=== PATIENT | male | born 1975 | race Caucasian/White ===

== ENCOUNTER 2018-08-31 08:39 | Inpatient (IN) | payer SELFPAY ==
[2018-08-31 09:20] LABS: Absolute Monocytes 0.4 K/uL (0.1-1.3); Absolute Neutrophil 5.4 K/uL (1.8-8.0); Basophils % 0.7 % (0-1.3); Eosinophils % 0.4 % (0-4.4); Hematocrit 42.2 % (39.6-49.0); Lymphocytes % 14.1 % (15.3-44.8); MPV 8.8 fL (7.6-11.3); Monocytes % 6.4 % (3.3-12.3); RBC Red Blood Cell Count 4.67 M/uL (4.33-5.43)
[2018-08-31 09:28] LABS: Protime INR 1.11
[2018-08-31 09:41] LABS: ALT/SGPT 11 U/L (12-78); AST/SGOT 11 U/L (15-37); Albumin 2.7 g/dL (3.4-5.0); Alkaline Phosphatase 75 U/L (45-117); BUN Blood Urea Nitrogen 13 mg/dL (7-18); Bicarbonate 32 mmol/L (21-32); Bilirubin Direct 0.2 mg/dL (0-0.2); Bilirubin Total 0.5 mg/dL (0.2-1.0); Glucose Level 103 mg/dL (74-106); Lipase 212 U/L (73-393); Potassium 3.9 mmol/L (3.5-5.1); Protein, Total 8.2 g/dL (6.4-8.2); Sodium Level 140 mmol/L (136-145)
[2018-08-31] MEDS ORDERED: ONDANSETRON 4 MG/2 ML VIAL ONE ×2 (09:42→15:57)
[2018-08-31] MEDS ORDERED: MORPHINE 4 MG/ML SYR ONE ×2 (09:42→14:22)
[2018-08-31 10:26] LABS: Urine Blood NEGATIVE (NEG); Urine Glucose NEGATIVE (NEG); Urine Protein 1+ (NEG); Urine Specific Gravity 1.025 (1.005-1.030)
--- NOTE | 2018-08-31 10:55 | RAD REPORT ---
EXAM DESCRIPTION: CT - Abdomen Pelvis W Contrast - 08/31/2018 10:37 am CLINICAL HISTORY: Abdominal pain, abscess, history of hernia repair with colostomy reversal May 2018 remote diverticulitis history COMPARISON: CT imaging July 2017 TECHNIQUE: Biphasic, helical CT imaging of the abdomen and pelvis was performed following 100 ml non -ionic IV contrast. Oral contrast was given. All CT scans are performed using dose optimization technique as appropriate and may include automated exposure control or mA/KV adjustment according to patient size. FINDINGS: No suspicious findings in the lung bases. The liver, spleen, and pancreas show no suspicious findings. Gallbladder and biliary tree are also wi thout suspicious finding. Symmetric renal function is seen with no hydronephrosis or suspicious renal mass. No pyelonephritis o r acute parenchymal process. No bladder abnormalities. Left adrenal nodularity has not changed from p rior imaging. No gastric dilatation or wall thickening. No acute small bowel finding. There is no appendicitis. Tip of the cecum through the mid sigmoid colon shows no acute finding. Rectosigmoid anastomotic site laura ws trace stranding in the adjacent fat. This is within normal for the relatively recent reversal. No abscess or acute finding in the fatty tissues adjacent to the anastomotic site. No intraperitoneal o r retroperitoneal free air or free fluid. No bulky lymphadenopathy. No suspicious bony findings. In the deep subcutaneous fatty tissues superficial or anterior margin of the rectus abdominis muscula ture there is a large abscess. The abscess collection begins approximately 5 cm below the xiphoid pro cess extending 22 cm inferiorly. Abscesses 10 cm transverse by 2.5 cm AP. Fluid and air filled the ca vity. There is a thickened, irregular rind. The abscess abuts the abdominal wall fascia. The deeper a bdominal wall musculature is not abnormally thickened or edematous. No extension into the intraperito dariusz space. IMPRESSION: Large 22 x 10 x 2.5 cm abscess in the superficial soft tissues along the anterior abdomi nal wall. Abscess begins approximately 5 cm below the xiphoid process and abuts the hernia repair mesh along th e entire length. No intraperitoneal extension. Rectus abdominis musculature does not appear to be definitively involve d.
[2018-08-31] MEDS ORDERED: VANCOMYCIN/NS 1 gm 1 GM/250 ML BAG IV ONE (11:30)
[2018-08-31] MEDS ORDERED: PIPER/TAZO/NS 3.375gm 3.375 GM/100 ML BAG ONE (11:33)
--- NOTE | 2018-08-31 12:44 | EDPHYS ---
Physician Documentation [facility] Name: Kevin Chaudhary Age: 42 yrs Sex: Male : 1975 Arrival Date: 08/31/2018 Time: 08:44 Bed 18 Private MD: ED Physician Fidencio Loco HPI: 08/31 09:00 This 42 yrs old Male presents to ER via EMS with complaints of Wound Check, pm1 Incisional Drainage. 09:00 Patient presents to ED for recheck of: abscess. The affected area is on the abdomen. pm1 The patient has not recently seen a physician. Patient presenting to the ER with complaints of abdominal pain and drainage of fluid from his abdomen. Patient with perforated diverticulitis repair here in 2015. Revision of colostomy in May 2018 and hernia repair in [facility]. Patient reports that he had some abdominal pain that worsened over the past three days and then he woke up with fluid from his stomach this AM. Since his surgery he has reported seroma to his abdomen . Historical: - Allergies: 08:52 No Known Allergies; ss - Home Meds: 08:52 Nexium 40 mg Oral cpDR 1 cap once daily [Active]; ss - PMHx: 08:52 Diverticulitis; GERD; ss - PSHx: 08:52 Hernia repair; colostomy reversal; ss - Immunization history:: Adult Immunizations up to date. - Social history:: Smoking status: Patient uses tobacco products, smokes one pack cigarettes per day. - Ebola Screening: : Patient denies exposure to infectious person Patient denies travel to an Ebola-affected area in the 21 days before illness onset. ROS: 09:00 Constitutional: Negative for fever, chills, and weight loss, Eyes: Negative for injury, pm1 pain, redness, and discharge, ENT: Negative for injury, pain, and discharge, Neck: Negative for injury, pain, and swelling, Cardiovascular: Negative for chest pain, palpitations, and edema, Respiratory: Negative for shortness of breath, cough, wheezing, and pleuritic chest pain. 09:00 Back: Negative for injury and pain, : Negative for injury, bleeding, discharge, and swelling, MS/Extremity: Negative for injury and deformity. 09:00 Abdomen/GI: Positive for abdominal pain, Negative for nausea, vomiting, and diarrhea. 09:00 Skin: Positive for abscess, of the abdomen. Exam: 09:00 Constitutional: This is a well developed, well nourished patient who is awake, alert, pm1 and in no acute distress. Head/Face: Normocephalic, atraumatic. Eyes: Pupils equal round and reactive to light, extra-ocular motions intact. Lids and lashes normal. Conjunctiva and sclera are non-icteric and not injected. Cornea within normal limits. Periorbital areas with no swelling, redness, or edema. ENT: Nares patent. No nasal discharge, no septal abnormalities noted. Tympanic membranes are normal and external auditory canals are clear. Oropharynx with no redness, swelling, or masses, exudates, or evidence of obstruction, uvula midline. Mucous membranes moist. Neck: Trachea midline, no thyromegaly or masses palpated, and no cervical lymphadenopathy. Supple, full range of motion without nuchal rigidity, or vertebral point tenderness. No Meningismus. Chest/axilla: Normal chest wall appearance and motion. Nontender with no deformity. No lesions are appreciated. Cardiovascular: Regular rate and rhythm with a normal S1 and S2. No gallops, murmurs, or rubs. Normal PMI, no JVD. No pulse deficits. Respiratory: Lungs have equal breath sounds bilaterally, clear to auscultation and percussion. No rales, rhonchi or wheezes noted. No increased work of breathing, no retractions or nasal flaring. 09:00 Back: No spinal tenderness. No costovertebral tenderness. Full range of motion. 09:00 Abdomen/GI: Inspection: scar(s), are noted in the midline, Bowel sounds: normal, Palpation: soft, mild abdominal tenderness, in the epigastric area and suprapubic area, mass, is not appreciated, rebound tenderness, is not appreciated. 09:00 Skin: Appearance: normal except for affected area, abscess, that is large, of the abdomen. Vital Signs: 08:46 BP 160 / 115; Pulse 80; Resp 18; Temp 97.8(TE); Pulse Ox 99% on R/A; Weight 102.06 kg; ss Height 6 ft. 0 in. (182.88 cm); Pain 6/10; 09:30 BP 147 / 99; Pulse 60; Resp 16 S; Pulse Ox 97% on R/A; Pain 6/10; jl7 10:50 BP 146 / 96; Pulse 52; Resp 16; Pulse Ox 98% ; Pain 3/10; jl7 12:18 BP 125 / 81; Pulse 53; Resp 16 S; Pulse Ox 97% on R/A; jl7 13:30 BP 135 / 90; Pulse 54; Resp 16 S; Pulse Ox 100% on R/A; jl7 15:00 BP 139 / 85; Pulse 50; Resp 16 S; Pulse Ox 97% on R/A; Pain 3/10; jl7 08:46 Body Mass Index 30.52 (102.06 kg, 182.88 cm) ss MDM: 08:46 Patient medically screened. pm1 11:34 Data reviewed: vital signs. Data interpreted: Pulse oximetry: on room air is 98 %. pm1 Interpretation: normal. Counseling: I had a detailed discussion with the patient and/or guardian regarding: the historical points, exam findings, and any diagnostic results supporting the discharge/admit diagnosis. 11:34 Physician consultation: Cedric Mclean MD was called at 11:35, was contacted at 11:35, pm1 regarding consult, patient's condition, and will see patient in ED, shortly. 12:41 Physician consultation: Cedric Mclean MD in the emergency department to see patient at pm1 12:42, Will take the patient to surgery now for drainage of abscess. 08/31 08:51 Order name: Basic Metabolic Panel; Complete Time: 09:56 pm08/31 08:51 Order name: CBC with Diff; Complete Time: 09:26 pm08/31 08:51 Order name: Creatinine for Radiology; Complete Time: 09:56 pm08/31 08:51 Order name: Hepatic Function; Complete Time: 09:56 pm08/31 08:51 Order name: Lipase; Complete Time: 09:56 pm1 08/31 08:51 Order name: PT-INR; Complete Time: 09:56 pm1 08/31 08:51 Order name: CT Abd/Pelvis - W/Contrast: PO and IV contrast; Complete Time: 11:08 pm08/31 08:51 Order name: Blood Culture Adult (2) pm1 08/31 10:05 Order name: Urine Dipstick--Ancillary (enter results); Complete Time: 10:39 kj1 08/31 08:51 Order name: IV Saline Lock; Complete Time: 09:39 pm1 08/31 08:51 Order name: Labs collected and sent; Complete Time: 09:39 pm1 08/31 08:51 Order name: Urine Dipstick-Ancillary (obtain specimen); Complete Time: 09:38 pm1 Administered Medications: 09:37 Drug: Zofran 4 mg Route: IVP; Site: right antecubital; jl7 10:30 Follow up: Response: No adverse reaction jl7 09:39 Drug: morphine 4 mg Route: IVP; Site: right antecubital; jl7 10:30 Follow up: Response: No adverse reaction; Pain is decreased jl7 11:31 Drug: Zosyn 3.375 grams Route: IVPB; Infused Over: 60 mins; Site: right antecubital; jl7 12:31 Follow up: Response: No adverse reaction; IV Status: Completed infusion jl7 12:45 Drug: vancoMYCIN 1 grams Route: IVPB; Infused Over: 2 hrs; Site: right antecubital; jl7 14:41 Follow up: Response: No adverse reaction; IV Status: Completed infusion jl7 14:26 Drug: morphine 4 mg Route: IVP; Site: right antecubital; jl7 15:00 Follow up: Response: No adverse reaction; Pain is decreased jl7 Disposition: 09/01 07:20 Co-signature as Attending Physician, Fidencio Loco MD I agree with the assessment and kdr plan of care. Disposition: 08/31/18 12:43 Hospitalization ordered by Cedric Mclean for Observation. Preliminary diagnosis is Cutaneous abscess of abdominal wall - Deep subcutaneous abscess of anterior abdominal wall. - Bed requested for Telemetry/MedSurg (observation). - Status is Observation. jl7 - Condition is Stable. - Problem is new. - Symptoms have improved. UTI on Admission? No Signatures: Dispatcher [employer] EDMS Fidencio Loco MD MD kdr Annika Ray RN RN Dre Benavidez NP [employer] pm1 Mana Christensen RN RN jl7 Corrections: (The following items were deleted from the chart) 08/31 12:46 12:43 Hospitalization Ordered by Cedric Mclean MD for Observation. Preliminary pm1 diagnosis is Cutaneous abscess of abdominal wall. Bed requested for Telemetry/MedSurg (observation). Status is Observation. Condition is Stable. Problem is new. Symptoms have improved. UTI on Admission? No. pm1 15:27 12:46 08/31/2018 12:43 Hospitalization Ordered by Cedric Mclean MD for Observation. jl7 Preliminary diagnosis is Cutaneous abscess of abdominal wall - Deep subcutaneous abscess of anterior abdominal wall. Bed requested for Telemetry/MedSurg (observation). Status is Observation. Condition is Stable. Problem is new. Symptoms have improved. UTI on Admission? No. pm1
--- NOTE | 2018-08-31 12:44 | ER ---
Nurse's Notes [facility] Name: Kevin Chaudhary Age: 42 yrs Sex: Male : 1975 Arrival Date: 08/31/2018 Time: 08:44 Bed 18 Private MD: Diagnosis: Cutaneous abscess of abdominal wall-Deep subcutaneous abscess of anterior abdominal wall Presentation: 08/31 08:47 Presenting complaint: Patient states: hernia repair and colostomy reversal surgery on 05/31/2018. Pt reports he has not had any complications other than fluid collection in upper incision, but when he woke up this morning, he noticed drainage all over his bed. Pt denies fever. Transition of care: patient was not received from another setting of care. Onset of symptoms was August 31, 2018. Risk Assessment: Do you want to hurt yourself or someone else? Patient reports no desire to harm self or others. Initial Sepsis Screen: Does the patient meet any 2 criteria? No. Patient's initial sepsis screen is negative. Does the patient have a suspected source of infection? Yes: Skin breakdown/wound. Care prior to arrival: None. 08:47 Method Of Arrival: EMS: [facility] 08:47 Acuity: NIHARIKA 3 ss Historical: - Allergies: 08:52 No Known Allergies; ss - Home Meds: 08:52 Nexium 40 mg Oral cpDR 1 cap once daily [Active]; ss - PMHx: 08:52 Diverticulitis; GERD; ss - PSHx: 08:52 Hernia repair; colostomy reversal; ss - Immunization history:: Adult Immunizations up to date. - Social history:: Smoking status: Patient uses tobacco products, smokes one pack cigarettes per day. - Ebola Screening: : Patient denies exposure to infectious person Patient denies travel to an Ebola-affected area in the 21 days before illness onset. Screenin:04 Abuse screen: Denies threats or abuse. Denies injuries from another. Nutritional jl7 screening: No deficits noted. Tuberculosis screening: No symptoms or risk factors identified. Fall Risk IV access (20 points). Total Gama Fall Scale indicates No Risk (0-24 pts). Assessment: 08:45 General: Appears in no apparent distress. uncomfortable, Behavior is calm, cooperative, jl7 appropriate for age. Pain: Complains of pain in all over, chronic Pain currently is 5 out of 10 on a pain scale. Neuro: Level of Consciousness is awake, alert, obeys commands, Oriented to person, place, time, situation. Cardiovascular: Patient's skin is warm and dry. Respiratory: Airway is patent Respiratory effort is even, unlabored, Respiratory pattern is regular, symmetrical. GI: Abdomen is round non-distended, discolored, Redness and scarring noted. : No signs and/or symptoms were reported regarding the genitourinary system. EENT: No signs and/or symptoms were reported regarding the EENT system. Derm: Skin is pink, warm \T\ dry. Musculoskeletal: No signs and/or symptoms reported regarding the musculoskeletal system. 09:05 Reassessment: Pt finished drinking oral contrast, CT notified. jl7 09:30 Reassessment: Pt requesting something for pain, ERP notified, see MAR for orders. jl7 10:30 Reassessment: Patient appears in no apparent distress at this time. Patient and/or 7 family updated on plan of care and expected duration. Pain level reassessed. Patient is alert, oriented x 3, equal unlabored respirations, skin warm/dry/pink. Patient states feeling better. Patient states symptoms have improved. 12:19 Reassessment: Patient appears in no apparent distress at this time. No changes from jl7 previously documented assessment. Patient and/or family updated on plan of care and expected duration. Pain level reassessed. Patient is alert, oriented x 3, equal unlabored respirations, skin warm/dry/pink. 12:45 Reassessment: Dr. Mclean at bedside discussing plan of care. jl7 Vital Signs: 08:46 BP 160 / 115; Pulse 80; Resp 18; Temp 97.8(TE); Pulse Ox 99% on R/A; Weight 102.06 kg; ss Height 6 ft. 0 in. (182.88 cm); Pain 6/10; 09:30 BP 147 / 99; Pulse 60; Resp 16 S; Pulse Ox 97% on R/A; Pain 6/10; jl7 10:50 BP 146 / 96; Pulse 52; Resp 16; Pulse Ox 98% ; Pain 3/10; jl7 12:18 BP 125 / 81; Pulse 53; Resp 16 S; Pulse Ox 97% on R/A; jl7 13:30 BP 135 / 90; Pulse 54; Resp 16 S; Pulse Ox 100% on R/A; jl7 15:00 BP 139 / 85; Pulse 50; Resp 16 S; Pulse Ox 97% on R/A; Pain 3/10; jl7 08:46 Body Mass Index 30.52 (102.06 kg, 182.88 cm) ED Course: 08:44 Patient arrived in ED. jl7 08:46 Dre Langford NP is PHCP. pm1 08:46 Fidencio Loco MD is Attending Physician. pm1 08:46 Arm band placed on right wrist. ss 08:51 Triage completed. ss 09:01 Mana Christensen, TRAY is Primary Nurse. jl7 09:04 Patient has correct armband on for positive identification. Placed in gown. Bed in low jl7 position. Call light in reach. Side rails up X 1. Pulse ox on. NIBP on. 10:36 CT completed. Patient tolerated procedure well. Patient moved to CT via wheelchair. jg6 Patient moved back from CT. 10:38 CT Abd/Pelvis - W/Contrast: PO and IV contrast In Process Unspecified. EDMS 12:42 Cedric Mclean MD is Hospitalizing Provider. pm1 15:26 No provider procedures requiring assistance completed. Patient admitted, IV remains in jl7 place. intact, No redness/swelling at site. Administered Medications: 09:37 Drug: Zofran 4 mg Route: IVP; Site: right antecubital; jl7 10:30 Follow up: Response: No adverse reaction jl7 09:39 Drug: morphine 4 mg Route: IVP; Site: right antecubital; jl7 10:30 Follow up: Response: No adverse reaction; Pain is decreased jl7 11:31 Drug: Zosyn 3.375 grams Route: IVPB; Infused Over: 60 mins; Site: right antecubital; jl7 12:31 Follow up: Response: No adverse reaction; IV Status: Completed infusion jl7 12:45 Drug: vancoMYCIN 1 grams Route: IVPB; Infused Over: 2 hrs; Site: right antecubital; jl7 14:41 Follow up: Response: No adverse reaction; IV Status: Completed infusion jl7 14:26 Drug: morphine 4 mg Route: IVP; Site: right antecubital; jl7 15:00 Follow up: Response: No adverse reaction; Pain is decreased jl7 Outcome: 12:43 Decision to Hospitalize by Provider. pm1 15:26 Admitted to OR accompanied by nurse, via stretcher, with chart. jl7 15:26 Condition: stable 15:26 Discharge instructions given to patient, Instructed on the need for admit, Demonstrated understanding of instructions. 15:27 Patient left the ED. jl7 Signatures: Dispatcher [employer] EDMS Annika Ray RN RN ss Dre Langford NP THREAD P[employer]ER pm1 Mana Christensen RN RN jl7 Rosio Dumont jg6 Corrections: (The following items were deleted from the chart) 10:51 10:50 BP 146 / 96; Pulse 52bpm; Resp 62bpm; Pulse Ox 98%; Pain 3/10; jl7 jl7 13:06 12:33 Reassessment: Charo with [facility] calls stating she is on her way to 7 evaluate patient. ss
--- NOTE | 2018-08-31 15:14 | P.HP ---
Date of Service: 08/31/18 PC: This 42-year-old male presented to the emergency room with pain in his abdomen, penetrating abscess coming from a midline surgical incision. HPC: Patient apparently had a mesh repair done of an incisional hernia in May. The replaced the mesh with a biologic mesh. He developed a seroma postoperatively. Comes in now with infection and purulent drainage. PMH: Negative PSHx: Previous colon resection for ruptured diverticular disease. Colostomy takedown. Mesh repair of midline incision May. SOC: No known allergies SYS REVIEW: No cough, wheeze, shortness of breath. No chest pain or palpitations. Denies any fevers or chills. O/E awake alert vital signs are stable HEENT: Within normal limits Chest: Clear ABD: Has some erythema in the anterior abdominal wall. There is a midline incision that has some purulent drainage LOCO: Coming from a just below the umbilicus. Intact DATA: White count with left shift, CT scan demonstrates absence of the anterior abdominal wall abutting on top of his mesh repair IMPRESSION: Abdominal wall labs PLAN: I will take him to the operating room for a incision, drainage, sharp debridement of this abscess. The risks of this procedure have been discussed. The possibility of bleeding, infection, recurrence and need for further surgeries and procedures including removal of the mesh were explained. He understands and wants us to proceed.
[2018-08-31] MEDS ORDERED: FENTANYL CITR 100 MCG/2 ML ONE (15:30)
[2018-08-31] MEDS ORDERED: LIDOCAINE 1% MPF 5 ML VIAL ONE (15:30)
[2018-08-31] MEDS ORDERED: PROPOFOL 200 MG/20 ML VIAL IV ONE (15:30)
[2018-08-31] MEDS ORDERED: BUPIVACAINE 0.5% PF 10 ML VIAL ONE (15:32)
[2018-08-31] MEDS ORDERED: Ringers Lactate 1,000 ML IV ONE (15:36)
[2018-08-31] MEDS ORDERED: GLYCOPYRROLATE 0.2 MG/ML SYR ONE ×2 (15:50→16:08)
[2018-08-31] MEDS ORDERED: DEXAMETHASONE 10 MG/ML VIAL ONE (15:57)
[2018-08-31] MEDS ORDERED: KETOROLAC 30 MG/ML INJ ONE (15:57)
--- NOTE | 2018-08-31 16:03 | P.OP ---
Preoperative diagnosis: Abscess of the anterior abdominal wall, (12 inches x 4 inches) Postoperative diagnosis: The same Primary procedure: Incision, drainage, and sharp debridement of abscess of the anterior abdomi Anesthesia: General Estimated blood loss: Less than 10 cc Operative Technique: The patient brought the operating room and placed supine on the table. After the induction of adequate general endotracheal anesthesia, the area of the abdomen was prepped with a DuraPrep solution, he was draped in usual aseptic manner. Attention was turned towards the anterior abdominal wall. In the midline we could see there was a small pinhole opening just below the umbilicus. This was gently probed with a hemostatic and essentially the skin fell apart in this area for the full length of his prior surgery. It appears to be a seroma that became secondarily infected. The wound was opened for full 4 inches. The necrotic and fibrinous debris from inside was now sharply debrided using 11 blade and scraped clear with a cutting surgical curette. We were able to in certain a drain extending from the top a decision down to this area that we had opened. This Mayela drain was left in place. The wound was now loosely packed with half-inch iodoform gauze. A sterile dressing was then applied. Cultures both aerobic and anaerobic were sent. At the end of the procedure the patient was in a stable condition when sent to the recovery room. Complications: None Drain(s): Other (Dameron drain) Transferred to: Recovery Room Condition: Good
[2018-08-31] MEDS: HYDROMORPHONE HCL 1 MG/ML INJ ONE ×2 (16:20→16:25)
[2018-08-31] MEDS: NA CHLORIDE 0.9% 1,000 ML IV SCH ×2 (17:08→20:27)
[2018-08-31] MEDS: MORPHINE 4 MG/ML SYR IV PRN ×2 (20:28→22:30)
[2018-09-01] MEDS: MORPHINE 4 MG/ML SYR IV PRN ×4 (00:42→10:21)
[2018-09-01] MEDS: NA CHLORIDE 0.9% 1,000 ML IV SCH ×3 (07:25→20:32)
[2018-09-01] MEDS ORDERED: MORPHINE 4 MG/ML SYR IV PRN (11:21)
[2018-09-01] MEDS: HYDROCODONE/APAP 7.5/325 MG TAB PO PRN ×3 (12:12→20:21)
--- NOTE | 2018-09-01 14:20 | P.PN ---
Date of Service: 09/01/18 S: S: Patient feels well today, abdominal discomfort is relieved. Has a mild incisional pain. O: Packing removed from the did wound. A: Surgically stable P: Continue current therapy, will most likely Dc in a.m.. Pain is controlled on oral medication will Dc IV morphine. Patient to be instructed on dressing changes. He will most likely be treated as an outpatient with wet to dry dressings.
[2018-09-01] MEDS: PANTOPRAZOLE 40MG TABLET PO SCH (14:52)
[2018-09-01] MEDS ORDERED: ONDANSETRON 4 MG/2 ML VIAL IV PRN (19:02)
[2018-09-01] MEDS: PROMETHAZINE 25 MG/ML VIAL IV PRN (20:31)
[2018-09-02] MEDS: HYDROCODONE/APAP 7.5/325 MG TAB PO PRN ×4 (01:00→16:18)
[2018-09-02] MEDS: PROMETHAZINE 25 MG/ML VIAL IV PRN ×3 (03:10→16:18)
[2018-09-02] MEDS: NA CHLORIDE 0.9% 1,000 ML IV SCH (03:10)
[2018-09-02] MEDS: PANTOPRAZOLE 40MG TABLET PO SCH (08:33)
[2018-09-02] MEDS ORDERED: NS 0.9% VIAL 10 ML ONE (09:21)
--- NOTE | 2018-09-02 17:31 | P.PN ---
Date of Service: 09/02/18 S: Patient has been up ambulating today. The pain is well controlled, Perez is any pain medicine at this point he states O: Dressing taken down. Wound inspected. Mayela drain is been removed. The lower wound which is now measuring 4 inches x 2-1/2 inches open down to the fascia. It shows good clean tissue inside. No purulent drainage noted. A: Surgically stable P: The patient has been instructed on wound care. We have discussed how to change dressings, and control any bleeding that may occur as this wound starts to granulate in. He understands. He will be coming to see my office next Tuesday. Should he have any questions or problems he will return to the emergency room, or contact me.
== END 2018-09-02 18:05 | disposition home or self-care (01) | DRG 902 ==
LOC: ER 08:39 → DS 12:44 → 4TH 16:41
PROVIDERS: ADMIT Surgery; ATTEND Surgery
PROC: 0W9F00Z Drainage of Abdominal Wall with Drainage Device, Open Approach (ICD-10-PCS; 2018-08-31)
PROC: 0JB80ZZ Excision of Abdomen Subcutaneous Tissue and Fascia, Open Approach (ICD-10-PCS; principal; 2018-08-31 14:45)
DX: L76.34 Postprocedural seroma of skin and subcutaneous tissue following other procedure (principal); L02.211 Cutaneous abscess of abdominal wall; Y83.2 Surgical operation with anastomosis, bypass or graft as the cause of abnormal reaction of the patient, or of later complication, without mention of misadventure at the time of the procedure; Y73.8 Miscellaneous gastroenterology and urology devices associated with adverse incidents, not elsewhere classified; Y92.019 Unspecified place in single-family (private) house as the place of occurrence of the external cause
CPT/HCPCS: 36415; 74177; 80048; 80076; 81003; 83690; 85025; 85610; 87040; 87070; 87075; 87077; 87186; 87205; 96365; 96366; 96367; 96375; 99285; J1100; J1170; J2405; J2543; J2550; J2704; J3010; J3370; J7030; Q9967

== ENCOUNTER 2018-11-20 18:21 | Emergency (ER) | payer SELFPAY ==
[2018-11-20] MEDS ORDERED: CEFTRIAXONE/SWI 1gm 1 GM/10 ML SYR ONE (20:06)
[2018-11-20] MEDS ORDERED: ONDANSETRON 4 MG/2 ML VIAL ONE (20:06)
[2018-11-20] MEDS ORDERED: NA CHLORIDE 0.9% 1,000 ML ONE (20:06)
[2018-11-20] MEDS ORDERED: MORPHINE 4 MG/ML SYR ONE (20:06)
[2018-11-20 20:16] LABS: Absolute Monocytes 0.6 K/uL (0.1-1.3); Absolute Neutrophil 6.3 K/uL (1.8-8.0); Basophils % 0.7 % (0-1.3); Eosinophils % 0.2 % (0-4.4); Hematocrit 45.1 % (39.6-49.0); Lymphocytes % 13.1 % (15.3-44.8); MPV 10.3 fL (7.6-11.3); RBC Red Blood Cell Count 4.74 M/uL (4.33-5.43)
[2018-11-20 20:34] LABS: ALT/SGPT 21 U/L (12-78); AST/SGOT 16 U/L (15-37); Albumin 3.4 g/dL (3.4-5.0); Alkaline Phosphatase 71 U/L (45-117); BUN Blood Urea Nitrogen 15 mg/dL (7-18); Bicarbonate 28 mmol/L (21-32); Bilirubin Direct 0.2 mg/dL (0-0.2); Bilirubin Total 0.8 mg/dL (0.2-1.0); Glucose Level 97 mg/dL (74-106); Lipase 1247 U/L (73-393); Potassium 3.8 mmol/L (3.5-5.1); Protein, Total 8.2 g/dL (6.4-8.2); Sodium Level 137 mmol/L (136-145)
--- NOTE | 2018-11-20 22:46 | ER ---
Nurse's Notes [facility] Name: Kevin Chaudhary Age: 43 yrs Sex: Male : 1975 Arrival Date: 11/20/2018 Time: 18:24 Bed 28 Private MD: Diagnosis: Acute pancreatitis;Gastritis, unspecified Presentation: 11/20 18:35 Presenting complaint: Patient states: Reports upper abdominal and back pain for 3 days aj with vomiting. Care prior to arrival: None. 18:35 Method Of Arrival: Ambulatory aj 18:35 Acuity: NIHARIKA 3 aj 19:26 Transition of care: patient was not received from another setting of care. Onset of ca1 symptoms was November 19, 2018. Risk Assessment: Do you want to hurt yourself or someone else? Patient reports no desire to harm self or others. Initial Sepsis Screen: Does the patient meet any 2 criteria? No. Patient's initial sepsis screen is negative. Does the patient have a suspected source of infection? No. Patient's initial sepsis screen is negative. Triage Assessment: 18:36 General: Appears in no apparent distress. uncomfortable, Behavior is calm, cooperative, aj appropriate for age. Pain: Complains of pain in epigastric area, right upper quadrant and left upper quadrant. Neuro: Level of Consciousness is awake, alert, obeys commands, Oriented to person, place, time, situation, Appropriate for age. Respiratory: Airway is patent Respiratory effort is even, unlabored, Respiratory pattern is regular, symmetrical. GI: Reports upper abdominal pain, nausea, vomiting. Derm: Skin is intact, is healthy with good turgor, Skin is pink, warm \T\ dry. normal. Historical: - Allergies: 18:36 No Known Allergies; aj - Home Meds: 19:24 Nexium 40 mg Oral cpDR 1 cap once daily [Active]; ca1 - PMHx: 19:24 Diverticulitis; GERD; ca1 - PSHx: 19:24 Hernia repair; colostomy reversal; ca1 - Immunization history:: Adult Immunizations not up to date, Flu vaccine is not up to date. - Social history:: Patient uses alcohol, on a daily basis. Patient/guardian denies using street drugs, The patient lives with family, Smoking status: Patient uses tobacco products, smokes one pack cigarettes per day. - Ebola Screening: : Patient negative for fever greater than or equal to 101.5 degrees Fahrenheit, and additional compatible Ebola Virus Disease symptoms Patient denies exposure to infectious person Patient denies travel to an Ebola-affected area in the 21 days before illness onset. - Family history:: not pertinent. Screenin:24 Abuse screen: Denies threats or abuse. Denies injuries from another. Nutritional ca1 screening: No deficits noted. Tuberculosis screening: No symptoms or risk factors identified. Fall Risk None identified. Assessment: 19:17 General: Appears in no apparent distress. uncomfortable, Behavior is calm, cooperative, ca1 appropriate for age. Pain: Complains of pain in abdomen and left upper quadrant and right upper quadrant and epigastric area Pain radiates to back Pain currently is 8 out of 10 on a pain scale. Quality of pain is described as sharp, Pain began 1 day ago. Is continuous. Neuro: Level of Consciousness is awake, alert, obeys commands, Oriented to person, place, time, situation. Cardiovascular: Heart tones S1 S2 present Capillary refill < 3 seconds Patient's skin is warm and dry. Respiratory: Airway is patent is compromised Respiratory effort is even, unlabored, Respiratory pattern is regular, symmetrical, Breath sounds are clear bilaterally. GI: Abdomen is round non-distended, Bowel sounds present X 4 quads. Abd is soft X 4 quads Abdomen is tender to palpation in epigastric area, right upper quadrant and left upper quadrant Reports nausea, vomiting, since yesterday. last bowel movement was on Tuesday. : No deficits noted. No signs and/or symptoms were reported regarding the genitourinary system. EENT: No deficits noted. No signs and/or symptoms were reported regarding the EENT system. Derm: Skin is intact, is healthy with good turgor, Skin is pink, warm \T\ dry. Musculoskeletal: Circulation, motion, and sensation intact. Capillary refill < 3 seconds, Range of motion: intact in all extremities. 20:24 Reassessment: Patient appears in no apparent distress at this time. Patient and/or ca1 family updated on plan of care and expected duration. Pain level reassessed. Patient is alert, oriented x 3, equal unlabored respirations, skin warm/dry/pink. 21:17 Reassessment: Patient appears in no apparent distress at this time. Patient is alert, ca1 oriented x 3, equal unlabored respirations, skin warm/dry/pink. 22:10 Reassessment: Patient appears in no apparent distress at this time. Patient and/or ca1 family updated on plan of care and expected duration. Pain level reassessed. Patient is alert, oriented x 3, equal unlabored respirations, skin warm/dry/pink. 22:56 Reassessment: Patient appears in no apparent distress at this time. Patient is alert, ca1 oriented x 3, equal unlabored respirations, skin warm/dry/pink. Vital Signs: 18:36 BP 174 / 104; Pulse 76; Resp 19; Temp 97.7; Pulse Ox 98% on R/A; Weight 97.52 kg; aj Height 6 ft. 0 in. (182.88 cm); 19:24 BP 138 / 107; Pulse 69; Resp 18 S; Pulse Ox 95% on R/A; ca1 20:24 BP 145 / 100; Pulse 69; Resp 18 S; Pulse Ox 96% on R/A; ca1 21:17 BP 144 / 95; Pulse 59; Resp 18; Temp 98(O); Pulse Ox 97% on R/A; ca1 22:10 BP 144 / 95; Pulse 56; Resp 17 S; Temp 97.8(O); Pulse Ox 99% on R/A; ca1 22:58 BP 133 / 87; Pulse 63; Resp 17 S; Temp 98.1(O); Pulse Ox 95% on R/A; ca1 18:36 Body Mass Index 29.16 (97.52 kg, 182.88 cm) ED Course: 18:24 Patient arrived in ED. tw3 18:35 Triage completed. aj 18:36 Arm band placed on left wrist. Patient placed in an exam room. aj 19:11 Zari Gore, RN is Primary Nurse. ca1 19:18 Luther Bourne MD is Attending Physician. ma2 19:24 Patient has correct armband on for positive identification. Placed in gown. Bed in low ca1 position. Call light in reach. Side rails up X 1. Pulse ox on. NIBP on. Warm blanket given. 19:24 No provider procedures requiring assistance completed. ca1 19:39 Radiology exam delayed due to lab results not completed at this time. (BUN/Creatinine) vm2 IV insertion attempt and/or patient not having appropriate IV at this time. 19:45 Inserted saline lock: 20 gauge in left antecubital area, using aseptic technique. Blood ca1 collected. 20:06 Radiology exam delayed due to lab results not completed at this time. (BUN/Creatinine). vm2 22:56 IV discontinued, intact, bleeding controlled, No redness/swelling at site. Pressure ca1 dressing applied. Administered Medications: 19:45 Drug: NS 0.9% 1000 ml Route: IV; Rate: 1 bolus; Site: left antecubital; ca1 21:23 Follow up: Response: No adverse reaction; IV Status: Completed infusion ca1 19:46 Drug: Zofran 4 mg Route: IVP; Site: left antecubital; ca1 21:23 Follow up: Response: No adverse reaction; Nausea is decreased; Vomiting decreased ca1 19:50 Drug: morphine 4 mg Route: IVP; Site: left antecubital; ca1 21:24 Follow up: Response: No adverse reaction; Pain is decreased ca1 19:55 Drug: Rocephin 1 grams Route: IV; Rate: calculated rate; Site: left antecubital; ca1 21:24 Follow up: Response: No adverse reaction; IV Status: Completed infusion ca1 Outcome: 22:45 Discharge ordered by . karli 22:59 Discharged to home ambulatory. ca1 22:59 Condition: stable 22:59 Discharge instructions given to patient, Instructed on discharge instructions, follow up and referral plans. medication usage, Demonstrated understanding of instructions, follow-up care, medications, Prescriptions given X 4. 23:00 Patient left the ED. ca1 Signatures: Myah Ortez RN RN aj Wade, Tia 3 Octavia Guardado [facility] Luther Bourne MD MD njZari Jordan RN RN ca1
--- NOTE | 2018-11-20 22:46 | EDPHYS ---
Physician Documentation [facility] Name: Kevin Chaudhary Age: 43 yrs Sex: Male : 1975 Arrival Date: 11/20/2018 Time: 18:24 Bed 28 Private MD: ED Physician Luther Bourne HPI: 11/20 22:42 This 43 yrs old Male presents to ER via Ambulatory with complaints of ma2 Abdominal Pain. 22:42 Onset: The symptoms/episode began/occurred gradually, 6 day(s) ago. Associated signs ma2 and symptoms: Pertinent positives: nausea and vomiting, Pertinent negatives: anorexia, constipation, diarrhea, vomiting. Severity of pain: At its worst the pain was mild moderate in the emergency department the pain is unchanged. The patient has not experienced similar symptoms in the past. Historical: - Allergies: 18:36 No Known Allergies; aj - Home Meds: 19:24 Nexium 40 mg Oral cpDR 1 cap once daily [Active]; ca1 - PMHx: 19:24 Diverticulitis; GERD; ca1 - PSHx: 19:24 Hernia repair; colostomy reversal; ca1 - Immunization history:: Adult Immunizations not up to date, Flu vaccine is not up to date. - Social history:: Patient uses alcohol, on a daily basis. Patient/guardian denies using street drugs, The patient lives with family, Smoking status: Patient uses tobacco products, smokes one pack cigarettes per day. - Ebola Screening: : Patient negative for fever greater than or equal to 101.5 degrees Fahrenheit, and additional compatible Ebola Virus Disease symptoms Patient denies exposure to infectious person Patient denies travel to an Ebola-affected area in the 21 days before illness onset. - Family history:: not pertinent. ROS: 22:42 Constitutional: Negative for fever, chills, and weight loss. ma2 22:42 Abdomen/GI: Positive for abdominal pain, Negative for vomiting, abdominal cramps, rectal bleeding. 22:42 All other systems are negative. Exam: 22:42 Constitutional: This is a well developed, well nourished patient who is awake, alert, ma2 and in no acute distress. Chest/axilla: Normal chest wall appearance and motion. Nontender with no deformity. No lesions are appreciated. Cardiovascular: Regular rate and rhythm with a normal S1 and S2. No gallops, murmurs, or rubs. Normal PMI, no JVD. No pulse deficits. Respiratory: Lungs have equal breath sounds bilaterally, clear to auscultation and percussion. No rales, rhonchi or wheezes noted. No increased work of breathing, no retractions or nasal flaring. Abdomen/GI: Soft, non-tender, with normal bowel sounds. No distension or tympany. No guarding or rebound. No evidence of tenderness throughout. MS/ Extremity: Pulses equal, no cyanosis. Neurovascular intact. Full, normal range of motion. Neuro: Awake and alert, GCS 15, oriented to person, place, time, and situation. Cranial nerves II-XII grossly intact. Motor strength 5/5 in all extremities. Sensory grossly intact. Cerebellar exam normal. Normal gait. Vital Signs: 18:36 BP 174 / 104; Pulse 76; Resp 19; Temp 97.7; Pulse Ox 98% on R/A; Weight 97.52 kg; aj Height 6 ft. 0 in. (182.88 cm); 19:24 BP 138 / 107; Pulse 69; Resp 18 S; Pulse Ox 95% on R/A; ca1 20:24 BP 145 / 100; Pulse 69; Resp 18 S; Pulse Ox 96% on R/A; ca1 21:17 BP 144 / 95; Pulse 59; Resp 18; Temp 98(O); Pulse Ox 97% on R/A; ca1 22:10 BP 144 / 95; Pulse 56; Resp 17 S; Temp 97.8(O); Pulse Ox 99% on R/A; ca1 22:58 BP 133 / 87; Pulse 63; Resp 17 S; Temp 98.1(O); Pulse Ox 95% on R/A; ca1 18:36 Body Mass Index 29.16 (97.52 kg, 182.88 cm) aj MDM: 19:23 Patient medically screened. ma2 22:42 Differential diagnosis: diverticulitis, gastritis, gastroesophageal reflux disease. ma2 Data reviewed: vital signs, nurses notes. Counseling: I had a detailed discussion with the patient and/or guardian regarding: the historical points, exam findings, and any diagnostic results supporting the discharge/admit diagnosis, the presence of at least one elevated blood pressure reading (>120/80) during this emergency department visit. Response to treatment: There is no appreciated change of the patient's symptoms at this time. Response to treatment: the patient's symptoms have resolved after treatment. ED course: low risk pancreatitis per estela score . 11/20 19:37 Order name: Basic Metabolic Panel; Complete Time: 21:27 ma2 11/20 19:37 Order name: CBC with Diff; Complete Time: 21:27 mn2 11/20 19:37 Order name: Creatinine for Radiology; Complete Time: 21:27 ma2 11/20 19:37 Order name: Hepatic Function; Complete Time: 21:27 ma2 11/20 19:37 Order name: Lipase; Complete Time: 21:27 ma2 11/20 19:37 Order name: CT Abd/Pelvis - IV Contrast Only mn2 11/20 19:37 Order name: IV Saline Lock; Complete Time: 19:48 ma2 11/20 19:37 Order name: Labs collected and sent; Complete Time: 19:48 ma2 Administered Medications: 19:45 Drug: NS 0.9% 1000 ml Route: IV; Rate: 1 bolus; Site: left antecubital; ca1 21:23 Follow up: Response: No adverse reaction; IV Status: Completed infusion ca1 19:46 Drug: Zofran 4 mg Route: IVP; Site: left antecubital; ca1 21:23 Follow up: Response: No adverse reaction; Nausea is decreased; Vomiting decreased ca1 19:50 Drug: morphine 4 mg Route: IVP; Site: left antecubital; ca1 21:24 Follow up: Response: No adverse reaction; Pain is decreased ca1 19:55 Drug: Rocephin 1 grams Route: IV; Rate: calculated rate; Site: left antecubital; ca1 21:24 Follow up: Response: No adverse reaction; IV Status: Completed infusion ca1 Disposition: 11/20/18 22:45 Discharged to Home. Impression: Acute pancreatitis, Gastritis, unspecified. - Condition is Stable. - Discharge Instructions: Gastritis, Adult. - Prescriptions for Bentyl 20 mg Oral Tablet - take 1 tablet by ORAL route every 6 hours As needed; 20 tablet. Tylenol- Codeine #3 300-30 mg Oral Tablet - take 2 tablet by ORAL route every 6 hours As needed; 30 tablet. Zofran 4 mg Oral Tablet - take 1 tablet by ORAL route every 12 hours As needed; 20 tablet. promethazine 25 mg Oral Tablet - take 1 tablet by ORAL route every 6 hours As needed; 20 tablet. - Medication Reconciliation Form, Thank You Letter, Antibiotic Education, Prescription Opioid Use form. - Follow up: Private Physician; When: Tomorrow; Reason: Continuance of care. Signatures: Dispatcher [employer] Myah Ramos RN RN Luther Jaramillo MD MD ma2 Zari Gore RN RN ca1 Corrections: (The following items were deleted from the chart) 23:00 22:45 11/20/2018 22:45 Discharged to Home. Impression: Acute pancreatitis; Gastritis, ca1 unspecified. Condition is Stable. Forms are Medication Reconciliation Form, Thank You Letter, Antibiotic Education, Prescription Opioid Use. Follow up: Private Physician; When: Tomorrow; Reason: Continuance of care. maIngrid
--- NOTE | 2018-11-21 10:33 | RAD REPORT ---
EXAM DESCRIPTION: CT - Abdomen Pelvis W Contrast - 11/21/2018 1:18 am CLINICAL HISTORY: 43 years Male, ABD PAIN COMPARISON: None. TECHNIQUE: 5 mm axial images of the abdomen and pelvis were obtained with intravenous contrast. 3 mm coronal and sagittal reformatted images were obtained.. This exam was performed according to our departmental dose-optimization program, which includes autom ated exposure control, adjustment of the mA and/or kV according to patient size and/or use of iterati ve reconstruction technique. INTRAVENOUS CONTRAST: Not documented. Please refer to medical record. FINDINGS: Lung bases: Normal. Liver: Normal. Spleen: Normal. Pancreas: Normal. Gallbladder: Normal. Right adrenal gland: Normal. Left adrenal gland: Normal. Right kidney: There is mild diffuse cortical scarring. There are 3 small cortical cysts. The largest cyst measures 1.6 x 1.5 cm. Left kidney: There is a nonobstructing stone midpole measuring 0.2 x 0.1 cm. There is a small cortica l cyst in the upper pole measuring 0.4 x 0.4 cm. There is mild cortical scarring. Retroperitoneal structures: There is mild atherosclerotic disease about the distal abdominal aorta an d iliac arteries. Bowel survey: There is moderately severe mural thickening and edema along the distal gastric body, ga stric antrum, and the first and second portions of the duodenum. Findings could represent gastroduode nitis versus peptic ulcer disease. There is a moderate amount residual stool within the ascending and transverse colon. There is mild sigmoid diverticulosis. The appendix is unremarkable. The distal ileum is unremarkable.. Urinary bladder: Normal. Prostate gland: Normal size. Peritoneal cavity: There is a small amount of free fluid in the pelvis.. Mesentery structures: Normal. Abdominal wall: No hernia. Bony structures: No suspicious lesions. IMPRESSION: 1. Mural thickening with adjacent edema involving the distal portion of the stomach in t he proximal duodenum. Differential would include gastroduodenitis versus peptic ulcer disease. Electronically signed by: Shemar Moncada MD 11/20/2018 9:37 PM CDT Due to temporary technical issues with the PACS/Fluency reporting system, reports are being signed by the in house radiologist as a courtesy to ensure prompt reporting. The interpreting radiologist is f ully responsible for the content of the report.
== END 2018-11-20 23:00 | disposition home or self-care (01) ==
LOC: ER 18:21
DX: K85.90 Acute pancreatitis without necrosis or infection, unspecified (principal); K29.70 Gastritis, unspecified, without bleeding; K21.9 Gastro-esophageal reflux disease without esophagitis; F17.210 Nicotine dependence, cigarettes, uncomplicated
CPT/HCPCS: 36415; 74177; 80048; 80076; 83690; 85025; 96365; 96375; 99284; J0696; J2405; J7030; Q9967

== ENCOUNTER 2018-12-03 09:04 | Emergency (ER) | payer SELFPAY ==
[2018-12-03] MEDS ORDERED: ONDANSETRON 4 MG/2 ML VIAL ONE ×2 (09:31→14:04)
[2018-12-03] MEDS ORDERED: MORPHINE 4 MG/ML SYR ONE ×2 (09:31→14:04)
[2018-12-03 09:35] LABS: Basophils % 0.4 % (0-1.3); Eosinophils % 0.2 % (0-4.4); Hematocrit 41.3 % (39.6-49.0); Lymphocytes % 9.9 % (15.3-44.8); MPV 10.5 fL (7.6-11.3); RBC Red Blood Cell Count 4.49 M/uL (4.33-5.43)
[2018-12-03 10:26] LABS: ALT/SGPT 19 U/L (12-78); AST/SGOT 17 U/L (15-37); Albumin 3.2 g/dL (3.4-5.0); Alkaline Phosphatase 72 U/L (45-117); BUN Blood Urea Nitrogen 20 mg/dL (7-18); Bicarbonate 26 mmol/L (21-32); Bilirubin Direct 0.3 mg/dL (0-0.2); Bilirubin Total 0.6 mg/dL (0.2-1.0); Glucose Level 96 mg/dL (74-106); Lipase 1457 U/L (73-393); Potassium 3.5 mmol/L (3.5-5.1); Protein, Total 8.2 g/dL (6.4-8.2); Sodium Level 135 mmol/L (136-145)
[2018-12-03 10:31] LABS: Blood Morphology Comment NOT SEEN (NOT SEEN); Platelet Estimate ADEQ; Urine White Blood Cell Casts OK
--- NOTE | 2018-12-03 12:17 | RAD REPORT ---
EXAM DESCRIPTION: CT - Abdomen Pelvis W Contrast - 12/03/2018 11:54 am CLINICAL HISTORY: Abdominal pain, history of diverticulitis with partial colon resection June 01 COMPARISON: CT study November 20, 2018 TECHNIQUE: Biphasic, helical CT imaging of the abdomen and pelvis was performed following 100 ml non -ionic IV contrast. No oral contrast administered. All CT scans are performed using dose optimization technique as appropriate and may include automated exposure control or mA/KV adjustment according to patient size. FINDINGS: No suspicious findings in the lung bases. The liver and spleen show no suspicious findings. Gallbladder and biliary tree are also without suspi cious finding. Symmetric renal function is seen with no hydronephrosis or suspicious renal mass. No pyelonephritis o r acute parenchymal process. No urinary bladder abnormality. Small renal cortical cysts are present. No adrenal abnormalities. The November 20 CT study showed mural thickening, fluid and stranding along the stomach and proximal duod enum. Those findings are more pronounced than seen on prior imaging. Along the superior greater curva ture of the stomach a 6.4 centimeter fluid collection has developed. Along the posterior wall of the body and antrum of the stomach additional small loculated cystic collections have developed up to 4 c m in size. Gastric wall thickening and edema changes persist in the body and antrum. There is wall th ickening and edema of the duodenal C-loop. These fluid collections position between the stomach and p ancreas are much more closely approximated to the stomach indicating gastric etiology rather than a p ancreatic primary process. No mass of the pancreatic parenchyma. The edema and stranding in the upper abdomen are closely approximated to the stomach rather than the pancreas. Fluid in stranding are see n along the anterior right pararenal fascia. Small amount free fluid is seen in the peritoneal cavity. The appendix is normal. No acute colon proc ess identified. Rectosigmoid anastomotic site shows no suspicious finding. No acute small bowel findi ng past the ligament of Treitz. No free air or pneumatosis. Postsurgical changes noted to the anterior abdominal wall. No bulky ly mphadenopathy or mass. No suspicious bony findings. IMPRESSION: Wall thickening and edema of the gastric body, gastric antrum and duodenal C-loop. Edema and stranding changes are worse than seen November 20. Patient has developed since the November 20 study multiple circumscribed cystic masses along the margin o f the stomach. Postinflammatory pseudocysts or abscess collections are both possible. Findings favor a prominent gastroduodenitis and patient may well have peptic ulcer disease. Contained perforations are not excluded. No free air. The loculated fluid collections are much more closely approximated the stomach rather th an the pancreas. No specific findings that would indicate a primary pancreatic process. Small quantity of free fluid in the peritoneal cavity.
[2018-12-03] MEDS ORDERED: PANTOPRAZOLE 40 MG INJ ONE (12:38)
[2018-12-03] MEDS ORDERED: NA CHLORIDE 0.9% 1,000 ML ONE (14:04)
--- NOTE | 2018-12-03 14:11 | ER ---
Nurse's Notes [facility] Name: Kevin Chaudhary Age: 43 yrs Sex: Male : 1975 Arrival Date: 12/03/2018 Time: 09:07 Bed 14 Private MD: Diagnosis: Gastroduodenitis, unspecified-Cannot r/o abscess or perforation Presentation: 12/03 09:08 Presenting complaint: Patient states: S/P colon surgery for diverticulitis and hernia hj repair last May 2018, was here last week for abd pain, complaints of abd pain and N/V x 3 days, haven't had a BM for 2-3 days now; reports back pain; denies fever and chills; pain is 10/10;. Transition of care: patient was not received from another setting of care. Onset of symptoms was December 03, 2018. Risk Assessment: Do you want to hurt yourself or someone else? Patient reports no desire to harm self or others. Initial Sepsis Screen: Does the patient meet any 2 criteria? No. Patient's initial sepsis screen is negative. Does the patient have a suspected source of infection? No. Patient's initial sepsis screen is negative. Care prior to arrival: None. 09:08 Acuity: NIHARIKA 3 hj 09:08 Method Of Arrival: EMS: [facility] Triage Assessment: 09:12 General: Appears in no apparent distress. uncomfortable, Behavior is calm, cooperative, hj appropriate for age. Pain: Complains of pain in back and abdomen. GI: Reports lower abdominal pain, upper abdominal pain, bloating, constipation, nausea, vomiting. Historical: - Allergies: 09:11 No Known Allergies; hj - Home Meds: 09:11 Nexium 40 mg Oral cpDR 1 cap once daily [Active]; hj - PMHx: 09:11 Diverticulitis; GERD; hj - PSHx: 09:11 Hernia repair; colostomy reversal; hj - Immunization history:: Adult Immunizations up to date. - Social history:: Smoking status: Patient/guardian denies using tobacco. - Ebola Screening: : Patient negative for fever greater than or equal to 101.5 degrees Fahrenheit, and additional compatible Ebola Virus Disease symptoms Patient denies exposure to infectious person Patient denies travel to an Ebola-affected area in the 21 days before illness onset. Screenin:12 Abuse screen: Denies threats or abuse. Denies injuries from another. Nutritional hj screening: No deficits noted. Tuberculosis screening: No symptoms or risk factors identified. Fall Risk None identified. Assessment: 09:12 GI: Bowel sounds Abdomen is tender to palpation Guarding noted. hj 09:12 General: Appears in no apparent distress. uncomfortable, Behavior is calm, cooperative, hj appropriate for age. Pain: Complains of pain in abdomen. Neuro: Level of Consciousness is awake, alert, obeys commands, Oriented to person, place, time, situation, Appropriate for age. Cardiovascular: Capillary refill < 3 seconds Patient's skin is warm and dry. Respiratory: Airway is patent Respiratory effort is even, unlabored, Respiratory pattern is regular, symmetrical. : No signs and/or symptoms were reported regarding the genitourinary system. EENT: No signs and/or symptoms were reported regarding the EENT system. Derm: No signs and/or symptoms reported regarding the dermatologic system. Musculoskeletal: No signs and/or symptoms reported regarding the musculoskeletal system. 10:30 Reassessment: Patient and/or family updated on plan of care and expected duration. Pain hj level reassessed. Patient is alert, oriented x 3, equal unlabored respirations, skin warm/dry/pink. awaiting results and POC;. 11:30 Reassessment: Patient and/or family updated on plan of care and expected duration. Pain hj level reassessed. Patient is alert, oriented x 3, equal unlabored respirations, skin warm/dry/pink. Patient states feeling better. 13:00 Reassessment: Patient and/or family updated on plan of care and expected duration. Pain hj level reassessed. Patient is alert, oriented x 3, equal unlabored respirations, skin warm/dry/pink. for transfer to [facility];. 14:11 Reassessment: awaiting for placement at [facility];. hj 14:58 Reassessment: report called to Jo Ann Austin RN. Vital Signs: 09:08 BP 154 / 118; Pulse 72; Resp 18; Temp 98.1; Pulse Ox 100% on R/A; Weight 97.52 kg; hj Height 6 ft. 1 in. (185.42 cm); Pain 10/10; 10:30 BP 128 / 87; Pulse 81; Resp 18; Pulse Ox 100% on R/A; hj 11:29 BP 121 / 97; Pulse 81; Resp 18; Pulse Ox 97% on R/A; hj 13:12 BP 125 / 89; Pulse 79; Resp 18; Pulse Ox 100% on R/A; hj 13:55 BP 132 / 91; Pulse 73; Resp 18; Pulse Ox 100% on R/A; hj 14:59 BP 128 / 85; Pulse 74; Resp 18; Pulse Ox 100% on R/A; hj 09:08 Body Mass Index 28.37 (97.52 kg, 185.42 cm) hj ED Course: 09:07 Patient arrived in ED. hj 09:08 Christopher Perdomo PA is PHCP. jr8 09:08 Shahab Lemon MD is Attending Physician. jr8 09:10 Triage completed. hj 09:12 Arm band placed on right wrist. hj 09:13 Giancarlo Shepard RN is Primary Nurse. hj 09:13 Patient has correct armband on for positive identification. Placed in gown. Bed in low hj position. Call light in reach. Side rails up X 1. 09:23 Initial lab(s) drawn, by me, sent to lab. Inserted saline lock: 22 gauge in right jb1 antecubital area, using aseptic technique. Blood collected. 11:54 CT Abd/Pelvis - IV Contrast Only In Process Unspecified. EDMS 11:54 CT completed. Patient tolerated procedure well. Patient moved back from CT. kw1 14:57 No provider procedures requiring assistance completed. Patient transferred, IV remains hj in place. intact. Administered Medications: 09:23 Drug: Zofran 4 mg Route: IVP; Site: right antecubital; hj 11:55 Follow up: Response: No adverse reaction hj 09:23 Drug: morphine 4 mg Route: IVP; Site: right antecubital; hj 11:55 Follow up: Response: No adverse reaction hj 12:21 Drug: ProTONIX 40 mg Route: IVP; Site: right antecubital; hj 12:26 Follow up: Response: No adverse reaction hj 13:54 Drug: morphine 4 mg Route: IVP; Site: right antecubital; hj 13:59 Follow up: Response: Pain is decreased hj 13:54 Drug: Zofran 4 mg Route: IVP; Site: right antecubital; hj 13:58 Follow up: Response: No adverse reaction 13:54 Drug: NS 0.9% 1000 ml Route: IV; Rate: 75 ml/hr; Site: right antecubital; hj 14:42 Follow up: IV Status: Infusion continued upon transfer hj 14:17 Drug: ProTONIX 8 mg/hr Route: IV; Rate: 25 ml/hr; Site: right antecubital; hj 14:17 Follow up: IV Status: Infusion continued upon transfer hj 14:43 Follow up: IV Status: Infusion continued upon transfer Outcome: 14:10 ER care complete, transfer ordered by MD. reeys 14:58 Transferred by ground EMS to [facility], [facility] [place], Transfer form completed. X-rays sent w/ patient. 14:58 Condition: stable 14:58 Instructed on the need for transfer, Demonstrated understanding of instructions. 15:52 Patient left the ED. Signatures: Dispatcher [employer] EDNeeraj Montes De Oca jb1 Christopher Perdomo PA PA jr8 Giancarlo Shepard RN RN Darlene Gomez kw1 Corrections: (The following items were deleted from the chart) 09:13 09:08 Method Of Arrival: Ambulatory [facility]
--- NOTE | 2018-12-03 14:11 | EDPHYS ---
Physician Documentation [facility] Name: Kevin Chaudhary Age: 43 yrs Sex: Male : 1975 Arrival Date: 12/03/2018 Time: 09:07 Bed 14 Private MD: ED Physician Shahab Lemon HPI: 12/03 09:43 This 43 yrs old Male presents to ER via EMS with complaints of Abdominal Pain.jr8 09:43 The patient presents with abdominal pain right lower quadrant, right mid abdomen and jr8 flank. Onset: The symptoms/episode began/occurred acutely, today. The symptoms do not radiate. Associated signs and symptoms: Pertinent positives: nausea and vomiting. The symptoms are described as stabbing. Modifying factors: The symptoms are alleviated by nothing, the symptoms are aggravated by food. Severity of pain: At its worst the pain was moderate in the emergency department the pain is unchanged. It is unknown whether or not the patient has had similar symptoms in the past. The patient has been recently seen at the [facility] Emergency Department, a couple of weeks ago. Patient seen for upper abdominal pain on 11/20/18. Diagnosed with gastroduodenitis vs PUD. Stated that for the past three days has had n/v. Finally was able to eat something last night and since then has had abdominal pain . Historical: - Allergies: 09:11 No Known Allergies; hj - Home Meds: 09:11 Nexium 40 mg Oral cpDR 1 cap once daily [Active]; hj - PMHx: 09:11 Diverticulitis; GERD; hj - PSHx: 09:11 Hernia repair; colostomy reversal; hj - Immunization history:: Adult Immunizations up to date. - Social history:: Smoking status: Patient/guardian denies using tobacco. - Ebola Screening: : Patient negative for fever greater than or equal to 101.5 degrees Fahrenheit, and additional compatible Ebola Virus Disease symptoms Patient denies exposure to infectious person Patient denies travel to an Ebola-affected area in the 21 days before illness onset. ROS: 09:43 Eyes: Negative for injury, pain, redness, and discharge, ENT: Negative for injury, jr8 pain, and discharge, Neck: Negative for injury, pain, and swelling, Cardiovascular: Negative for chest pain, palpitations, and edema, Respiratory: Negative for shortness of breath, cough, wheezing, and pleuritic chest pain, Back: Negative for injury and pain, MS/Extremity: Negative for injury and deformity, Skin: Negative for injury, rash, and discoloration, Neuro: Negative for headache, weakness, numbness, tingling, and seizure. 09:43 Abdomen/GI: Positive for abdominal pain, nausea and vomiting, constipation, Negative for diarrhea, abdominal distension, anorexia, dysphagia, hematemesis, black/tarry stool, rectal pain, rectal bleeding, bowel incontinence, flatulence. Exam: 09:43 Eyes: Pupils equal round and reactive to light, extra-ocular motions intact. Lids and jr8 lashes normal. Conjunctiva and sclera are non-icteric and not injected. Cornea within normal limits. Periorbital areas with no swelling, redness, or edema. ENT: Nares patent. No nasal discharge, no septal abnormalities noted. Tympanic membranes are normal and external auditory canals are clear. Oropharynx with no redness, swelling, or masses, exudates, or evidence of obstruction, uvula midline. Mucous membranes moist. Neck: Trachea midline, no thyromegaly or masses palpated, and no cervical lymphadenopathy. Supple, full range of motion without nuchal rigidity, or vertebral point tenderness. No Meningismus. Cardiovascular: Regular rate and rhythm with a normal S1 and S2. No gallops, murmurs, or rubs. Normal PMI, no JVD. No pulse deficits. Respiratory: Lungs have equal breath sounds bilaterally, clear to auscultation and percussion. No rales, rhonchi or wheezes noted. No increased work of breathing, no retractions or nasal flaring. Back: No spinal tenderness. No costovertebral tenderness. Full range of motion. Skin: Warm, dry with normal turgor. Normal color with no rashes, no lesions, and no evidence of cellulitis. MS/ Extremity: Pulses equal, no cyanosis. Neurovascular intact. Full, normal range of motion. Neuro: Awake and alert, GCS 15, oriented to person, place, time, and situation. Cranial nerves II-XII grossly intact. Motor strength 5/5 in all extremities. Sensory grossly intact. Cerebellar exam normal. Normal gait. 09:43 Abdomen/GI: Inspection: scar(s), are noted in the midline abdominal , Bowel sounds: active, all quadrants, Palpation: soft, in all quadrants, moderate abdominal tenderness, in the anterior aspect of right lateral abdomen and right lower quadrant, mass, is not appreciated, rebound tenderness, is not appreciated, voluntary guarding, is not appreciated, involuntary guarding, is not appreciated, no appreciated organomegaly, Indicators: McBurney's point is not tender, Awan's sign is negative, Rovsing's sign is negative, Liver: tenderness, is not appreciated. Vital Signs: 09:08 BP 154 / 118; Pulse 72; Resp 18; Temp 98.1; Pulse Ox 100% on R/A; Weight 97.52 kg; hj Height 6 ft. 1 in. (185.42 cm); Pain 10/10; 10:30 BP 128 / 87; Pulse 81; Resp 18; Pulse Ox 100% on R/A; hj 11:29 BP 121 / 97; Pulse 81; Resp 18; Pulse Ox 97% on R/A; hj 13:12 BP 125 / 89; Pulse 79; Resp 18; Pulse Ox 100% on R/A; hj 13:55 BP 132 / 91; Pulse 73; Resp 18; Pulse Ox 100% on R/A; hj 14:59 BP 128 / 85; Pulse 74; Resp 18; Pulse Ox 100% on R/A; hj 09:08 Body Mass Index 28.37 (97.52 kg, 185.42 cm) hj MDM: 09:08 Patient medically screened. [facility] 14:08 Data reviewed: vital signs, nurses notes, lab test result(s), radiologic studies, CT [facility] scan. Data interpreted: Pulse oximetry: on room air is 100 %. Interpretation: normal. Counseling: I had a detailed discussion with the patient and/or guardian regarding: the historical points, exam findings, and any diagnostic results supporting the discharge/admit diagnosis, lab results, radiology results, the need to transfer to another facility, [facility] does not immediately have the required specialist. ED course: Case discussed with HANNAH and Dr. Ybarra at [facility] who both accepted patient . 12/03 09:09 Order name: Basic Metabolic Panel [facility] 12/03 09:09 Order name: CBC with Diff 8 12/03 09:09 Order name: Creatinine for Radiology; Complete Time: 09:47 [facility] 12/03 09:09 Order name: Hepatic Function; Complete Time: 10:38 jr8 12/03 09:09 Order name: Lipase; Complete Time: 10:38 8 12/03 09:10 Order name: Basic Metabolic Panel; Complete Time: 10:38 [facility] 12/03 09:10 Order name: CBC with Automated Diff; Complete Time: 10:38 [facility] 12/03 09:41 Order name: CBC Smear Scan; Complete Time: 10:38 [facility] 12/03 10:39 Order name: CT Abd/Pelvis - IV Contrast Only; Complete Time: 12:19 [facility] 12/03 09:09 Order name: IV Saline Lock; Complete Time: 09:24 jr8 12/03 09:09 Order name: Labs collected and sent; Complete Time: :24 jr8 Administered Medications: 09:23 Drug: Zofran 4 mg Route: IVP; Site: right antecubital; hj 11:55 Follow up: Response: No adverse reaction hj 09:23 Drug: morphine 4 mg Route: IVP; Site: right antecubital; hj 11:55 Follow up: Response: No adverse reaction hj 12:21 Drug: ProTONIX 40 mg Route: IVP; Site: right antecubital; hj 12:26 Follow up: Response: No adverse reaction hj 13:54 Drug: morphine 4 mg Route: IVP; Site: right antecubital; hj 13:59 Follow up: Response: Pain is decreased hj 13:54 Drug: Zofran 4 mg Route: IVP; Site: right antecubital; hj 13:58 Follow up: Response: No adverse reaction hj 13:54 Drug: NS 0.9% 1000 ml Route: IV; Rate: 75 ml/hr; Site: right antecubital; hj 14:42 Follow up: IV Status: Infusion continued upon transfer hj 14:17 Drug: ProTONIX 8 mg/hr Route: IV; Rate: 25 ml/hr; Site: right antecubital; hj 14:17 Follow up: IV Status: Infusion continued upon transfer hj 14:43 Follow up: IV Status: Infusion continued upon transfer hj Disposition: 12/04 10:05 Co-signature as Attending Physician, Shahab DEL VALLE I agree with the assessment and ish plan of care. Disposition: 12/03/18 14:[address] [facility]. Diagnosis is Gastroduodenitis, unspecified - Cannot r/o abscess or perforation . - Reason for transfer: Higher level of care. - Accepting physician is Dr. Ybarra. - Condition is Stable. - Problem is new. - Symptoms have improved. Signatures: Dispatcher [employer] Shahab Aguilar MD MD cha Roszak, Josh, PA PA jr8 Giancarlo Shepard RN RN hj Corrections: (The following items were deleted from the chart) 12/03 15:52 14:10 12/03/2018 14:[address] [facility]. Diagnosis is hj Gastroduodenitis, unspecified - Cannot r/o abscess or perforation . Reason for transfer: Higher level of care. Accepting physician is Dr. Ybarra. Condition is Stable. Problem is new. Symptoms have improved. jr8
[2018-12-03] MEDS ORDERED: PANTOPRAZOLE INJ 80 MG in NA CHLORIDE 0.9% 250 ML IV ONE (14:15)
== END 2018-12-03 15:52 | disposition short-term general hospital (02) ==
LOC: ER 09:04
DX: K29.90 Gastroduodenitis, unspecified, without bleeding (principal); K21.9 Gastro-esophageal reflux disease without esophagitis
CPT/HCPCS: 36415; 74177; 80048; 80076; 83690; 85025; 96361; 96374; 96375; 99285; C9113; J2405; J7030

== ENCOUNTER 2019-05-23 11:26 | Emergency (ER) | payer SELFPAY ==
--- OUTSIDE RECORDS SUMMARY | 2019-05-23 11:35 | XMS REPORT ---
:1975 [facility] [place] [address] Care Team Providers Name Role Phone APARNAKUSHAL Lacy Unavailable Unavailable Problems This patient has no known problems. Allergies, Adverse Reactions, Alerts This patient has no known allergies or adverse reactions. Medications This patient has no known medications. Results Test Description Test Time Test Comments Text Results Atomic Results Result Comments LIPASE 2018-12-07 07:30:00 Test Item Value Reference Range Comments LIPASE (BEAKER) (test fnuh=260) 238 U/L 878 TISSUE [id number] 08:54:00Surgical Pathology Report Case: [id number] Authorizing Provider: Stefanie Maya MD Collected: 12/05/2018 0933 Ordering Location: [address] Received: 12/05/2018 1350 Service Pathologist: Christy Perdomo MD Specimen: Biopsy, Gastric, Gastric/antrum biopsy A. STOMACH, ANTRUM, BIOPSY: - BODY/TRANSITIONAL MUCOSA WITH NO SIGNIFICANT DIAGNOSTIC ABNORMALITY - NEGATIVE FOR HELICOBACTER PYLORI ORGANISMS BY WARTHIN STARRY STAIN - NEGATIVE FOR INTESTINAL METAPLASIA, DYSPLASIA, MALIGNANCY Signing Pathologist Direct Phone Line: [phone] signed by Christy Perdomo MD on 12/06 at 8:54 [id number], presence of unspecified bleedingGastric antrum biopsyThe specimen consists of three pieces of esposito tissue measuring 2 mm in greatest dimensioneach, submitted entirely as A1. TW/plPerformed.The interpretation of this case included the use of immunohistochemistry or special stains.Control Slides Examined: In-house known positive controls wereevaluated along with the test tissue. These control slides run alongside of the patients sample show appropriate staining. Internal positive and negative controls when available are evaluated Immunohistochemistry technical testing was performed at [facility], Pathology Laboratory where it was developed and its performance characteristics were determined. It has not been clearedor approved by the U.S. Food and Drug Administration. The FDA has determined that such clearance or approval is not necessary. The test is used for clinical purposes. It should not be regarded as investigational or for research. This laboratory is certified under the Clinical Laboratory Improvement Amendments of 1988 (CLIA-88) as qualified to perform high complexity clinical laboratory testing.LIPID [id number] 06:14:00 Test Item Value Reference Range Comments TRIGLYCERIDES (BEAKER) (test tkia=118) 106 mg/dL CHOLESTEROL (BEAKER) (test vviq=634) 102 mg/dL HDL CHOLESTEROL (BEAKER) (test gpca=265) 14 mg/dL LDL CHOLESTEROL CALCULATED (BEAKER) (test 67 mg/dL yknr=394) Triglyceride Reference Range: Low Risk <150 Borderline 150- 199 High Risk 200-499 Very High Risk >=500Cholesterol Reference Range: Low Risk <200 Borderline 200-239 High Risk > 240HDL Cholesterol Reference Range: Low Risk >=60 High Risk <40LDL Cholesterol Reference Range: Optimal <100 Near Optimal 100-129 Borderline 130-159 High 160-189 Very High >=190BASIC METABOLIC [id number] 06:14:00 Test Item Value Reference Range Comments SODIUM (BEAKER) (test 131 meq/L 136-145 rqqs=532) POTASSIUM (BEAKER) (test 3.9 meq/L 3.5-5.1 wbzu=395) CHLORIDE (BEAKER) (test 103 meq/L 98-107 fmji=782) CO2 (BEAKER) (test 19 meq/L 22-29 fjyq=828) BLOOD UREA NITROGEN 7 mg/dL 7-21 (BEAKER) (test jtte=395) CREATININE (BEAKER) (test 0.62 mg/dL 0.57-1.25 narf=443) GLUCOSE RANDOM (BEAKER) 78 mg/dL 70-105 (test sdpt=085) CALCIUM (BEAKER) (test 8.4 mg/dL 8.4-10.2 kvuc=715) EGFR (BEAKER) (test 142 mL/min/1.73 sq m ESTIMATED GFR IS NOT pmef=0070) ACCURATE CREATININE CLEARANCE IN PREDICTING GLOMERULAR FILTRATION RATE. ESTIMATED GFR IS NOT APPLICABLE FOR DIALYSIS PATIENTS. HEPATIC FUNCTION [id number] 06:14:00 Test Item Value Reference Range Comments TOTAL PROTEIN (BEAKER) (test ccfu=382) 6.5 gm/dL 6.0-8.3 ALBUMIN (BEAKER) (test lhdr=5517) 2.9 g/dL 3.5-5.0 BILIRUBIN TOTAL (BEAKER) (test bzpw=282) 0.3 mg/dL 0.2-1.2 BILIRUBIN DIRECT (BEAKER) (test tjzs=960) 0.2 mg/dL 0.1-0.5 ALKALINE PHOSPHATASE (BEAKER) (test prpy=660) 54 U/L 40-150 AST (SGOT) (BEAKER) (test nrpv=266) 15 U/L 5-34 ALT (SGPT) (BEAKER) (test osef=419) 8 U/L 6-55 CBC W/PLT COUNT & AUTO [id number] 05:29:00 Test Item Value Reference Range Comments WHITE BLOOD CELL COUNT (BEAKER) (test yktf=818) 4.6 K/ L 3.5-10.5 RED BLOOD CELL COUNT (BEAKER) (test nflx=289) 4.07 M/ L 4.63-6.08 HEMOGLOBIN (BEAKER) (test amhg=310) 12.5 GM/DL 13.7-17.5 HEMATOCRIT (BEAKER) (test kluw=378) 38.6 % 40.1-51.0 MEAN CORPUSCULAR VOLUME (BEAKER) (test gvli=711) 94.8 fL 79.0-92.2 MEAN CORPUSCULAR HEMOGLOBIN (BEAKER) (test 30.7 pg 25.7-32.2 epjc=307) MEAN CORPUSCULAR HEMOGLOBIN CONC (BEAKER) (test 32.4 GM/DL 32.3-36.5 blgz=039) RED CELL DISTRIBUTION WIDTH (BEAKER) (test 14.2 % 11.6-14.4 rsew=253) PLATELET COUNT (BEAKER) (test gaip=174) 174 K/CU MM 150-450 MEAN PLATELET VOLUME (BEAKER) (test sghp=568) 11.9 fL 9.4-12.4 NUCLEATED RED BLOOD CELLS (BEAKER) (test 0 /100 WBC 0-0 zofy=914) NEUTROPHILS RELATIVE PERCENT (BEAKER) (test 69 % wlbu=146) LYMPHOCYTES RELATIVE PERCENT (BEAKER) (test 20 % scjw=454) MONOCYTES RELATIVE PERCENT (BEAKER) (test 11 % igew=827) EOSINOPHILS RELATIVE PERCENT (BEAKER) (test 1 % oqmb=039) BASOPHILS RELATIVE PERCENT (BEAKER) (test 0 % jzhi=240) NEUTROPHILS ABSOLUTE COUNT (BEAKER) (test 3.13 K/ L 1.78-5.38 pesp=145) LYMPHOCYTES ABSOLUTE COUNT (BEAKER) (test 0.89 K/ L 1.32-3.57 xvlu=271) MONOCYTES ABSOLUTE COUNT (BEAKER) (test 0.48 K/ L 0.30-0.82 veqy=710) EOSINOPHILS ABSOLUTE COUNT (BEAKER) (test 0.03 K/ L 0.04-0.54 weaw=200) BASOPHILS ABSOLUTE COUNT (BEAKER) (test 0.02 K/ L 0.01-0.08 zkiy=770) IMMATURE GRANULOCYTES-RELATIVE PERCENT (BEAKER) 0 % 0-1 (test ghes=8620) LIPID [id number] 06:19:00 Test Item Value Reference Range Comments TRIGLYCERIDES (BEAKER) (test piqb=268) 95 mg/dL CHOLESTEROL (BEAKER) (test krcl=029) 98 mg/dL HDL CHOLESTEROL (BEAKER) (test xhmy=522) 14 mg/dL LDL CHOLESTEROL CALCULATED (BEAKER) (test tcec=810) 65 mg/dL Triglyceride Reference Range: Low Risk <150 Borderline 150- 199 High Risk 200-499 Very High Risk >=500Cholesterol Reference Range: Low Risk <200 Borderline 200-239 High Risk > 240HDL Cholesterol Reference Range: Low Risk >=60 High Risk <40LDL Cholesterol Reference Range: Optimal <100 Near Optimal 100-129 Borderline 130-159 High 160-189 Very High >=190BASIC METABOLIC [id number] 06:19:00 Test Item Value Reference Range Comments SODIUM (BEAKER) (test 131 meq/L 136-145 xoob=779) POTASSIUM (BEAKER) (test 4.0 meq/L 3.5-5.1 lgmi=348) CHLORIDE (BEAKER) (test 100 meq/L 98-107 bubb=173) CO2 (BEAKER) (test 23 meq/L 22-29 gtbt=698) BLOOD UREA NITROGEN 10 mg/dL 7-21 (BEAKER) (test uhne=734) CREATININE (BEAKER) (test 0.61 mg/dL 0.57-1.25 mlmy=318) GLUCOSE RANDOM (BEAKER) 86 mg/dL 70-105 (test yctk=237) CALCIUM (BEAKER) (test 8.6 mg/dL 8.4-10.2 eiae=042) EGFR (BEAKER) (test 144 mL/min/1.73 sq m ESTIMATED GFR IS NOT rydr=2517) ACCURATE CREATININE CLEARANCE IN PREDICTING GLOMERULAR FILTRATION RATE. ESTIMATED GFR IS NOT APPLICABLE FOR DIALYSIS PATIENTS. HEPATIC FUNCTION [id number] 06:19:00 Test Item Value Reference Range Comments TOTAL PROTEIN (BEAKER) (test ebjg=458) 6.6 gm/dL 6.0-8.3 ALBUMIN (BEAKER) (test ibbo=1505) 3.0 g/dL 3.5-5.0 BILIRUBIN TOTAL (BEAKER) (test rvww=663) 0.5 mg/dL 0.2-1.2 BILIRUBIN DIRECT (BEAKER) (test yupu=685) 0.4 mg/dL 0.1-0.5 ALKALINE PHOSPHATASE (BEAKER) (test keuq=547) 51 U/L 40-150 AST (SGOT) (BEAKER) (test cxli=569) 10 U/L 5-34 ALT (SGPT) (BEAKER) (test patb=842) 7 U/L 6-55 CBC W/PLT COUNT & AUTO [id number] 05:47:00 Test Item Value Reference Range Comments WHITE BLOOD CELL COUNT (BEAKER) (test dscg=574) 6.1 K/ L 3.5-10.5 RED BLOOD CELL COUNT (BEAKER) (test cwnh=382) 4.05 M/ L 4.63-6.08 HEMOGLOBIN (BEAKER) (test zcbw=025) 12.3 GM/DL 13.7-17.5 HEMATOCRIT (BEAKER) (test fuxq=557) 37.9 % 40.1-51.0 MEAN CORPUSCULAR VOLUME (BEAKER) (test xqlt=898) 93.6 fL 79.0-92.2 MEAN CORPUSCULAR HEMOGLOBIN (BEAKER) (test 30.4 pg 25.7-32.2 cowv=324) MEAN CORPUSCULAR HEMOGLOBIN CONC (BEAKER) (test 32.5 GM/DL 32.3-36.5 xhzz=647) RED CELL DISTRIBUTION WIDTH (BEAKER) (test 14.5 % 11.6-14.4 qwbv=281) PLATELET COUNT (BEAKER) (test ozkz=578) 162 K/CU MM 150-450 MEAN PLATELET VOLUME (BEAKER) (test kyau=414) 11.9 fL 9.4-12.4 NUCLEATED RED BLOOD CELLS (BEAKER) (test 0 /100 WBC 0-0 iptl=248) NEUTROPHILS RELATIVE PERCENT (BEAKER) (test 73 % tmiv=915) LYMPHOCYTES RELATIVE PERCENT (BEAKER) (test 17 % fken=552) MONOCYTES RELATIVE PERCENT (BEAKER) (test 8 % bxdw=825) EOSINOPHILS RELATIVE PERCENT (BEAKER) (test 1 % ybmq=817) BASOPHILS RELATIVE PERCENT (BEAKER) (test 1 % nktq=523) NEUTROPHILS ABSOLUTE COUNT (BEAKER) (test 4.40 K/ L 1.78-5.38 nwzn=104) LYMPHOCYTES ABSOLUTE COUNT (BEAKER) (test 1.05 K/ L 1.32-3.57 hkxn=059) MONOCYTES ABSOLUTE COUNT (BEAKER) (test 0.51 K/ L 0.30-0.82 ztqz=211) EOSINOPHILS ABSOLUTE COUNT (BEAKER) (test 0.03 K/ L 0.04-0.54 fzsz=104) BASOPHILS ABSOLUTE COUNT (BEAKER) (test 0.03 K/ L 0.01-0.08 hpft=282) IMMATURE GRANULOCYTES-RELATIVE PERCENT (BEAKER) 1 % 0-1 (test frih=8503) U/S, ABDOMINAL, [id number] 22:07:00Abdomen limited area? Add comment if clarification is needed.->Right upper quadrantReason for exam:->Elevated Lipase - evaluate for gallstonesFINAL REPORT INDICATION: Elevated lipase. Evaluate for gallstones. TECHNIQUE:Abdominal ultrasound limited (right upper quadrant). COMPARISON: None. FINDINGS:Pancreas not visualized because of bowel gas.No gallstones demonstrated.No gallbladder wall thickening or fluid around the gallbladder.Transverse diameter of the gallbladder is 2.5 cm.Common bile duct normal in diameter measuring 0.5 cm.Liver echotexture and contour are unremarkable.Main portal vein measures 1.5 cm in diameter.No ascites.Right kidney measures 12.0 x 5.8 x 5.4 cm.No right hydronephrosis or renal mass demonstrated.Visualized part of the IVC unremarkable.Abdominal aorta not visualized because of bowel gas.IMPRESSION: Pancreas not visualized because of bowel gas.No cholelithiasis. Signed: Davey MartiniMDReport Verified Date/Time: 12/04/2018 22:07:39 Reading Location[facility] C013W Consult Reading Room HEMOGLOBIN [id number] 09:50:00 Test Item Value Reference Range Comments HEMOGLOBIN A1C (BEAKER) (test gdzw=261) 5.0 % 4.3-6.1 LIPID [id number] 06:14:00 Test Item Value Reference Range Comments TRIGLYCERIDES (BEAKER) (test unsn=420) 109 mg/dL CHOLESTEROL (BEAKER) (test taor=165) 107 mg/dL HDL CHOLESTEROL (BEAKER) (test rwmh=511) 17 mg/dL LDL CHOLESTEROL CALCULATED (BEAKER) (test 68 mg/dL putu=226) Triglyceride Reference Range: Low Risk <150 Borderline 150- 199 High Risk 200-499 Very High Risk >=500Cholesterol Reference Range: Low Risk <200 Borderline 200-239 High Risk > 240HDL Cholesterol Reference Range: Low Risk >=60 High Risk <40LDL Cholesterol Reference Range: Optimal <100 Near Optimal 100-129 Borderline 130-159 High 160-189 Very High >=190BASIC METABOLIC [id number] 06:14:00 Test Item Value Reference Range Comments SODIUM (BEAKER) (test 131 meq/L 136-145 dchh=604) POTASSIUM (BEAKER) (test 4.1 meq/L 3.5-5.1 eojj=443) CHLORIDE (BEAKER) (test 99 meq/L 98-107 wrwj=667) CO2 (BEAKER) (test 21 meq/L 22-29 knxd=734) BLOOD UREA NITROGEN 15 mg/dL 7-21 (BEAKER) (test fxbz=247) CREATININE (BEAKER) (test 0.65 mg/dL 0.57-1.25 ndbu=407) GLUCOSE RANDOM (BEAKER) 76 mg/dL 70-105 (test qbky=538) CALCIUM (BEAKER) (test 8.9 mg/dL 8.4-10.2 fybv=645) EGFR (BEAKER) (test 134 mL/min/1.73 sq m ESTIMATED GFR IS NOT fwve=3223) ACCURATE CREATININE CLEARANCE IN PREDICTING GLOMERULAR FILTRATION RATE. ESTIMATED GFR IS NOT APPLICABLE FOR DIALYSIS PATIENTS. HEPATIC FUNCTION [id number] 06:14:00 Test Item Value Reference Range Comments TOTAL PROTEIN (BEAKER) (test rptk=835) 7.3 gm/dL 6.0-8.3 ALBUMIN (BEAKER) (test ntvr=5923) 3.4 g/dL 3.5-5.0 BILIRUBIN TOTAL (BEAKER) (test rcbx=996) 0.6 mg/dL 0.2-1.2 BILIRUBIN DIRECT (BEAKER) (test ejhz=044) 0.4 mg/dL 0.1-0.5 ALKALINE PHOSPHATASE (BEAKER) (test evpr=951) 63 U/L 40-150 AST (SGOT) (BEAKER) (test csjh=026) 11 U/L 5-34 ALT (SGPT) (BEAKER) (test nvmq=219) 12 U/L 6-55 [id number] 06:14:00 Test Item Value Reference Range Comments LIPASE (BEAKER) (test sjff=593) 279 U/L 8-78 CBC W/PLT COUNT & AUTO [id number] 05:59:00 Test Item Value Reference Range Comments WHITE BLOOD CELL COUNT (BEAKER) (test ovlz=512) 10.0 K/ L 3.5-10.5 RED BLOOD CELL COUNT (BEAKER) (test xefo=798) 4.48 M/ L 4.63-6.08 HEMOGLOBIN (BEAKER) (test aqpp=330) 13.8 GM/DL 13.7-17.5 HEMATOCRIT (BEAKER) (test birs=667) 41.8 % 40.1-51.0 MEAN CORPUSCULAR VOLUME (BEAKER) (test bkve=589) 93.3 fL 79.0-92.2 MEAN CORPUSCULAR HEMOGLOBIN (BEAKER) (test 30.8 pg 25.7-32.2 plba=813) MEAN CORPUSCULAR HEMOGLOBIN CONC (BEAKER) (test 33.0 GM/DL 32.3-36.5 vmrx=672) RED CELL DISTRIBUTION WIDTH (BEAKER) (test 14.7 % 11.6-14.4 xjfr=922) PLATELET COUNT (BEAKER) (test zfnc=980) 207 K/CU MM 150-450 MEAN PLATELET VOLUME (BEAKER) (test zczq=602) 12.5 fL 9.4-12.4 NUCLEATED RED BLOOD CELLS (BEAKER) (test 0 /100 WBC 0-0 hdlc=097) NEUTROPHILS RELATIVE PERCENT (BEAKER) (test 79 % gnmg=371) LYMPHOCYTES RELATIVE PERCENT (BEAKER) (test 14 % xwoi=906) MONOCYTES RELATIVE PERCENT (BEAKER) (test 7 % tctl=150) EOSINOPHILS RELATIVE PERCENT (BEAKER) (test 0 % owup=794) BASOPHILS RELATIVE PERCENT (BEAKER) (test 0 % mfrc=746) NEUTROPHILS ABSOLUTE COUNT (BEAKER) (test 7.84 K/ L 1.78-5.38 wfgb=950) LYMPHOCYTES ABSOLUTE COUNT (BEAKER) (test 1.36 K/ L 1.32-3.57 hadv=392) MONOCYTES ABSOLUTE COUNT (BEAKER) (test 0.66 K/ L 0.30-0.82 damd=161) EOSINOPHILS ABSOLUTE COUNT (BEAKER) (test 0.04 K/ L 0.04-0.54 dyzl=024) BASOPHILS ABSOLUTE COUNT (BEAKER) (test 0.04 K/ L 0.01-0.08 ssnj=709) IMMATURE GRANULOCYTES-RELATIVE PERCENT (BEAKER) 0 % 0-1 (test mfit=1174)
[2019-05-23 12:17] LABS: Absolute Lymphocytes (CBC) 0.7 K/uL (0.7-4.9); Basophils % 0.6 % (0-1.3); Hematocrit 38.4 % (39.6-49.0); Lymphocytes % 21.8 % (15.3-44.8); RBC Red Blood Cell Count 4.39 M/uL (4.33-5.43)
--- NOTE | 2019-05-23 12:30 | RAD REPORT ---
EXAM DESCRIPTION: Kajalt Single View05/23/2019 12:24 pm CLINICAL HISTORY: Swelling COMPARISON: 2017 FINDINGS: The lungs appear clear of acute infiltrate. The heart is normal size IMPRESSION: No acute abnormalities displayed
[2019-05-23 12:35] LABS: BUN Blood Urea Nitrogen 10 mg/dL (7-18); Bicarbonate 32 mmol/L (21-32); Glucose Level 139 mg/dL (74-106); NT PRO-BNP 70 pg/mL (<125); Sodium Level 139 mmol/L (136-145)
--- NOTE | 2019-05-23 12:49 | RAD REPORT ---
EXAM DESCRIPTION: US - Extrem Venous W Compress Jg - 05/23/2019 12:43 pm CLINICAL HISTORY: SWELLING Bilateral leg edema and swelling. COMPARISON: No comparisons TECHNIQUE: Real-time sonographic interrogation of the left and right lower extremity deep venous sys tems was performed. FINDINGS: Normal compressibility, flow augmentation, phasic flow and spontaneous flow is identified in both the left and right lower extremity deep venous systems. IMPRESSION: No sonographic evidence of left or right lower extremity deep venous thrombosis.
--- NOTE | 2019-05-23 13:01 | ER ---
[facility]: Kevin Chaudhary Age: 43 yrs Sex: Male : 1975 Arrival Date: 05/23/2019 Time: 11:28 Bed 24 Private MD: Diagnosis: Edema, not elsewhere classified-bilateral feet Presentation: 05/23 11:35 Presenting complaint: Bilateral foot swelling x 3 days. Transition of care: patient was hb not received from another setting of care. Onset of symptoms was May 21, 2019. Risk Assessment: Do you want to hurt yourself or someone else? Patient reports no desire to harm self or others. Initial Sepsis Screen: Does the patient meet any 2 criteria? No. Patient's initial sepsis screen is negative. Does the patient have a suspected source of infection? No. Patient's initial sepsis screen is negative. Care prior to arrival: None. 11:35 Method Of Arrival: Ambulatory hb 11:35 Acuity: NIHARIKA 4 hb 12:11 Acuity: NIHARIKA 3 iw Historical: - Allergies: 11:35 No Known Allergies; hb - Home Meds: 11:35 Nexium 40 mg Oral cpDR 1 cap once daily [Active]; hb - PMHx: 11:35 Diverticulitis; GERD; hb - PSHx: 11:35 Hernia repair; colostomy reversal; hb - Immunization history:: Adult Immunizations up to date. - Social history:: Smoking status: Patient uses tobacco products, smokes one pack cigarettes per day. - Ebola Screening: : No symptoms or risks identified at this time. Screenin:07 Abuse screen: Denies threats or abuse. Denies injuries from another. Nutritional mg2 screening: No deficits noted. Tuberculosis screening: No symptoms or risk factors identified. Fall Risk IV access (20 points). Assessment: 12:07 General: Appears in no apparent distress. comfortable, Behavior is calm, cooperative. mg2 Pain: Denies pain. Neuro: Level of Consciousness is awake, alert, obeys commands, Oriented to person, place, time, situation. Cardiovascular: Capillary refill < 3 seconds Patient's skin is warm and dry. Respiratory: Airway is patent Respiratory effort is even, unlabored, Respiratory pattern is regular, symmetrical. GI: No signs and/or symptoms were reported involving the gastrointestinal system. : No signs and/or symptoms were reported regarding the genitourinary system. EENT: No signs and/or symptoms were reported regarding the EENT system. Derm: Skin is intact, is healthy with good turgor, Skin is pink, warm \T\ dry. normal. Musculoskeletal: Circulation, motion, and sensation intact. Capillary refill < 3 seconds, Swelling present in right foot and left foot. 13:07 Reassessment: Patient appears in no apparent distress at this time. No changes from mg2 previously documented assessment. Vital Signs: 11:35 BP 134 / 98; Pulse 88; Resp 16; Temp 97.9; Pulse Ox 100% on R/A; Weight 79.38 kg; hb Height 6 ft. (182.88 cm); Pain 2/10; 12:45 BP 125 / 84; Pulse 80; Resp 18; Temp 98(O); Pulse Ox 100% on R/A; Pain 0/10; mg2 11:35 Body Mass Index 23.73 (79.38 kg, 182.88 cm) hb ED Course: 11:28 Patient arrived in ED. mr 11:35 Arm band placed on. hb 11:36 Triage completed. hb 11:48 [facility] kb 11:48 Fidencio Loco MD is Attending Physician. kb 11:51 Anuj Maldonado RN is Primary Nurse. mg2 12:04 Inserted saline lock: 20 gauge in right antecubital area, using aseptic technique. mg2 Blood collected. 12:08 Patient has correct armband on for positive identification. Pulse ox on. NIBP on. Door mg2 closed. Warm blanket given. Pillow given. 12:08 No provider procedures requiring assistance completed. mg2 12:25 XRAY Chest (1 view) In Process Unspecified. EDMS 12:47 US Extremity Venous W Compression Jg In Process Unspecified. EDMS 13:08 IV discontinued, intact, bleeding controlled, No redness/swelling at site. Pressure mg2 dressing applied. Administered Medications: No medications were administered Outcome: 12:59 Discharge ordered by . kb 13:08 Discharged to home ambulatory. mg2 13:08 Condition: stable 13:08 Discharge instructions given to patient, Instructed on discharge instructions, follow up and referral plans. Demonstrated understanding of instructions. 13:09 Patient left the ED. mg2 Signatures: Dispatcher [employer] EDNC Sherrie Lucero FNP-C FNP-Moriah Gloria Villanueva Arlene Tobias, RN RN iw Charo Garcia, TRAY RN hb Anuj Maldonado RN RN mg2 Corrections: (The following items were deleted from the chart) 11:36 11:35 Acuity: NIHARIKA 3 hb hb
--- NOTE | 2019-05-23 13:01 | EDPHYS ---
Physician Documentation [facility] Name: Kevin Chaudhary Age: 43 yrs Sex: Male : 1975 Arrival Date: 05/23/2019 Time: 11:28 Bed 24 Private MD: ED Physician Fidencio Loco HPI: 05/23 12:57 This 43 yrs old Male presents to ER via Ambulatory with complaints of Leg kb Swelling. 12:57 The patient presents with swelling. The complaints affect the left foot, right foot. kb Context: resulted from an unknown cause, the patient can fully bear weight, the patient is able to ambulate. 12:58 Onset: The symptoms/episode began/occurred 3 day(s) ago. Modifying factors: The kb symptoms are alleviated by nothing, the symptoms are aggravated by nothing. Associated signs and symptoms: Pertinent positives: swelling, Pertinent negatives: calf tenderness, fever, nausea, numbness, rash, tingling, vomiting, warmth, weakness. Severity of symptoms: At their worst the symptoms were moderate, in the emergency department the symptoms are unchanged. The patient has not experienced similar symptoms in the past. The patient has not recently seen a physician. 12:58 Pt reports bilateral feet swelling that started 3 days ago. Denies injury or pain. kb Reports his brother has a history of clots so he wanted to come make sure he didn't have one. . Historical: - Allergies: 11:35 No Known Allergies; hb - Home Meds: 11:35 Nexium 40 mg Oral cpDR 1 cap once daily [Active]; hb - PMHx: 11:35 Diverticulitis; GERD; hb - PSHx: 11:35 Hernia repair; colostomy reversal; hb - Immunization history:: Adult Immunizations up to date. - Social history:: Smoking status: Patient uses tobacco products, smokes one pack cigarettes per day. - Ebola Screening: : No symptoms or risks identified at this time. ROS: 12:56 Constitutional: Negative for fever, chills, and weight loss, Neck: Negative for injury, kb pain, and swelling, Cardiovascular: Negative for chest pain, palpitations, and edema, Respiratory: Negative for shortness of breath, cough, wheezing, and pleuritic chest pain, Abdomen/GI: Negative for abdominal pain, nausea, vomiting, diarrhea, and constipation, Back: Negative for injury and pain, : Negative for injury, bleeding, discharge, and swelling, Skin: Negative for injury, rash, and discoloration, Neuro: Negative for headache, weakness, numbness, tingling, and seizure. 12:56 MS/extremity: Positive for swelling, of the right foot and left foot. Exam: 12:56 Constitutional: This is a well developed, well nourished patient who is awake, alert, kb and in no acute distress. Head/Face: Normocephalic, atraumatic. ENT: Nares patent. No nasal discharge, no septal abnormalities noted. Tympanic membranes are normal and external auditory canals are clear. Oropharynx with no redness, swelling, or masses, exudates, or evidence of obstruction, uvula midline. Mucous membranes moist. Neck: Trachea midline, no thyromegaly or masses palpated, and no cervical lymphadenopathy. Supple, full range of motion without nuchal rigidity, or vertebral point tenderness. No Meningismus. Chest/axilla: Normal chest wall appearance and motion. Nontender with no deformity. No lesions are appreciated. Cardiovascular: Regular rate and rhythm with a normal S1 and S2. No gallops, murmurs, or rubs. Normal PMI, no JVD. No pulse deficits. Respiratory: Lungs have equal breath sounds bilaterally, clear to auscultation and percussion. No rales, rhonchi or wheezes noted. No increased work of breathing, no retractions or nasal flaring. Abdomen/GI: Soft, non-tender, with normal bowel sounds. No distension or tympany. No guarding or rebound. No evidence of tenderness throughout. Skin: Warm, dry with normal turgor. Normal color with no rashes, no lesions, and no evidence of cellulitis. Neuro: Awake and alert, GCS 15, oriented to person, place, time, and situation. Cranial nerves II-XII grossly intact. Motor strength 5/5 in all extremities. Sensory grossly intact. Cerebellar exam normal. Normal gait. 12:56 Musculoskeletal/extremity: Extremities: grossly normal except: noted in the left foot and right foot: swelling, ROM: intact in all extremities, Circulation is intact in all extremities. Sensation intact. Weight bearing: able to fully bear weight. Vital Signs: 11:35 BP 134 / 98; Pulse 88; Resp 16; Temp 97.9; Pulse Ox 100% on R/A; Weight 79.38 kg; hb Height 6 ft. (182.88 cm); Pain 2/10; 12:45 BP 125 / 84; Pulse 80; Resp 18; Temp 98(O); Pulse Ox 100% on R/A; Pain 0/10; mg2 11:35 Body Mass Index 23.73 (79.38 kg, 182.88 cm) hb MDM: 11:48 Patient medically screened. kb 12:57 Data reviewed: vital signs, nurses notes. Data interpreted: Pulse oximetry: on room air kb is 100 %. Interpretation: normal. 12:58 Counseling: I had a detailed discussion with the patient and/or guardian regarding: the kb historical points, exam findings, and any diagnostic results supporting the discharge/admit diagnosis, lab results, radiology results, the need for outpatient follow up, a family practitioner, to return to the emergency department if symptoms worsen or persist or if there are any questions or concerns that arise at home. 05/23 11:58 Order name: Basic Metabolic Panel; Complete Time: 12:40 kb 05/23 11:58 Order name: CBC with Diff; Complete Time: 12:34 kb 05/23 11:58 Order name: US Extremity Venous W Compression Jg; Complete Time: 12:54 kb 05/23 11:58 Order name: NT PRO-BNP; Complete Time: 12:40 kb 05/23 11:58 Order name: XRAY Chest (1 view); Complete Time: 12:34 kb 05/23 11:58 Order name: EKG; Complete Time: 12:00 kb 05/23 11:58 Order name: EKG - Nurse/Tech; Complete Time: 12:12 kb 05/23 11:58 Order name: IV Saline Lock; Complete Time: 12:04 kb 05/23 11:58 Order name: Labs collected and sent; Complete Time: 12:04 kb Administered Medications: No medications were administered Disposition: 05/24 07:14 Co-signature as Attending Physician, Fidencio Loco MD I agree with the assessment and kdr plan of care. Disposition: 05/23/19 12:59 Discharged to Home. Impression: Edema, not elsewhere classified - bilateral feet. - Condition is Stable. - Discharge Instructions: Peripheral Edema. - Medication Reconciliation Form, Thank You Letter, Antibiotic Education, Prescription Opioid Use form. - Follow up: Emergency Department; When: As needed; Reason: Worsening of condition. Follow up: Private Physician; When: 2 - 3 days; Reason: Recheck today's complaints, Continuance of care, Re-evaluation by your physician. Signatures: Dispatcher [employer] EDSherrie Rogers, TOURING PRODUCTION MANAGER-C TOURING PRODUCTION MANAGER-CkFidencio Carrington MD MD [facility] Charo Garcia RN RN Anuj Maldonado RN RN mg2 Corrections: (The following items were deleted from the chart) 05/23 13:09 12:59 05/23/2019 12:59 Discharged to Home. Impression: Edema, not elsewhere classified mg2 - bilateral feet. Condition is Stable. Forms are Medication Reconciliation Form, Thank You Letter, Antibiotic Education, Prescription Opioid Use. Follow up: Emergency Department; When: As needed; Reason: Worsening of condition. Follow up: Private Physician; When: 2 - 3 days; Reason: Recheck today's complaints, Continuance of care, Re-evaluation by your physician. kb
[2019-05-23 13:17] VITALS: O2SAT 100
[2019-05-23 13:19] VITALS: BP 125/84; TEMP 98
--- NOTE | 2019-05-23 13:23 | EKG ---
Test Date: 2019-05-23 Test Time: 12:13:42 Crown Perforator Operator: MAXIM MEASUREMENT RESULTS: Intervals: Rate: 53 CA: 166 QRSD: 98 QT: 424 QTc: 397 Gaines: P: 48 CA: 166 QRS: 42 T: 52 INTERPRETIVE STATEMENTS: Sinus bradycardia Otherwise normal ECG Compared to ECG 01/18/2016 03:44:30 Sinus tachycardia no longer present Electronically Signed On 05-23-19 13:22:51 BITUMINOUS DISTRIBUTOR OPERATOR by Tyron Ramon
== END 2019-05-23 13:09 | disposition home or self-care (01) ==
LOC: ER 11:26
DX: R60.9 Edema, unspecified (principal); K21.9 Gastro-esophageal reflux disease without esophagitis; F17.210 Nicotine dependence, cigarettes, uncomplicated
CPT/HCPCS: 36415; 71045; 80048; 83880; 85025; 93005; 93970; 99284

== ENCOUNTER 2019-10-04 01:36 | Emergency (ER) | payer SELFPAY ==
--- OUTSIDE RECORDS SUMMARY | 2019-10-04 01:38 | XMS REPORT ---
:1975 Author Organization [facility] t Address [facility] [place] [address] Care Team Providers Name Role Phone SHONDA BRAUN Unavailable Unavailable Payers Payer Name Policy Type Policy Number Effective Date Expiration D ate Problems This patient has no known problems. Allergies, Adverse Reactions, Alerts Allergy Allergy Status Severity Reaction(s) Onset Inactive Treating C omments Name Type Date Date Clinician No Known DA Active U 2019-06 Allergies - 00:00:0 0 Medications This patient has no known medications. Results Test Description Test Time Test Comments Text Results Atomic Results Result Comments LIPASE 2018-12-07 07:30:00 Test Item Value Reference Range Comments LIPASE (BEAKER) (test code = 749) 238 U/L 8-78 TISSUE [id number] 08:54:00Surgical Pathology Report Case: [id number] Authorizing Provider: Stefanie Maya MD Collected: 12/05/2018 0933 Ordering Location: [address] Received: 12/05/2018 1350 Service Pathologist: Christy Perdomo MD Specimen: Biopsy, Gastric, Gastric/antrum biopsy A. STOMACH, ANTRUM, BIOPSY: - BODY/TRANSITIONAL MUCOSA WITH NO SIGNIFICANT DIAGNOSTIC ABNORMALITY - NEGATIVE FOR HELICOBACTER PYLORI ORGANISMS BY WARTHIN STARRY STAIN - NEGATIVE FOR INTESTINAL METAPLASIA, DYSPLASIA, MALIGNANCY Signing Pathologist Direct Phone Line: [phone] signed by Christy Perdomo MD on 12/06/2018 at 8:54 [id number], presence of unspecified bleedingGastric antrum biopsyThe specimen consists of three pieces of esposito tissue measuring 2 mm in greatest dimensioneach, submitted entirely as A1. TW/plPerformed.The interpretation of this case included the use of im munohistochemistry or special stains.Control Slides Examined: In-house known positive controls wereevaluated along with the test tissue. These control slides run alongside of the patients sample show appropriate staining. Internal positive and negative controls when available are evaluated Immunohistochemistry technical testing was performed at [facility], Pathology Laboratory where it was developed and [...] to perform high complexity clinical laboratory testing.LIPID [id number] 06:14:00 Test Item Value Reference Range Comments TRIGLYCERIDES (BEAKER) (test code = 540) 106 mg/dL CHOLESTEROL (BEAKER) (test code = 631) 102 mg/dL HDL CHOLESTEROL (BEAKER) (test code = 976) 14 mg/dL LDL CHOLESTEROL CALCULATED (BEAKER) (test code = 67 mg/dL 633) Triglyceride Reference Range: Low Risk <150 Borderline 150-199 High Risk 200-499 Very High Risk >=500Cholesterol Reference Range: Low Risk <200 Borderline 200-239 High Risk >240HDL Cholesterol Reference Range: Low Risk >=60 High Risk <40LDL Cholesterol Reference Range: Optimal <100 Near Optimal 100-129 Borderline 130-159 High 160-189 Very High >=190BASIC METABOLIC [id number] 06:14:00 Test Item Value Reference Range Comments SODIUM (BEAKER) (test 131 meq/L 136-145 code = 381) POTASSIUM (BEAKER) (test 3.9 meq/L 3.5-5.1 code = 379) CHLORIDE (BEAKER) (test 103 meq/L 98-107 code = 382) CO2 (BEAKER) (test code = 19 meq/L 22-29 355) BLOOD UREA NITROGEN 7 mg/dL 7-21 (BEAKER) (test code = 354) CREATININE (BEAKER) (test 0.62 mg/dL 0.57-1.25 code = 358) GLUCOSE RANDOM (BEAKER) 78 mg/dL 70-105 (test code = 652) CALCIUM (BEAKER) (test 8.4 mg/dL 8.4-10.2 code = 697) EGFR (BEAKER) (test code 142 mL/min/1.73 sq m ES TIMATED GFR IS NOT = 1092) ACCURATE CREA TININE CLEARANCE IN PRE DICTING GLOMERULAR FILTR ATION RATE. ESTIMATED GFR IS NOT APPLICABLE F OR DIALYSIS PATIENT S. HEPATIC FUNCTION [id number] 06:14:00 Test Item Value Reference Range Comments TOTAL PROTEIN (BEAKER) (test code = 770) 6.5 gm/dL 6.0-8.3 ALBUMIN (BEAKER) (test code = 1145) 2.9 g/dL 3.5-5.0 BILIRUBIN TOTAL (BEAKER) (test code = 377) 0.3 mg/dL 0.2-1 .2 BILIRUBIN DIRECT (BEAKER) (test code = 706) 0.2 mg/dL 0.1- 0.5 ALKALINE PHOSPHATASE (BEAKER) (test code = 346) 54 U/L 40-150 AST (SGOT) (BEAKER) (test code = 353) 15 U/L 5-34 ALT (SGPT) (BEAKER) (test code = 347) 8 U/L 6-55 CBC W/PLT COUNT & AUTO [id number] 05:29:00 Test Item Value Reference Range Comments WHITE BLOOD CELL COUNT (BEAKER) (test code = 4.6 K/ L 3.5 -10.5 775) RED BLOOD CELL COUNT (BEAKER) (test code = 761) 4.07 M/ L 4.63-6.08 HEMOGLOBIN (BEAKER) (test code = 410) 12.5 GM/DL 13.7-17.5 HEMATOCRIT (BEAKER) (test code = 411) 38.6 % 40.1-51.0 MEAN CORPUSCULAR VOLUME (BEAKER) (test code = 94.8 fL 79 .0-92.2 753) MEAN CORPUSCULAR HEMOGLOBIN (BEAKER) (test code 30.7 pg 25.7-32.2 = 751) MEAN CORPUSCULAR HEMOGLOBIN CONC (BEAKER) (test 32.4 GM/DL 32.3-36.5 code = 752) RED CELL DISTRIBUTION WIDTH (BEAKER) (test code 14.2 % 11.6-14.4 = 412) PLATELET COUNT (BEAKER) (test code = 756) 174 K/CU MM 150-45 0 MEAN PLATELET VOLUME (BEAKER) (test code = 754) 11.9 fL 9.4-12.4 NUCLEATED RED BLOOD CELLS (BEAKER) (test code = 0 /100 WBC 0-0 413) NEUTROPHILS RELATIVE PERCENT (BEAKER) (test code 69 % = 429) LYMPHOCYTES RELATIVE PERCENT (BEAKER) (test code 20 % = 430) MONOCYTES RELATIVE PERCENT (BEAKER) (test code = 11 % 431) EOSINOPHILS RELATIVE PERCENT (BEAKER) (test code 1 % = 432) BASOPHILS RELATIVE PERCENT (BEAKER) (test code = 0 % 437) NEUTROPHILS ABSOLUTE COUNT (BEAKER) (test code = 3.13 K/ L 1.78-5.38 670) LYMPHOCYTES ABSOLUTE COUNT (BEAKER) (test code = 0.89 K/ L 1.32-3.57 414) MONOCYTES ABSOLUTE COUNT (BEAKER) (test code = 0.48 K/ L 0 .30-0.82 415) EOSINOPHILS ABSOLUTE COUNT (BEAKER) (test code = 0.03 K/ L 0.04-0.54 416) BASOPHILS ABSOLUTE COUNT (BEAKER) (test code = 0.02 K/ L 0 .01-0.08 417) IMMATURE GRANULOCYTES-RELATIVE PERCENT (BEAKER) 0 % 0-1 (test code = 2801) LIPID [id number] 06:19:00 Test Item Value Reference Range Comments TRIGLYCERIDES (BEAKER) (test code = 540) 95 mg/dL CHOLESTEROL (BEAKER) (test code = 631) 98 mg/dL HDL CHOLESTEROL (BEAKER) (test code = 976) 14 mg/dL LDL CHOLESTEROL CALCULATED (BEAKER) (test code = 65 mg/dL 633) Triglyceride Reference Range: Low Risk <150 Borderline 150-199 High Risk 200-499 Very High Risk >=500Cholesterol Reference Range: Low Risk <200 Borderline 200-239 High Risk >240HDL Cholesterol Reference Range: Low Risk >=60 High Risk <40LDL Cholesterol Reference Range: Optimal <100 Near Optimal 100-129 Borderline 130-159 High 160-189 Very High >=190BASIC METABOLIC [id number] 06:19:00 Test Item Value Reference Range Comments SODIUM (BEAKER) (test 131 meq/L 136-145 code = 381) POTASSIUM (BEAKER) (test 4.0 meq/L 3.5-5.1 code = 379) CHLORIDE (BEAKER) (test 100 meq/L 98-107 code = 382) CO2 (BEAKER) (test code = 23 meq/L 22-29 355) BLOOD UREA NITROGEN 10 mg/dL 7-21 (BEAKER) (test code = 354) CREATININE (BEAKER) (test 0.61 mg/dL 0.57-1.25 code = 358) GLUCOSE RANDOM (BEAKER) 86 mg/dL 70-105 (test code = 652) CALCIUM (BEAKER) (test 8.6 mg/dL 8.4-10.2 code = 697) EGFR (BEAKER) (test code 144 mL/min/1.73 sq m ES TIMATED GFR IS NOT = 1092) ACCURATE CREA TININE CLEARANCE IN PRE DICTING GLOMERULAR FILTR ATION RATE. ESTIMATED GFR IS NOT APPLICABLE F OR DIALYSIS PATIENT S. HEPATIC FUNCTION [id number] 06:19:00 Test Item Value Reference Range Comments TOTAL PROTEIN (BEAKER) (test code = 770) 6.6 gm/dL 6.0-8.3 ALBUMIN (BEAKER) (test code = 1145) 3.0 g/dL 3.5-5.0 BILIRUBIN TOTAL (BEAKER) (test code = 377) 0.5 mg/dL 0.2-1 .2 BILIRUBIN DIRECT (BEAKER) (test code = 706) 0.4 mg/dL 0.1- 0.5 ALKALINE PHOSPHATASE (BEAKER) (test code = 346) 51 U/L 40-150 AST (SGOT) (BEAKER) (test code = 353) 10 U/L 5-34 ALT (SGPT) (BEAKER) (test code = 347) 7 U/L 6-55 CBC W/PLT COUNT & AUTO [id number] 05:47:00 Test Item Value Reference Range Comments WHITE BLOOD CELL COUNT (BEAKER) (test code = 6.1 K/ L 3.5 -10.5 775) RED BLOOD CELL COUNT (BEAKER) (test code = 761) 4.05 M/ L 4.63-6.08 HEMOGLOBIN (BEAKER) (test code = 410) 12.3 GM/DL 13.7-17.5 HEMATOCRIT (BEAKER) (test code = 411) 37.9 % 40.1-51.0 MEAN CORPUSCULAR VOLUME (BEAKER) (test code = 93.6 fL 79 .0-92.2 753) MEAN CORPUSCULAR HEMOGLOBIN (BEAKER) (test code 30.4 pg 25.7-32.2 = 751) MEAN CORPUSCULAR HEMOGLOBIN CONC (BEAKER) (test 32.5 GM/DL 32.3-36.5 code = 752) RED CELL DISTRIBUTION WIDTH (BEAKER) (test code 14.5 % 11.6-14.4 = 412) PLATELET COUNT (BEAKER) (test code = 756) 162 K/CU MM 150-45 0 MEAN PLATELET VOLUME (BEAKER) (test code = 754) 11.9 fL 9.4-12.4 NUCLEATED RED BLOOD CELLS (BEAKER) (test code = 0 /100 WBC 0-0 413) NEUTROPHILS RELATIVE PERCENT (BEAKER) (test code 73 % = 429) LYMPHOCYTES RELATIVE PERCENT (BEAKER) (test code 17 % = 430) MONOCYTES RELATIVE PERCENT (BEAKER) (test code = 8 % 431) EOSINOPHILS RELATIVE PERCENT (BEAKER) (test code 1 % = 432) BASOPHILS RELATIVE PERCENT (BEAKER) (test code = 1 % 437) NEUTROPHILS ABSOLUTE COUNT (BEAKER) (test code = 4.40 K/ L 1.78-5.38 670) LYMPHOCYTES ABSOLUTE COUNT (BEAKER) (test code = 1.05 K/ L 1.32-3.57 414) MONOCYTES ABSOLUTE COUNT (BEAKER) (test code = 0.51 K/ L 0 .30-0.82 415) EOSINOPHILS ABSOLUTE COUNT (BEAKER) (test code = 0.03 K/ L 0.04-0.54 416) BASOPHILS ABSOLUTE COUNT (BEAKER) (test code = 0.03 K/ L 0 .01-0.08 417) IMMATURE GRANULOCYTES-RELATIVE PERCENT (BEAKER) 1 % 0-1 (test code = 2801) U/S, ABDOMINAL, [id number] 22:07:00Abdomen limited area? Add comment if clarification [...] MartiniMDReport Verified Date/Time: 12/04/2018 22:07:39 Reading Location: [facility] [id number] Consult Reading Room HEMOGLOBIN [id number] 09:50:00 Test Item Value Reference Range Comments HEMOGLOBIN A1C ([facility]) (test code = 368) 5.0 % 4.3-6. 1 LIPID [id number] 06:14:00 Test Item Value Reference Range Comments TRIGLYCERIDES (BEAKER) (test code = 540) 109 mg/dL CHOLESTEROL (BEAKER) (test code = 631) 107 mg/dL HDL CHOLESTEROL (AKER) (test code = 976) 17 mg/dL LDL CHOLESTEROL CALCULATED ([facility]) (test code = 68 mg/dL 633) Triglyceride Reference Range: Low Risk <150 Borderline 150-199 High Risk 200-499 Very High Risk >=500Cholesterol Reference Range: Low Risk <200 Borderline 200-239 High Risk >240HDL Cholesterol Reference Range: Low Risk >=60 High Risk <40LDL Cholesterol Reference Range: Optimal <100 Near Optimal 100-129 Borderline 130-159 High 160-189 Very High >=190BASIC METABOLIC [id number] 06:14:00 Test Item Value Reference Range Comments SODIUM (BEAKER) (test 131 meq/L 136-145 code = 381) POTASSIUM (BEAKER) (test 4.1 meq/L 3.5-5.1 code = 379) CHLORIDE (BEAKER) (test 99 meq/L 98-107 code = 382) CO2 (BEAKER) (test code = 21 meq/L 22-29 355) BLOOD UREA NITROGEN 15 mg/dL 7-21 (BEAKER) (test code = 354) CREATININE (BEAKER) (test 0.65 mg/dL 0.57-1.25 code = 358) GLUCOSE RANDOM (BEAKER) 76 mg/dL 70-105 (test code = 652) CALCIUM (BEAKER) (test 8.9 mg/dL 8.4-10.2 code = 697) EGFR (BEAKER) (test code 134 mL/min/1.73 sq m ES TIMATED GFR IS NOT = 1092) ACCURATE CREA TININE CLEARANCE IN PRE DICTING GLOMERULAR FILTR ATION RATE. ESTIMATED GFR IS NOT APPLICABLE F OR DIALYSIS PATIENT S. HEPATIC FUNCTION [id number] 06:14:00 Test Item Value Reference Range Comments TOTAL PROTEIN (BEAKER) (test code = 770) 7.3 gm/dL 6.0-8.3 ALBUMIN (BEAKER) (test code = 1145) 3.4 g/dL 3.5-5.0 BILIRUBIN TOTAL (BEAKER) (test code = 377) 0.6 mg/dL 0.2-1 .2 BILIRUBIN DIRECT (BEAKER) (test code = 706) 0.4 mg/dL 0.1- 0.5 ALKALINE PHOSPHATASE (BEAKER) (test code = 346) 63 U/L 40-150 AST (SGOT) (BEAKER) (test code = 353) 11 U/L 5-34 ALT (SGPT) (BEAKER) (test code = 347) 12 U/L 6-55 [id number] 06:14:00 Test Item Value Reference Range Comments LIPASE (BEAKER) (test code = 749) 279 U/L 8-78 CBC W/PLT COUNT & AUTO [id number] 05:59:00 Test Item Value Reference Range Comments WHITE BLOOD CELL COUNT (BEAKER) (test code = 10.0 K/ L 3.5 -10.5 775) RED BLOOD CELL COUNT (BEAKER) (test code = 761) 4.48 M/ L 4.63-6.08 HEMOGLOBIN (BEAKER) (test code = 410) 13.8 GM/DL 13.7-17.5 HEMATOCRIT (BEAKER) (test code = 411) 41.8 % 40.1-51.0 MEAN CORPUSCULAR VOLUME (BEAKER) (test code = 93.3 fL 79 .0-92.2 753) MEAN CORPUSCULAR HEMOGLOBIN (BEAKER) (test code 30.8 pg 25.7-32.2 = 751) MEAN CORPUSCULAR HEMOGLOBIN CONC (BEAKER) (test 33.0 GM/DL 32.3-36.5 code = 752) RED CELL DISTRIBUTION WIDTH (BEAKER) (test code 14.7 % 11.6-14.4 = 412) PLATELET COUNT (BEAKER) (test code = 756) 207 K/CU MM 150-45 0 MEAN PLATELET VOLUME (BEAKER) (test code = 754) 12.5 fL 9.4-12.4 NUCLEATED RED BLOOD CELLS (BEAKER) (test code = 0 /100 WBC 0-0 413) NEUTROPHILS RELATIVE PERCENT (BEAKER) (test code 79 % = 429) LYMPHOCYTES RELATIVE PERCENT (BEAKER) (test code 14 % = 430) MONOCYTES RELATIVE PERCENT (BEAKER) (test code = 7 % 431) EOSINOPHILS RELATIVE PERCENT (BEAKER) (test code 0 % = 432) BASOPHILS RELATIVE PERCENT (BEAKER) (test code = 0 % 437) NEUTROPHILS ABSOLUTE COUNT (BEAKER) (test code = 7.84 K/ L 1.78-5.38 670) LYMPHOCYTES ABSOLUTE COUNT (BEAKER) (test code = 1.36 K/ L 1.32-3.57 414) MONOCYTES ABSOLUTE COUNT (BEAKER) (test code = 0.66 K/ L 0 .30-0.82 415) EOSINOPHILS ABSOLUTE COUNT (BEAKER) (test code = 0.04 K/ L 0.04-0.54 416) BASOPHILS ABSOLUTE COUNT (BEAKER) (test code = 0.04 K/ L 0 .01-0.08 417) IMMATURE GRANULOCYTES-RELATIVE PERCENT (BEAKER) 0 % 0-1 (test code = 2801)
[2019-10-04] MEDS ORDERED: MORPHINE 2 MG/ML SYR ONE (02:14)
[2019-10-04] MEDS ORDERED: NA CHLORIDE 0.9% 1,000 ML ONE (02:14)
[2019-10-04] MEDS ORDERED: ONDANSETRON 4 MG/2 ML VIAL ONE ×2 (02:14→02:55)
[2019-10-04] MEDS ORDERED: PANTOPRAZOLE 40 MG INJ ONE (02:14)
[2019-10-04 02:38] LABS: Protime INR 0.99
[2019-10-04 02:39] LABS: Absolute Lymphocytes (CBC) 1.5 K/uL (0.7-4.9); Basophils % 0.5 % (0-1.3); Hematocrit 52.2 % (39.6-49.0); Lymphocytes % 12.5 % (15.3-44.8); MPV 10.4 fL (7.6-11.3); RBC Red Blood Cell Count 5.92 M/uL (4.33-5.43)
[2019-10-04] MEDS ORDERED: ASPIRIN 81 MG CHEWABLE TABLET ONE (02:57)
[2019-10-04 03:28] LABS: ALT/SGPT 22 U/L (12-78); AST/SGOT 17 U/L (15-37); Albumin 4.1 g/dL (3.4-5.0); Alkaline Phosphatase 89 U/L (45-117); BUN Blood Urea Nitrogen 17 mg/dL (7-18); Bicarbonate 29 mmol/L (21-32); Bilirubin Direct 0.2 mg/dL (0-0.2); Bilirubin Total 0.6 mg/dL (0.2-1.0); Glucose Level 109 mg/dL (74-106); Lipase 1801 U/L (73-393); Magnesium 2.3 mg/dL (1.8-2.4); NT PRO-BNP 721 pg/mL (<125); Potassium 4.1 mmol/L (3.5-5.1); Protein, Total 9.4 g/dL (6.4-8.2); Sodium Level 134 mmol/L (136-145); Troponin (Emerg Dept Use Only) < 0.02 ng/mL (0.0-0.045)
--- NOTE | 2019-10-04 04:56 | ER ---
Nurse's Notes [facility] Name: Kevin Chaudhary Age: 44 yrs Sex: Male : 1975 Arrival Date: 10/04/2019 Time: 01:39 Bed 13 Private MD: Diagnosis: Esophagitis;Gastritis, unspecified, without bleeding Presentation: 10/03 01:54 Chief complaint: Patient states: Epigastric pain with burning sensation radiating up to lp1 chest x 2 days; unable to tolerate food, vomiting when pain gets worse; No relief with Tums, Rolaids, Nexium or Protonix. Coronavirus screen: Proceed with normal triage. Ebola Screen: No symptoms or risks identified at this time. Initial Sepsis Screen: Does the patient meet any 2 criteria? No. Patient's initial sepsis screen is negative. Does the patient have a suspected source of infection? No. Patient's initial sepsis screen is negative. Risk Assessment: Do you want to hurt yourself or someone else? Patient reports no desire to harm self or others. Onset of symptoms was October 02, 2019. 01:54 Method Of Arrival: Ambulatory lp1 01:54 Acuity: NIHARIKA 3 lp1 Historical: - Allergies: 01:59 No Known Allergies; lp1 - Home Meds: :59 Nexium 40 mg Oral cpDR 1 cap once daily [Active]; Protonix Oral [Active]; lp1 - PMHx: 01:59 Diverticulitis; GERD; Pancreatitis; lp1 - PSHx: 01:59 Colonostomy reversal; Hernia repair with mesh; lp1 - Immunization history:: Adult Immunizations up to date. - Social history:: Smoking status: Patient reports the use of cigarette tobacco products, smokes one-half pack cigarettes per day. Screenin:59 Abuse screen: Denies threats or abuse. Denies injuries from another. Nutritional lp1 screening: No deficits noted. Tuberculosis screening: No symptoms or risk factors identified. Fall Risk None identified. Assessment: 02:15 General: Appears in no apparent distress. comfortable, Behavior is calm, cooperative. mg2 Pain: Complains of pain in abdomen Pain does not radiate. Pain currently is 8 out of 10 on a pain scale. Quality of pain is described as aching, Pain began gradually, Is intermittent. Neuro: Level of Consciousness is awake, alert, obeys commands, Oriented to person, place, time, situation. Cardiovascular: Capillary refill < 3 seconds Patient's skin is warm and dry. Cardiovascular: Reports chest pain. Respiratory: Airway is patent Respiratory effort is even, unlabored, Respiratory pattern is regular, symmetrical. GI: Bowel sounds Abd is soft and non tender X 4 quads. Reports epigastric pain, nausea, vomiting. : No signs and/or symptoms were reported regarding the genitourinary system. EENT: No signs and/or symptoms were reported regarding the EENT system. Derm: Skin is intact, is healthy with good turgor, Skin is pink, warm \T\ dry. normal. Musculoskeletal: Circulation, motion, and sensation intact. Capillary refill < 3 seconds. 02:58 Reassessment: Patient appears in no apparent distress at this time. Patient and/or mg2 family updated on plan of care and expected duration. Pain level reassessed. Patient is alert, oriented x 3, equal unlabored respirations, skin warm/dry/pink. Patient states feeling better. 03:36 Reassessment: patient sent to ct scan via stretcher. mg2 03:58 Reassessment: Patient appears in no apparent distress at this time. Patient and/or mg2 family updated on plan of care and expected duration. Pain level reassessed. Patient is alert, oriented x 3, equal unlabored respirations, skin warm/dry/pink. Vital Signs: 01:54 BP 137 / 120; Pulse 97; Resp 18; Temp 98.6(O); Pulse Ox 100% on R/A; Weight 79.38 kg lp1 (R); Height 6 ft. 0 in. (182.88 cm); Pain 7/10; 02:17 BP 168 / 114 LA; Pulse 85; Resp 18; Pulse Ox 98% on R/A; mg2 02:17 BP 178 / 113 RA; Pulse 82; Resp 18; Pulse Ox 100% on R/A; mg2 03:35 BP 173 / 106; Pulse 75; Resp 18; Pulse Ox 99% on R/A; mg2 03:58 BP 151 / 105; Pulse 81; Resp 18; Pulse Ox 100% on R/A; mg2 05:06 BP 150 / 102; Pulse 75; Resp 18; Temp 98; Pulse Ox 100% on R/A; Pain 1/10; mg2 01:54 Body Mass Index 23.73 (79.38 kg, 182.88 cm) lp1 ED Course: 01:39 Patient arrived in ED. ds1 01:45 Shahab Wyatt PA is PHCP. cp 01:45 Shantanu Cain MD is Attending Physician. cp 01:56 Triage completed. lp1 01:56 Arm band placed on. lp1 02:00 Patient has correct armband on for positive identification. Bed in low position. lp1 monitoring tech on. Pulse ox on. NIBP on. 02:05 Inserted saline lock: 20 gauge in right forearm, using aseptic technique. Blood mg2 collected. 02:07 Anuj Maldonado, RN is Primary Nurse. mg2 02:16 No provider procedures requiring assistance completed. mg2 02:31 XRAY Chest (1 view) In Process Unspecified. EDMS 03:24 Radiology exam delayed due to lab results not completed at this time. (BUN/Creatinine). kw1 04:01 CT Abd/Pelvis - IV Contrast Only In Process Unspecified. EDMS 04:57 Hakeem Hector MD is Referral Physician. tw4 04:57 Jeffrey Macias MD is Referral Physician. tw4 04:57 Charlette Smith MD is Referral Physician. tw4 05:07 IV discontinued, intact, bleeding controlled, No redness/swelling at site. Pressure mg2 dressing applied. Administered Medications: 02:13 Drug: morphine 2 mg Route: IVP; Site: right forearm; mg2 03:34 Follow up: Response: No adverse reaction; Marked relief of symptoms; Pain is decreased; mg2 RASS: Alert and Calm (0) 02:13 Drug: NS 0.9% 1000 ml Route: IV; Rate: 1 bolus; Site: right forearm; mg2 03:33 Follow up: Response: No adverse reaction; IV Status: Completed infusion; IV Intake: mg2 1000ml 02:14 Drug: Zofran (Ondansetron) 4 mg Route: IVP; Site: right forearm; mg2 03:34 Follow up: Response: No adverse reaction; Marked relief of symptoms mg2 02:14 Drug: ProTONIX 40 mg Route: IVP; Site: right forearm; mg2 03:34 Follow up: Response: No adverse reaction mg2 02:50 Drug: Zofran (Ondansetron) 4 mg Route: IVP; Site: right forearm; mg2 03:33 Follow up: Response: No adverse reaction mg2 02:51 Drug: Aspirin Chewable Tablet 324 mg Route: PO; mg2 03:33 Follow up: Response: No adverse reaction mg2 03:33 Follow up: Response: No adverse reaction mg2 Intake: 03:33 IV: 1000ml; Total: 1000ml. mg2 Outcome: 04:56 Discharge ordered by . tw4 05:07 Discharged to home ambulatory. mg2 05:07 Condition: stable 05:07 Discharge instructions given to patient, Instructed on discharge instructions, follow up and referral plans. medication usage, Demonstrated understanding of instructions, follow-up care, medications, Prescriptions given X 4. 05:07 Patient left the ED. mg2 Signatures: Dispatcher [employer] EDUT HoBarb cooper ds1 Sania Feliciano, RN RN lp1 Shahab Wyatt PA PA cp Wilhelm, Kimberly kw1 Shantanu Cain MD MD tw4 Anuj Maldonado RN RN mg2
--- NOTE | 2019-10-04 04:56 | EDPHYS ---
Physician Documentation [facility] Name: Kevin Chaudhary Age: 44 yrs Sex: Male : 1975 Arrival Date: 10/04/2019 Time: 01:39 Bed 13 Private MD: ED Physician Shantanu Cain HPI: 10/03 02:04 This 44 yrs old Male presents to ER via Ambulatory with complaints of chest cp pain. 02:05 The patient or guardian reports chest pain that is located primarily in the substernal cp area. 02:05 Onset: 2 day(s) ago. Associated signs and symptoms: Pertinent positives: nausea, cp vomiting, Pertinent negatives: abdominal pain, cough, lower extremity pain, lower extremity swelling, shortness of breath. The chest pain is described as burning. Duration: The patient or guardian reports a single episode, that is still ongoing, and worsening. Historical: - Allergies: 01:59 No Known Allergies; lp1 - Home Meds: 01:59 Nexium 40 mg Oral cpDR 1 cap once daily [Active]; Protonix Oral [Active]; lp1 - PMHx: 01:59 Diverticulitis; GERD; Pancreatitis; lp1 - PSHx: 01:59 Colonostomy reversal; Hernia repair with mesh; lp1 - Immunization history:: Adult Immunizations up to date. - Social history:: Smoking status: Patient reports the use of cigarette tobacco products, smokes one-half pack cigarettes per day. ROS: 02:08 Constitutional: Negative for body aches, chills, fever, poor PO intake. cp 02:08 Eyes: Negative for injury, pain, redness, and discharge. cp 02:08 ENT: Negative for drainage from ear(s), ear pain, sore throat, difficulty swallowing, difficulty handling secretions. 02:08 Cardiovascular: Positive for chest pain, of the substernal, Negative for edema, palpitations. 02:08 Respiratory: Negative for cough, shortness of breath, wheezing. 02:08 Abdomen/GI: Positive for nausea and vomiting, Negative for diarrhea, constipation, anorexia, hematemesis, black/tarry stool, rectal bleeding. 02:08 Back: Negative for radiated pain. 02:08 : Negative for urinary symptoms, flank pain. 02:08 Skin: Negative for rash. 02:08 Neuro: Negative for altered mental status, dizziness, headache, syncope, weakness. 02:08 All other systems are negative. Exam: 02:06 ECG was reviewed by the Attending Physician. cp 02:15 Constitutional: The patient appears in no acute distress, alert, awake, cp non-diaphoretic, non-toxic, well developed, well nourished, uncomfortable. 02:15 Head/Face: Normocephalic, atraumatic. cp 02:15 Eyes: Periorbital structures: appear normal, Conjunctiva: normal, no exudate, no injection, Sclera: no appreciated abnormality, Lids and lashes: appear normal, bilaterally. 02:15 ENT: External ear(s): are unremarkable, Nose: is normal, Mouth: Lips: moist, Oral mucosa: moist, Posterior pharynx: is normal, airway is patent, no erythema, no exudate. 02:15 Chest/axilla: Inspection: normal, Palpation: crepitus, is not appreciated, tenderness, that is mild, of the mid-sternal area and left breast. 02:15 Cardiovascular: Rate: normal, Rhythm: regular, Heart sounds: murmur, not appreciated, Edema: is not appreciated, JVD: is not appreciated. 02:15 Respiratory: the patient does not display signs of respiratory distress, Respirations: normal, no use of accessory muscles, no retractions, labored breathing, is not present, Breath sounds: are clear throughout, no decreased breath sounds, no stridor, no wheezing. 02:15 Abdomen/GI: Inspection: abdomen appears normal, Bowel sounds: active, all quadrants, Palpation: abdomen is soft and non-tender, in all quadrants. 02:15 Neuro: Orientation: is normal, Mentation: is normal, Motor: moves all fours, strength is normal. Vital Signs: 01:54 BP 137 / 120; Pulse 97; Resp 18; Temp 98.6(O); Pulse Ox 100% on R/A; Weight 79.38 kg lp1 (R); Height 6 ft. 0 in. (182.88 cm); Pain 7/10; 02:17 BP 168 / 114 LA; Pulse 85; Resp 18; Pulse Ox 98% on R/A; mg2 02:17 BP 178 / 113 RA; Pulse 82; Resp 18; Pulse Ox 100% on R/A; mg2 03:35 BP 173 / 106; Pulse 75; Resp 18; Pulse Ox 99% on R/A; mg2 03:58 BP 151 / 105; Pulse 81; Resp 18; Pulse Ox 100% on R/A; mg2 05:06 BP 150 / 102; Pulse 75; Resp 18; Temp 98; Pulse Ox 100% on R/A; Pain 1/10; mg2 01:54 Body Mass Index 23.73 (79.38 kg, 182.88 cm) lp1 MDM: 02:00 Patient medically screened. cp 02:15 Differential diagnosis: abnormal EKG, acute myocardial infarction, cholecystitis, cp Cholelithiasis esophagitis, gastritis, gastroesophageal reflux disease (GERD), pancreatitis, peptic ulcer disease, thoracic aortic disection. 10/03 01:57 Order name: Basic Metabolic Panel; Complete Time: 04:30 cp 10/03 04:30 Interpretation: Normal except: NA 134; CL 94; GLUC 109; GFR 78. cp 10/03 01:57 Order name: CBC with Diff; Complete Time: 02:50 cp 10/03 02:50 Interpretation: Normal except: WBC 12.4; RBC 5.92; HCT 52.2; WALT% 81.0; LYM% 12.5; NEUT cp A 10.0. 10/03 01:57 Order name: LFT's; Complete Time: 04:30 cp 10/03 01:57 Order name: Magnesium; Complete Time: 04:30 cp 10/03 01:57 Order name: NT PRO-BNP; Complete Time: 04:30 cp 10/03 01:57 Order name: PT-INR; Complete Time: 02:50 cp 10/03 01:57 Order name: Troponin (emerg Dept Use Only); Complete Time: 04:30 cp 10/03 01:57 Order name: XRAY Chest (1 view) cp 10/03 01:57 Order name: Lipase; Complete Time: 04:30 cp 10/03 02:55 Order name: CT Abd/Pelvis - IV Contrast Only cp 10/03 01:57 Order name: EKG; Complete Time: 01:58 cp 10/03 01:57 Order name: Cardiac monitoring; Complete Time: 02:00 cp 10/03 01:57 Order name: EKG - Nurse/Tech; Complete Time: 02:14 cp 10/03 01:57 Order name: IV Saline Lock; Complete Time: 02:14 cp 10/03 01:57 Order name: Labs collected and sent; Complete Time: 02:15 cp 10/03 01:57 Order name: O2 Per Protocol; Complete Time: 02:00 cp 10/03 01:57 Order name: O2 Sat Monitoring; Complete Time: 02:01 cp 10/03 01:58 Order name: Blood Pressure Recheck: bilateral upper extremity; Complete Time: 02:29 cp EC:06 Rate is 101 beats/min. Rhythm is regular. NC interval is normal. QRS interval is cp normal. QT interval is normal. T waves are Inverted in lead aVR. Interpreted by me. Reviewed by me. Administered Medications: 02:13 Drug: morphine 2 mg Route: IVP; Site: right forearm; mg2 03:34 Follow up: Response: No adverse reaction; Marked relief of symptoms; Pain is decreased; mg2 RASS: Alert and Calm (0) 02:13 Drug: NS 0.9% 1000 ml Route: IV; Rate: 1 bolus; Site: right forearm; mg2 03:33 Follow up: Response: No adverse reaction; IV Status: Completed infusion; IV Intake: mg2 1000ml 02:14 Drug: Zofran (Ondansetron) 4 mg Route: IVP; Site: right forearm; mg2 03:34 Follow up: Response: No adverse reaction; Marked relief of symptoms mg2 02:14 Drug: ProTONIX 40 mg Route: IVP; Site: right forearm; mg2 03:34 Follow up: Response: No adverse reaction mg2 02:50 Drug: Zofran (Ondansetron) 4 mg Route: IVP; Site: right forearm; mg2 03:33 Follow up: Response: No adverse reaction mg2 02:51 Drug: Aspirin Chewable Tablet 324 mg Route: PO; mg2 03:33 Follow up: Response: No adverse reaction mg2 03:33 Follow up: Response: No adverse reaction mg2 Disposition: 04:59 Co-signature as Attending Physician, Shantanu Cain MD I agree with the assessment and tw4 plan of care. Disposition: 10/04/19 04:56 Discharged to Home. Impression: Esophagitis, Gastritis, unspecified, without bleeding. - Condition is Stable. - Discharge Instructions: Esophagitis, Gastritis, Adult. - Prescriptions for Carafate 100 mg/mL Oral suspension - take 20 milliliter by ORAL route once daily; 200 milliliter. Bentyl 20 mg Oral Tablet - take 1 tablet by ORAL route every 6 hours As needed; 20 tablet. Protonix 40 mg Oral Tablet - take 1 tablet by ORAL route once daily; 30 tablet. Zofran 4 mg Oral Tablet - take 1 tablet by ORAL route every 12 hours As needed; 6 tablet. - Medication Reconciliation Form, Thank You Letter, Antibiotic Education, Prescription Opioid Use form. - Follow up: Private Physician; When: Upon discharge from the Emergency Department; Reason: Recheck today's complaints, Continuance of care, Re-evaluation by your physician. Follow up: Hakeem Hector MD; When: 1 week; Reason: Recheck today's complaints, Continuance of care, Re-evaluation by your physician. Follow up: Jeffrey Macias MD; When: 1 week; Reason: Recheck today's complaints, Continuance of care, Re-evaluation by your physician. Follow up: Charlette Smith MD; When: 1 week; Reason: Recheck today's complaints, Continuance of care, Re-evaluation by your physician. - Problem is new. - Symptoms have improved. Signatures: Dispatcher [employer] EDMS Sania Feliciano RN RN lp1 Shahab Wyatt PA PA cp Shantanu Cain MD MD tw4 Anuj Maldonado RN RN mg2 Corrections: (The following items were deleted from the chart) 04:57 04:56 10/04/2019 04:56 Discharged to Home. Impression: Esophagitis; Gastritis, tw4 unspecified, without bleeding. Condition is Stable. Forms are Medication Reconciliation Form, Thank You Letter, Antibiotic Education, Prescription Opioid Use. Follow up: Private Physician; When: Upon discharge from the Emergency Department; Reason: Recheck today's complaints, Continuance of care, Re-evaluation by your physician. Problem is new. Symptoms have improved. tw4 05:07 04:57 10/04/2019 04:56 Discharged to Home. Impression: Esophagitis; Gastritis, mg2 unspecified, without bleeding. Condition is Stable. Discharge Instructions: Esophagitis, Gastritis, Adult. Prescriptions for Carafate 100 mg/mL Oral suspension - take 20 milliliter by ORAL route once daily; 200 milliliter, Bentyl 20 mg Oral Tablet - take 1 tablet by ORAL route every 6 hours As needed; 20 tablet, Protonix 40 mg Oral Tablet - take 1 tablet by ORAL route once daily; 30 tablet, Zofran 4 mg Oral Tablet - take 1 tablet by ORAL route every 12 hours As needed; 6 tablet. and Forms are Medication Reconciliation Form, Thank You Letter, Antibiotic Education, Prescription Opioid Use. Follow up: Private Physician; When: Upon discharge from the Emergency Department; Reason: Recheck today's complaints, Continuance of care, Re-evaluation by your physician. Follow up: Hakeem Hector; When: 1 week; Reason: Recheck today's complaints, Continuance of care, Re-evaluation by your physician. Follow up: Jeffrey Macias; When: 1 week; Reason: Recheck today's complaints, Continuance of care, Re-evaluation by your physician. Follow up: Charlette Smith; When: 1 week; Reason: Recheck today's complaints, Continuance of care, Re-evaluation by your physician. Problem is new. Symptoms have improved. tw4
[2019-10-04 05:20] VITALS: O2SAT 100
[2019-10-04 05:22] VITALS: BP 150/102; TEMP 98
--- NOTE | 2019-10-04 07:58 | EKG ---
Test Date: 2019-10-04 Test Time: 02:05:02 Gear Straightener: MEASUREMENT RESULTS: Intervals: Rate: 101 OR: 172 QRSD: 82 QT: 360 QTc: 466 [place]: P: 68 OR: 172 QRS: 69 T: 54 INTERPRETIVE STATEMENTS: Sinus tachycardia Otherwise normal ECG Compared to ECG 05/23/2019 12:13:42 Sinus bradycardia no longer present Electronically Signed On 10-04-19 07:58:09 CDT by Zay Fernández
--- NOTE | 2019-10-04 09:55 | RAD REPORT ---
EXAM DESCRIPTION: CT Abdomen and Pelvis With Intravenous Contrast CLINICAL HISTORY: The patient is 44 years old and is Male; epigastric/substernal pain TECHNIQUE: Axial computed tomography images of the abdomen and pelvis with intravenous contrast. S agittal and coronal reformatted images were created and reviewed. This CT exam was performed using one or more of the following dose reduction techniques: automated exposure control, adjustment of t he mA and/or kV according to patient size, and/or use of iterative reconstruction technique. COMPARISON: CT abdomen and pelvis with contrast December 03, 2018. FINDINGS: Lung bases: Unremarkable. No mass. No consolidation. ABDOMEN: Liver: Unremarkable. No mass. Gallbladder and bile ducts: Unremarkable. No calcified stones. No ductal dilation. Pancreas: No findings to suggest acute pancreatitis. No mass visualized. No ductal dilation. Spleen: Unremarkable. No splenomegaly. Adrenals: 1.5 cm left adrenal lesion again noted, incompletely characterized. This is unchanged i n size compared with December 03, 2018. Kidneys and ureters: Simple renal cysts, largest measuring 1.8 cm on the right. Stomach and bowel: Previous rectal resection/anastomosis. Colonic diverticulosis. There is wall thickening in the pylorus and proximal duodenum. Fat stranding adjacent to the duodenum and pancreatic head. No bowel dilatation or obstruction. PELVIS: Appendix: The visualized appendix is normal. No pericecal inflammation to suggest acute appendic itis. Bladder: Unremarkable. No mass. Reproductive: Mild prostate gland enlargement. ABDOMEN and PELVIS: Intraperitoneal space: Unremarkable. No free air. No significant fluid collection. Bones/joints: No acute fracture visualized. No dislocation. Soft tissues: Unremarkable. Vasculature: Unremarkable. No abdominal aortic aneurysm. Lymph nodes: Borderline enlarged periportal and portacaval lymph nodes. IMPRESSION: 1. Differential diagnosis includes duodenitis/ulcer disease and acute pancreatitis with reactive inf lammation of the duodenum. 2. Previous rectal resection/anastomosis. 3. Colonic diverticulosis. 4. 1.5 cm left adrenal lesion again noted, incompletely characterized. This is unchanged in size co mpared with December 03, 2018. 5. Mild prostate gland enlargement. Electronically signed by: Kaitlin Loco MD 10/04/2019 4:21 AM CDT Due to temporary technical issues with the PACS/Fluency reporting system, reports are being signed by the in house radiologist as a courtesy to ensure prompt reporting. The interpreting radiologist is f josely responsible for the content of the report.
--- NOTE | 2019-10-04 10:58 | RAD REPORT ---
EXAM DESCRIPTION: RAD - Chest Single View - 10/04/2019 2:31 am CLINICAL HISTORY: CHEST PAIN Chest pain. COMPARISON: Chest Single View dated 05/23/2019; Chest Pa And Lat (2 Views) dated 09/10/2016; Chest Si ngle View dated 01/18/2016 FINDINGS: Portable technique limits examination quality. The lungs are grossly clear. The heart is normal in size. No displaced fractures. IMPRESSION: No acute intrathoracic process suspected.
== END 2019-10-04 05:07 | disposition home or self-care (01) ==
LOC: ER 01:36
DX: K20.9 Esophagitis, unspecified (principal); K29.70 Gastritis, unspecified, without bleeding; Z72.0 Tobacco use
CPT/HCPCS: 36415; 71045; 74177; 80048; 80076; 83690; 83735; 83880; 84484; 85025; 85610; 93005; 96361; 96374; 96375; 99284; C9113; J2270; J2405; J7030; Q9967

== ENCOUNTER 2020-11-26 17:03 | Emergency (ER) | payer BC, SELFPAY ==
--- OUTSIDE RECORDS SUMMARY | 2020-11-26 17:07 | XMS REPORT | Continuity of Care Document ---
:1975 Author Organization [facility] t Address [address] [place] [address] Care Team Providers Name Role Phone SHONDA BRAUN Attending Clinician Unavailable SHONDA BRAUN Admitting Clinician Unavailable Payers Payer Name Policy Type Policy Number Effective Date Expiration Date S ource Problems Condition Condition Condition Status Onset Resolution Last Treating Co mments Source Name Details Category Date Date Treatment Clinician Date Gastroduod Gastroduod Disease Active C [facility] Allergies, Adverse Reactions, Alerts Allergy Allergy Status Severity Reaction(s) Onset Inactive Treating Comm ents Source Name Type Date Date Clinician No Known DA Active [facility] Allergie 06-14 [facility] 00:00: Lesley [address] [place] [address] Social History Social Habit Start Date Stop Date Quantity Comments Source History of tobacco Cigarette Smoker [facility] use [facility] Sex Assigned At [facility] Cigarettes smoked 2018-12-05 2018-12-05 [facility] - current (pack per 00:00:00 00:00:00 [facility] Center day) - Reported Tobacco use and 2018-12-05 2018-12-05 Never used [facility] - exposure 00:00:00 00:00:00 [facility] Smoking Status Start Date Stop Date Source Current every day smoker 2018-12-05 00:00:00 [facility] Medications Ordered Filled Start Stop Current Ordering Indication Dosage Frequency Signature Comments Components Source Medication Medication Date Date Medication? Clinician (SIG) Name Name acetaminoph 2019- No 650mg Take [address] [facility] 12-08-22 tablets [facility] - (TYLENOL) 00:00: 23:59 (650 mg Medi monalisa 325 MG 00 :00 total) by Center tablet mouth every 4 (four) hours as needed for up to 360 days. Procedures This patient has no known procedures. Plan of Care Planned Activity Planned Date Details Comments Source Future Scheduled 2021-12-[address] [facility] Test 00:[facility]:00 (procedure) [code = Medical Center [id number]] Future Scheduled 2020-02-12 INFLUENZA VACCINE (#1) [facility] Test 00:00:00 [code = INFLUENZA Medical Ce nter VACCINE (#1)] Future Scheduled 1981-09-[address] [facility] - Test 00:00:00 0-64 YRS (1 of 1 - Medical C enter PPSV23) [code = PNEUMOCOCCAL VACCINE 0-64 YRS (1 of 1 - PPSV23)] Results Test Description Test Time Test Comments Results Result Comments Source LIPASE 2018-12-07 07:30:00 Test Item Value Reference Range Interpretation Comme nts LIPASE (BEAKER) (test code = 749) 238 U/L 8-78 H TISSUE [id number] 08:54:00Surgical Pathology Report Case: [id number] Authorizing Provider: Stefanie Maya MD Collected: 12/05/2018 0933 Ordering Location: [address] Received: 12/05/2018 1350 Service Pathologist: Christy Perdomo MD Specimen: Biopsy, Gastric, Gastric/antrum biopsy A. STOMACH, ANTRUM, BIOPSY: - BODY/TRANSITIONAL MUCOSA WITH NO SIGNIFICANT DIAGNOSTIC ABNORMALITY - NEGATIVE FOR HELICOBACTER PYLORI ORGANISMS BY WARTHIN STARRY STAIN - NEGATIVE FOR INTESTINAL METAPLASIA, DYSPLASIA, MALIGNANCY Signing Pathologist Direct Phone Line: [phone] signed by Christy Perdomo MD on 12/06/2018 at 8:54 [id number], presence of unspecified bleedingGastric antrum biopsyThe specimen [...] evaluated Immunohistochemistry technical testing was performed at [facility] Pathology Laboratory where it was developed and [...] to perform high complexity clinical laboratory testing.LIPID [id number] 06:14:00 Test Item Value Reference Range Interpretation Comments TRIGLYCERIDES (BEAKER) (test code = 106 mg/dL 540) CHOLESTEROL (BEAKER) (test code = 102 mg/dL 631) HDL CHOLESTEROL (BEAKER) (test code 14 mg/dL = 976) LDL CHOLESTEROL CALCULATED (BEAKER) 67 mg/dL (test code = 633) Triglyceride Reference Range: Low Risk <150 Borderline 150-199 High Risk 200-499 Very High Risk >=500Cholesterol Reference Range: Low Risk <200 Borderline 200-239 High Risk >240HDL Cholesterol Reference Range: Low Risk >=60 High Risk <40LDL Cholesterol Reference Range: Optimal <100 Near Optimal 100-129 Borderline 130-159 High 160-189 Very High >=190BASIC METABOLIC [id number] 06:14:00 Test Item Value Reference Range Interpretation Comments SODIUM (BEAKER) 131 meq/L 136-145 L (test code = 381) POTASSIUM (BEAKER) 3.9 meq/L 3.5-5.1 (test code = 379) CHLORIDE (BEAKER) 103 meq/L 98-107 (test code = 382) CO2 (BEAKER) (test 19 meq/L 22-29 L code = 355) BLOOD UREA NITROGEN 7 mg/dL 7-21 (BEAKER) (test code = 354) CREATININE (BEAKER) 0.62 mg/dL 0.57-1.25 (test code = 358) GLUCOSE RANDOM 78 mg/dL 70-105 (BEAKER) (test code = 652) CALCIUM (BEAKER) 8.4 mg/dL 8.4-10.2 (test code = 697) EGFR (BEAKER) (test 142 mL/min/1.73 ESTIM ATED GFR IS code = 1092) sq m NOT ACCURATE CREATININE CLEARANCE IN PREDICTING GLOMERULAR FILTRATION RATE . ESTIMATED GFR I S NOT APPLICABLE FOR DIALYSIS PATIEN TS. HEPATIC FUNCTION [id number] 06:14:00 Test Item Value Reference Range Interpretation Comments TOTAL PROTEIN (BEAKER) (test code = 6.5 gm/dL 6.0-8.3 770) ALBUMIN (BEAKER) (test code = 1145) 2.9 g/dL 3.5-5.0 L BILIRUBIN TOTAL (BEAKER) (test code 0.3 mg/dL 0.2-1.2 = 377) BILIRUBIN DIRECT (BEAKER) (test 0.2 mg/dL 0.1-0.5 code = 706) ALKALINE PHOSPHATASE (BEAKER) (test 54 U/L 40-150 code = 346) AST (SGOT) (BEAKER) (test code = 15 U/L 5-34 353) ALT (SGPT) (BEAKER) (test code = 8 U/L 6-55 347) CBC W/PLT COUNT & AUTO [id number] 05:29:00 Test Item Value Reference Range Interpretation Comments WHITE BLOOD CELL COUNT (BEAKER) 4.6 K/ L 3.5-10.5 (test code = 775) RED BLOOD CELL COUNT (BEAKER) 4.07 M/ L 4.63-6.08 L (test code = 761) HEMOGLOBIN (BEAKER) (test code = 12.5 GM/DL 13.7-17.5 L 410) HEMATOCRIT (BEAKER) (test code = 38.6 % 40.1-51.0 L 411) MEAN CORPUSCULAR VOLUME (BEAKER) 94.8 fL 79.0-92.2 H (test code = 753) MEAN CORPUSCULAR HEMOGLOBIN 30.7 pg 25.7-32.2 (BEAKER) (test code = 751) MEAN CORPUSCULAR HEMOGLOBIN CONC 32.4 GM/DL 32.3-36.5 (BEAKER) (test code = 752) RED CELL DISTRIBUTION WIDTH 14.2 % 11.6-14.4 (BEAKER) (test code = 412) PLATELET COUNT (BEAKER) (test 174 K/CU MM 150-450 code = 756) MEAN PLATELET VOLUME (BEAKER) 11.9 fL 9.4-12.4 (test code = 754) NUCLEATED RED BLOOD CELLS 0 /100 WBC 0-0 (BEAKER) (test code = 413) NEUTROPHILS RELATIVE PERCENT 69 % (BEAKER) (test code = 429) LYMPHOCYTES RELATIVE PERCENT 20 % (BEAKER) (test code = 430) MONOCYTES RELATIVE PERCENT 11 % (BEAKER) (test code = 431) EOSINOPHILS RELATIVE PERCENT 1 % (BEAKER) (test code = 432) BASOPHILS RELATIVE PERCENT 0 % (BEAKER) (test code = 437) NEUTROPHILS ABSOLUTE COUNT 3.13 K/ L 1.78-5.38 (BEAKER) (test code = 670) LYMPHOCYTES ABSOLUTE COUNT 0.89 K/ L 1.32-3.57 L (BEAKER) (test code = 414) MONOCYTES ABSOLUTE COUNT (BEAKER) 0.48 K/ L 0.30-0.82 (test code = 415) EOSINOPHILS ABSOLUTE COUNT 0.03 K/ L 0.04-0.54 L (BEAKER) (test code = 416) BASOPHILS ABSOLUTE COUNT (BEAKER) 0.02 K/ L 0.01-0.08 (test code = 417) IMMATURE GRANULOCYTES-RELATIVE 0 % 0-1 PERCENT (BEAKER) (test code = 2801) LIPID [id number] 06:19:00 Test Item Value Reference Range Interpretation Comments TRIGLYCERIDES (BEAKER) (test code = 95 mg/dL 540) CHOLESTEROL (BEAKER) (test code = 98 mg/dL 631) HDL CHOLESTEROL (BEAKER) (test code 14 mg/dL = 976) LDL CHOLESTEROL CALCULATED (BEAKER) 65 mg/dL (test code = 633) Triglyceride Reference Range: Low Risk <150 Borderline 150-199 High Risk 200-499 Very High Risk >=500Cholesterol Reference Range: Low Risk <200 Borderline 200-239 High Risk >240HDL Cholesterol Reference Range: Low Risk >=60 High Risk <40LDL Cholesterol Reference Range: Optimal <100 Near Optimal 100-129 Borderline 130-159 High 160-189 Very High >=190BASIC METABOLIC [id number] 06:19:00 Test Item Value Reference Range Interpretation Comments SODIUM (BEAKER) 131 meq/L 136-145 L (test code = 381) POTASSIUM (BEAKER) 4.0 meq/L 3.5-5.1 (test code = 379) CHLORIDE (BEAKER) 100 meq/L 98-107 (test code = 382) CO2 (BEAKER) (test 23 meq/L 22-29 code = 355) BLOOD UREA NITROGEN 10 mg/dL 7-21 (BEAKER) (test code = 354) CREATININE (BEAKER) 0.61 mg/dL 0.57-1.25 (test code = 358) GLUCOSE RANDOM 86 mg/dL 70-105 (BEAKER) (test code = 652) CALCIUM (BEAKER) 8.6 mg/dL 8.4-10.2 (test code = 697) EGFR (BEAKER) (test 144 mL/min/1.73 ESTIM ATED GFR IS code = 1092) sq m NOT ACCURATE CREATININE CLEARANCE IN PREDICTING GLOMERULAR FILTRATION RATE . ESTIMATED GFR I S NOT APPLICABLE FOR DIALYSIS PATIEN TS. HEPATIC FUNCTION [id number] 06:19:00 Test Item Value Reference Range Interpretation Comments TOTAL PROTEIN (BEAKER) (test code = 6.6 gm/dL 6.0-8.3 770) ALBUMIN (BEAKER) (test code = 1145) 3.0 g/dL 3.5-5.0 L BILIRUBIN TOTAL (BEAKER) (test code 0.5 mg/dL 0.2-1.2 = 377) BILIRUBIN DIRECT (BEAKER) (test 0.4 mg/dL 0.1-0.5 code = 706) ALKALINE PHOSPHATASE (BEAKER) (test 51 U/L 40-150 code = 346) AST (SGOT) (BEAKER) (test code = 10 U/L 5-34 353) ALT (SGPT) (BEAKER) (test code = 7 U/L 6-55 347) CBC W/PLT COUNT & AUTO [id number] 05:47:00 Test Item Value Reference Range Interpretation Comments WHITE BLOOD CELL COUNT (BEAKER) 6.1 K/ L 3.5-10.5 (test code = 775) RED BLOOD CELL COUNT (BEAKER) 4.05 M/ L 4.63-6.08 L (test code = 761) HEMOGLOBIN (BEAKER) (test code = 12.3 GM/DL 13.7-17.5 L 410) HEMATOCRIT (BEAKER) (test code = 37.9 % 40.1-51.0 L 411) MEAN CORPUSCULAR VOLUME (BEAKER) 93.6 fL 79.0-92.2 H (test code = 753) MEAN CORPUSCULAR HEMOGLOBIN 30.4 pg 25.7-32.2 (BEAKER) (test code = 751) MEAN CORPUSCULAR HEMOGLOBIN CONC 32.5 GM/DL 32.3-36.5 (BEAKER) (test code = 752) RED CELL DISTRIBUTION WIDTH 14.5 % 11.6-14.4 H (BEAKER) (test code = 412) PLATELET COUNT (BEAKER) (test 162 K/CU MM 150-450 code = 756) MEAN PLATELET VOLUME (BEAKER) 11.9 fL 9.4-12.4 (test code = 754) NUCLEATED RED BLOOD CELLS 0 /100 WBC 0-0 (BEAKER) (test code = 413) NEUTROPHILS RELATIVE PERCENT 73 % (BEAKER) (test code = 429) LYMPHOCYTES RELATIVE PERCENT 17 % (BEAKER) (test code = 430) MONOCYTES RELATIVE PERCENT 8 % (BEAKER) (test code = 431) EOSINOPHILS RELATIVE PERCENT 1 % (BEAKER) (test code = 432) BASOPHILS RELATIVE PERCENT 1 % (BEAKER) (test code = 437) NEUTROPHILS ABSOLUTE COUNT 4.40 K/ L 1.78-5.38 (BEAKER) (test code = 670) LYMPHOCYTES ABSOLUTE COUNT 1.05 K/ L 1.32-3.57 L (BEAKER) (test code = 414) MONOCYTES ABSOLUTE COUNT (BEAKER) 0.51 K/ L 0.30-0.82 (test code = 415) EOSINOPHILS ABSOLUTE COUNT 0.03 K/ L 0.04-0.54 L (BEAKER) (test code = 416) BASOPHILS ABSOLUTE COUNT (BEAKER) 0.03 K/ L 0.01-0.08 (test code = 417) IMMATURE GRANULOCYTES-RELATIVE 1 % 0-1 PERCENT (BEAKER) (test code = 2801) U/S, ABDOMINAL, [id number] 22:07:00Abdomen limited area? Add comment if clarification [...] MartiniMDReport Verified Date/Time: 12/04/2018 22:07:39 Reading Location: [address] Consult Reading Room HEMOGLOBIN [id number] 09:50:00 Test Item Value Reference Range Interpretation Comments HEMOGLOBIN A1C (BEAKER) (test code = 5.0 % 4.3-6.1 368) LIPID [id number] 06:14:00 Test Item Value Reference Range Interpretation Comments TRIGLYCERIDES (BEAKER) (test code = 109 mg/dL 540) CHOLESTEROL (BEAKER) (test code = 107 mg/dL 631) HDL CHOLESTEROL (BEAKER) (test code 17 mg/dL = 976) LDL CHOLESTEROL CALCULATED (BEAKER) 68 mg/dL (test code = 633) Triglyceride Reference Range: Low Risk <150 Borderline 150-199 High Risk 200-499 Very High Risk >=500Cholesterol Reference Range: Low Risk <200 Borderline 200-239 High Risk >240HDL Cholesterol Reference Range: Low Risk >=60 High Risk <40LDL Cholesterol Reference Range: Optimal <100 Near Optimal 100-129 Borderline 130-159 High 160-189 Very High >=190BASIC METABOLIC [id number] 06:14:00 Test Item Value Reference Range Interpretation Comments SODIUM (BEAKER) 131 meq/L 136-145 L (test code = 381) POTASSIUM (BEAKER) 4.1 meq/L 3.5-5.1 (test code = 379) CHLORIDE (BEAKER) 99 meq/L 98-107 (test code = 382) CO2 (BEAKER) (test 21 meq/L 22-29 L code = 355) BLOOD UREA NITROGEN 15 mg/dL 7-21 (BEAKER) (test code = 354) CREATININE (BEAKER) 0.65 mg/dL 0.57-1.25 (test code = 358) GLUCOSE RANDOM 76 mg/dL 70-105 (BEAKER) (test code = 652) CALCIUM (BEAKER) 8.9 mg/dL 8.4-10.2 (test code = 697) EGFR (BEAKER) (test 134 mL/min/1.73 ESTIM ATED GFR IS code = 1092) sq m NOT ACCURATE CREATININE CLEARANCE IN PREDICTING GLOMERULAR FILTRATION RATE . ESTIMATED GFR I S NOT APPLICABLE FOR DIALYSIS PATIEN TS. HEPATIC FUNCTION [id number] 06:14:00 Test Item Value Reference Range Interpretation Comments TOTAL PROTEIN (BEAKER) (test code = 7.3 gm/dL 6.0-8.3 770) ALBUMIN (BEAKER) (test code = 1145) 3.4 g/dL 3.5-5.0 L BILIRUBIN TOTAL (BEAKER) (test code 0.6 mg/dL 0.2-1.2 = 377) BILIRUBIN DIRECT (BEAKER) (test 0.4 mg/dL 0.1-0.5 code = 706) ALKALINE PHOSPHATASE (BEAKER) (test 63 U/L 40-150 code = 346) AST (SGOT) (BEAKER) (test code = 11 U/L 5-34 353) ALT (SGPT) (BEAKER) (test code = 12 U/L 6-55 347) [id number] 06:14:00 Test Item Value Reference Range Interpretation Comments LIPASE (BEAKER) (test code = 749) 279 U/L 8-78 H CBC W/PLT COUNT & AUTO [id number] 05:59:00 Test Item Value Reference Range Interpretation Comments WHITE BLOOD CELL COUNT (BEAKER) 10.0 K/ L 3.5-10.5 (test code = 775) RED BLOOD CELL COUNT (BEAKER) 4.48 M/ L 4.63-6.08 L (test code = 761) HEMOGLOBIN (BEAKER) (test code = 13.8 GM/DL 13.7-17.5 410) HEMATOCRIT (BEAKER) (test code = 41.8 % 40.1-51.0 411) MEAN CORPUSCULAR VOLUME (BEAKER) 93.3 fL 79.0-92.2 H (test code = 753) MEAN CORPUSCULAR HEMOGLOBIN 30.8 pg 25.7-32.2 (BEAKER) (test code = 751) MEAN CORPUSCULAR HEMOGLOBIN CONC 33.0 GM/DL 32.3-36.5 (BEAKER) (test code = 752) RED CELL DISTRIBUTION WIDTH 14.7 % 11.6-14.4 H (BEAKER) (test code = 412) PLATELET COUNT (BEAKER) (test 207 K/CU MM 150-450 code = 756) MEAN PLATELET VOLUME (BEAKER) 12.5 fL 9.4-12.4 H (test code = 754) NUCLEATED RED BLOOD CELLS 0 /100 WBC 0-0 (BEAKER) (test code = 413) NEUTROPHILS RELATIVE PERCENT 79 % (BEAKER) (test code = 429) LYMPHOCYTES RELATIVE PERCENT 14 % (BEAKER) (test code = 430) MONOCYTES RELATIVE PERCENT 7 % (BEAKER) (test code = 431) EOSINOPHILS RELATIVE PERCENT 0 % (BEAKER) (test code = 432) BASOPHILS RELATIVE PERCENT 0 % (BEAKER) (test code = 437) NEUTROPHILS ABSOLUTE COUNT 7.84 K/ L 1.78-5.38 H (BEAKER) (test code = 670) LYMPHOCYTES ABSOLUTE COUNT 1.36 K/ L 1.32-3.57 (BEAKER) (test code = 414) MONOCYTES ABSOLUTE COUNT (BEAKER) 0.66 K/ L 0.30-0.82 (test code = 415) EOSINOPHILS ABSOLUTE COUNT 0.04 K/ L 0.04-0.54 (BEAKER) (test code = 416) BASOPHILS ABSOLUTE COUNT (BEAKER) 0.04 K/ L 0.01-0.08 (test code = 417) IMMATURE GRANULOCYTES-RELATIVE 0 % 0-1 PERCENT (BEAKER) (test code = 3981)
[2020-11-26 18:11] LABS: Urine Blood Negative (Negative); Urine Glucose Negative (Negative); Urine Protein Negative (Negative); Urine Specific Gravity >=1.030 (1.005-1.030)
[2020-11-26] MEDS ORDERED: HYDROCODONE/APAP 10/325 TAB ONE (18:36)
--- NOTE | 2020-11-26 19:25 | RAD REPORT ---
EXAM DESCRIPTION: US - Scrotum Testicles - 11/26/2020 6:51 pm CLINICAL HISTORY: scrotal pain Right scrotal pain COMPARISON: No comparisons FINDINGS: The right testicle 5.1 x 3.6 x 2.9 cm. There is a poorly defined hypoechoic area in the in ferior aspect of the right testicle. No testicular torsion. The left testicle 5.6 x 3.9 x 2.6 cm. No intratesticular masses or evidence of testicular torsion. Both epididymides are normal in size and appearance. No pathologic fluid collections. IMPRESSION: Poorly defined hypoechoic area in the right testicle inferiorly could be related to prio r infection/ inflammation or neoplasm. Advise urological assessment. No evidence of testicular torsion.
--- NOTE | 2020-11-26 20:41 | ER ---
Nurse's Notes [facility] Name: Kevin Chaudhary Age: 45 yrs Sex: Male : 1975 Arrival Date: 11/26/2020 Time: 17:13 Bed 26 [facility] MD: Diagnosis: Epididymitis Presentation: 11/26 17:28 Method Of Arrival: Ambulatory ca1 17:31 Chief complaint: Patient states: R testicular pain x 3 days. Pain aggravated with ca1 movement. Denies swelling. HX of abdominal hernias. Coronavirus screen: Client denies travel out of the [place] in the last 14 days. At this time, the client does not indicate any symptoms associated with coronavirus-19. Ebola Screen: Patient negative for fever greater than or equal to 101.5 degrees Fahrenheit, and additional compatible Ebola Virus Disease symptoms Patient denies exposure to infectious person. Patient denies travel to an Ebola-affected area in the 21 days before illness onset. No symptoms or risks identified at this time. Initial Sepsis Screen: Does the patient meet any 2 criteria? No. Patient's initial sepsis screen is negative. Does the patient have a suspected source of infection? No. Patient's initial sepsis screen is negative. Risk Assessment: Do you want to hurt yourself or someone else? Patient reports no desire to harm self or others. Onset of symptoms was November 26, 2020. 17:31 Acuity: NIHARIKA 2 ca1 Historical: - Allergies: 17:32 No Known Allergies; ca1 - PMHx: 17:32 Diverticulitis; GERD; Pancreatitis; ca1 - PSHx: 17:32 Colonostomy reversal; Hernia repair with mesh; ca1 - Immunization history:: Client reports having NOT received the Covid vaccine. Flu vaccine is not up to date. - Social history:: Smoking status: Patient reports the use of cigarette tobacco products, smokes one pack cigarettes per day. Screenin:00 Abuse screen: Denies threats or abuse. Denies injuries from another. Nutritional kg screening: No deficits noted. Tuberculosis screening: No symptoms or risk factors identified. Fall Risk None identified. No fall in past 12 months (0 pts). No secondary diagnosis (0 pts). No IV (0 pts). Ambulatory Aid- None/Bed Rest/Nurse Assist (0 pts). Gait- Normal/Bed Rest/Wheelchair (0 pts) Mental Status- Oriented to own ability (0 pts). Total Gama Fall Scale indicates No Risk (0-24 pts). Assessment: 17:57 General: Appears in no apparent distress. Behavior is calm, cooperative, appropriate kg for age, quiet. Pain: Complains of pain in Right testicle Pain does not radiate. Pain currently is 6 out of 10 on a pain scale. at worst was 10 out of 10 on a pain scale. level that patient reports is acceptable is 3 out of 10 on a pain scale. Quality of pain is described as aching, sharp, stabbing, squeezing, Pain began 2-3 days ago. Neuro: No deficits noted. Cardiovascular: No deficits noted. Respiratory: No deficits noted. GI: No deficits noted. : Reports Pt stated, " I have pain in my right testicle and it looks like its not hanging as low as it normally does. It looks like its kind of stuck up there.". EENT: No deficits noted. Derm: No deficits noted. Musculoskeletal: No deficits noted. Vital Signs: 17:31 BP 148 / 108; Pulse 108; Resp 18 S; Temp 98.1(TE); Pulse Ox 95% on R/A; Pain 8/10; ca1 18:00 BP 134 / 88; Pulse 91; Resp 20; Pulse Ox 97% on R/A; kg 19:00 BP 143 / 94; Pulse 79; Resp 20; Pulse Ox 94% on R/A; kg 20:00 BP 130 / 98; Pulse 74; Resp 20; Pulse Ox 94% on R/A; kg 20:30 BP 130 / 93; Pulse 75; Resp 20; Pulse Ox 96% on R/A; kg ED Course: 17:13 Patient arrived in ED. am2 17:19 Fidencio Loco MD is Attending Physician. kdr 17:32 Triage completed. ca1 17:32 Arm band placed on right wrist. ca1 17:54 Rebeca Gilliland, TRAY is Primary Nurse. kg 18:00 No provider procedures requiring assistance completed. kg 18:01 Patient has correct armband on for positive identification. Bed in low position. Call kg light in reach. Side rails up X2. 18:51 US Scrotum Testicles In Process Unspecified. EDMS 19:04 Attending Physician role handed off by Fidencio Loco MD rn 19:04 Hector Ta MD is Attending Physician. rn 21:10 Patient did not have IV access during this emergency room visit. kg Administered Medications: 18:10 Drug: Argyle (HYDROcodone-acetaminophen) 10 mg-325 mg 1 tabs Route: PO; kg 21:10 Follow up: Response: No adverse reaction; Pain is decreased kg 20:47 Drug: LevaQUIN (levofloxacin) 750 mg Route: PO; kg 21:10 Follow up: Response: No adverse reaction kg Outcome: 20:41 Discharge ordered by MD. rn 21:09 Discharged to home ambulatory, with significant other. kg 21:09 Condition: improved 21:09 Discharge instructions given to patient, significant other, Instructed on discharge instructions, follow up and referral plans. Demonstrated understanding of instructions, follow-up care, medications, Prescriptions given X 2. 21:10 Patient left the ED. kg Signatures: Dispatcher [employer] EDMS Fidencio Loco MD MD kdr Nieto, Roman, MD MD rn Moreno, Amanda am2 Zari Gore RN RN ca1 Rebeca Gilliland RN RN kg
--- NOTE | 2020-11-26 20:42 | EDPHYS ---
Physician Documentation [facility] Name: Kevin Chaudhary Age: 45 yrs Sex: Male : 1975 Arrival Date: 11/26/2020 Time: 17:13 Bed 26 Private MD: ED Physician Hector Ta HPI: 11/26 18:51 This 45 yrs old Male presents to ER via Ambulatory with complaints of kdr Testicular Pain. 18:51 The patient presents with scrotal pain, of the right side, without swelling, kdr tenderness, that is moderate, of the right testicle. Onset: The symptoms/episode began/occurred gradually, 3 day(s) ago. Modifying factors: The symptoms are alleviated by remaining still, the symptoms are aggravated by movement, pressure, urinating. Associated signs and symptoms: The patient has no apparent associated signs or symptoms. Severity of symptoms: At their worst the symptoms were mild, moderate, just prior to arrival, in the emergency department the symptoms are unchanged. The patient has not experienced similar symptoms in the past. The patient has not recently seen a physician. Historical: - Allergies: 17:32 No Known Allergies; ca1 - PMHx: 17:32 Diverticulitis; GERD; Pancreatitis; ca1 - PSHx: 17:32 Colonostomy reversal; Hernia repair with mesh; ca1 - Immunization history:: Client reports having NOT received the Covid vaccine. Flu vaccine is not up to date. - Social history:: Smoking status: Patient reports the use of cigarette tobacco products, smokes one pack cigarettes per day. ROS: 18:51 Constitutional: Negative for fever, chills, and weight loss, Eyes: Negative for injury, kdr pain, redness, and discharge, ENT: Negative for injury, pain, and discharge, Neck: Negative for injury, pain, and swelling, Cardiovascular: Negative for chest pain, palpitations, and edema, Respiratory: Negative for shortness of breath, cough, wheezing, and pleuritic chest pain, Abdomen/GI: Negative for abdominal pain, nausea, vomiting, diarrhea, and constipation, Back: Negative for injury and pain, MS/Extremity: Negative for injury and deformity, Skin: Negative for injury, rash, and discoloration, Neuro: Negative for headache, weakness, numbness, tingling, and seizure activity. Psych: Negative for depression, anxiety, suicide ideation, homicidal ideation, and hallucinations, Allergy/Immunology: Negative for hives, rash, and allergies, Endocrine: Negative for neck swelling, polydipsia, polyuria, polyphagia, and marked weight changes, Hematologic/Lymphatic: Negative for swollen nodes, abnormal bleeding, and unusual bruising. 18:51 : Positive for testicular pain Negative for urinary frequency, small amounts, hematuria, pelvic pain, flank pain, burning with urination, difficulty urinating, bladder incontinence, foul smelling urine, penile discharge, penile pain. Exam: 18:51 Constitutional: This is a well developed, well nourished patient who is awake, alert, kdr and in no acute distress. Head/Face: Normocephalic, atraumatic. Eyes: Pupils equal round and reactive to light, extra-ocular motions intact. Lids and lashes normal. Conjunctiva and sclera are non-icteric and not injected. Cornea within normal limits. Periorbital areas with no swelling, redness, or edema. Back: No spinal tenderness. No costovertebral tenderness. Full range of motion. Skin: Warm, dry with normal turgor. Normal color with no rashes, no lesions, and no evidence of cellulitis. MS/ Extremity: Pulses equal, no cyanosis. Neurovascular intact. Full, normal range of motion. Neuro: Awake and alert, GCS 15, oriented to person, place, time, and situation. Cranial nerves II-XII grossly intact. Motor strength 5/5 in all extremities. Sensory grossly intact. Cerebellar exam normal. Normal gait. Psych: Awake, alert, with orientation to person, place and time. Behavior, mood, and affect are within normal limits. 18:51 : Male external genitalia: tenderness, of the right testicle is noted, that is mild. Vital Signs: 17:31 BP 148 / 108; Pulse 108; Resp 18 S; Temp 98.1(TE); Pulse Ox 95% on R/A; Pain 8/10; ca1 18:00 BP 134 / 88; Pulse 91; Resp 20; Pulse Ox 97% on R/A; kg 19:00 BP 143 / 94; Pulse 79; Resp 20; Pulse Ox 94% on R/A; kg 20:00 BP 130 / 98; Pulse 74; Resp 20; Pulse Ox 94% on R/A; kg 20:30 BP 130 / 93; Pulse 75; Resp 20; Pulse Ox 96% on R/A; kg MDM: 19:04 Patient medically screened. rn 20:39 Differential diagnosis: UTI, urethritis, epididymitis, testicular torsion. Data rn reviewed: vital signs, nurses notes, lab test result(s), radiologic studies, ultrasound, and as a result, I will discharge patient. Counseling: I had a detailed discussion with the patient and/or guardian regarding: the historical points, exam findings, and any diagnostic results supporting the discharge/admit diagnosis, lab results, radiology results, the need for outpatient follow up, to return to the emergency department if symptoms worsen or persist or if there are any questions or concerns that arise at home. Response to treatment: the patient's symptoms have markedly improved after treatment, and as a result, I will discharge patient. Special discussion: I discussed with the patient/guardian in detail that at this point there is no indication for admission to the hospital. It is understood, however, that if the symptoms persist or worsen the patient needs to return immediately for re-evaluation. Based on the history and exam findings, there is no indication for further emergent testing or inpatient evaluation. I discussed with the patient/guardian the need to see the urologist for further evaluation of the symptoms. ED course: U/S shows good flow, no u/s evidence of epididymitis, but unilateral testicular pain in male without trauma and good flow, with improvement of pain with elevation, likely early epididymitis. . 11/26 18:12 Order name: Urine Dipstick-Ancillary; Complete Time: 19:05 EDCO 11/26 17:19 Order name: US Scrotum Testicles; Complete Time: 19:30 kdr Administered Medications: 18:10 Drug: [place] (HYDROcodone-acetaminophen) 10 mg-325 mg 1 tabs Route: PO; kg 21:10 Follow up: Response: No adverse reaction; Pain is decreased kg 20:47 Drug: LevaQUIN (levofloxacin) 750 mg Route: PO; kg 21:10 Follow up: Response: No adverse reaction kg Disposition: 11/26/20 20:41 Discharged to Home. Impression: Epididymitis. - Condition is Stable. - Discharge Instructions: Epididymitis. - Prescriptions for Levaquin 750 mg Oral Tablet - take 1 tablet by ORAL route once daily for 10 days; 10 tablet. Tylenol- Codeine #3 300-30 mg Oral Tablet - take 1 tablet by ORAL route every 4-6 hours As needed; 15 tablet. - Medication Reconciliation Form, Thank You Letter, Antibiotic Education, Prescription Opioid Use, Work release form form. - Follow up: Private Physician; When: As needed; Reason: Recheck today's complaints, Re-evaluation by your physician. - Problem is new. - Symptoms have improved. Signatures: Dispatcher [employer] EDCO Fidencio Loco MD MD kdr Nieto, Roman, MD MD rn Acgiacomo, TRAY Hameed RN ca1 Rebeca Gilliland RN RN kg Corrections: (The following items were deleted from the chart) 21:10 20:41 11/26/2020 20:41 Discharged to Home. Impression: Epididymitis. Condition is kg Stable. Forms are Medication Reconciliation Form, Thank You Letter, Antibiotic Education, Prescription Opioid Use. Follow up: Private Physician; When: As needed; Reason: Recheck today's complaints, Re-evaluation by your physician. Problem is new. Symptoms have improved. rn
[2020-11-26] MEDS ORDERED: levoFLOXacin 750 MG TAB ONE (21:04)
[2020-11-26 21:27] VITALS: TEMP 98.1
[2020-11-26 21:33] VITALS: BP 130/93; O2SAT 96
== END 2020-11-26 21:10 | disposition home or self-care (01) ==
LOC: ER 17:03
DX: N45.1 Epididymitis (principal); F17.210 Nicotine dependence, cigarettes, uncomplicated
CPT/HCPCS: 76870; 81003

== ENCOUNTER 2020-12-01 12:12 | Emergency (ER) | payer BC ==
--- OUTSIDE RECORDS SUMMARY | 2020-12-01 12:16 | XMS REPORT | Continuity of Care Document ---
:1975 Author Organization [facility] t Address [address] [place] [address] Care Team Providers Name Role Phone SHONDA [...] [facility] Allergie 06-14 Corpus s 00:00: Lesley [address] [place] [address] Social History Social Habit Start Date Stop Date Quantity Comments Source History of tobacco Cigarette Smoker [facility] use [facility] Sex Assigned At [facility] Cigarettes smoked 2018-12-05 2018-12-05 [facility] - current (pack per 00:00:00 00:00:00 Medical Center day) - Reported Tobacco use and 2018-12-05 2018-12-05 Never used [facility] - exposure 00:00:00 00:00:00 [facility] Smoking Status Start Date Stop Date Source Current every day smoker 2018-12-05 00:00:00 [facility] Medications Ordered Filled Start Stop Current Ordering [...] Test 00:00:00 (procedure) [code = [facility] Center 18662052] Future Scheduled 2020-02-12 INFLUENZA VACCINE (#1) C [...] = 749) 238 U/L 8-78 H TISSUE [id number] 08:54:00Surgical Pathology Report Case: [id number] Authorizing Provider: Stefanie Maya MD Collected: 12/05/2018 0933 Ordering Location: [address] Received: 12/05/2018 1350 Service Pathologist: Christy Perdomo MD Specimen: Biopsy, Gastric, Gastric/antrum biopsy A. STOMACH, ANTRUM, BIOPSY: - BODY/TRANSITIONAL MUCOSA WITH NO SIGNIFICANT DIAGNOSTIC ABNORMALITY - NEGATIVE FOR HELICOBACTER PYLORI ORGANISMS BY WARTHIN STARRY STAIN - NEGATIVE FOR INTESTINAL METAPLASIA, DYSPLASIA, MALIGNANCY Signing Pathologist Direct Phone Line: [phone] signed by Christy Perdomo MD on 12/06/2018 at 8:54 [id number], presence of unspecified bleedingGastric antrum biopsyThe specimen [...] evaluated Immunohistochemistry technical testing was performed at [facility], Pathology Laboratory where it was developed [...] to perform high complexity clinical laboratory testing.LIPID [id number] 06:14:00 Test Item Value Reference Range Interpretation [...] 130-159 High 160-189 Very High >=190BASIC METABOLIC [id number] 06:14:00 Test Item Value Reference Range Interpretation [...] APPLICABLE FOR DIALYSIS PATIEN TS. HEPATIC FUNCTION [id number] 06:14:00 Test Item Value Reference Range Interpretation [...] 6-55 347) CBC W/PLT COUNT & AUTO [id number] 05:29:00 Test Item Value Reference Range Interpretation [...] PERCENT (BEAKER) (test code = 2801) LIPID [id number] 06:19:00 Test Item Value Reference Range Interpretation [...] 130-159 High 160-189 Very High >=190BASIC METABOLIC [id number] 06:19:00 Test Item Value Reference Range Interpretation [...] APPLICABLE FOR DIALYSIS PATIEN TS. HEPATIC FUNCTION [id number] 06:19:00 Test Item Value Reference Range Interpretation [...] 6-55 347) CBC W/PLT COUNT & AUTO [id number] 05:47:00 Test Item Value Reference Range Interpretation [...] (BEAKER) (test code = 2801) U/S, ABDOMINAL, [id number] 22:07:00Abdomen limited area? Add comment if clarification [...] MartiniMDReport Verified Date/Time: 12/04/2018 22:07:39 Reading Location: [address] Consult Reading Room HEMOGLOBIN [id number] 09:50:00 Test Item Value Reference Range Interpretation Comments HEMOGLOBIN A1C (BEAKER) (test code = 5.0 % 4.3-6.1 368) LIPID [id number] 06:14:00 Test Item Value Reference Range Interpretation [...] 130-159 High 160-189 Very High >=190BASIC METABOLIC [id number] 06:14:00 Test Item Value Reference Range Interpretation [...] APPLICABLE FOR DIALYSIS PATIEN TS. HEPATIC FUNCTION [id number] 06:14:00 Test Item Value Reference Range Interpretation [...] (test code = 12 U/L 6-55 347) [id number] 06:14:00 Test Item Value Reference Range Interpretation Comments LIPASE (BEAKER) (test code = 749) 279 U/L 8-78 H CBC W/PLT COUNT & AUTO [id number] 05:59:00 Test Item Value Reference Range Interpretation [...] % 0-1 PERCENT (BEAKER) (test code = 1461)
--- NOTE | 2020-12-01 13:51 | RAD REPORT ---
EXAM DESCRIPTION: US - Scrotum Testicles - 12/01/2020 1:18 pm CLINICAL HISTORY: SWELLING Pain and swelling COMPARISON: Scrotum Testicles dated 11/26/2020 FINDINGS: The right testicle 5.7 x 3.3 x 2.7 cm.. Irregular hypoechoic lesion is present in the with poorly defined margins. Again, this is quite concerning for a neoplastic process. No evidence of amy ticular torsion. The left testicle 5.1 x 4.7 x 2.6 cm. No intratesticular masses or evidence of testicular torsion. Both epididymides are normal in size and appearance. No pathologic fluid collections. IMPRESSION: Again noted is a poorly defined hypoechoic but heterogenous approximate 2 cm lesion with in the substance of the right testicle. This is quite worrisome for a neoplastic process. Urologic co nsultation would be recommended. No finding to indicate testicular torsion.
[2020-12-01] MEDS ORDERED: HYDROCODONE/APAP 10/325 TAB ONE (15:05)
[2020-12-01 15:17] LABS: Urine Blood Negative (Negative); Urine Glucose Negative (Negative); Urine Protein Negative (Negative); Urine pH 6.5 (5.0-7.0)
[2020-12-01 15:56] LABS: Urine Bacteria <20 /HPF (NONE SEEN); Urine RBC NONE SEEN /HPF (NONE SEEN)
--- NOTE | 2020-12-01 16:13 | ER ---
Nurse's Notes [facility] Name: Kevin Chaudhary Age: 45 yrs Sex: Male : 1975 Arrival Date: 12/01/2020 Time: 12:15 Bed 16 Private MD: Diagnosis: Testicular mass Presentation: 12/01 12:32 Chief complaint: Patient states: R testes pain for 1 week. Been on pain meds and ll1 antibiotics. Pain has risen higher, and noticed the R testicle swelling since Tuesday. More swelling today. Coronavirus screen: Client denies travel out of the [place] in the last 14 days. At this time, the client does not indicate any symptoms associated with coronavirus-19. Ebola Screen: Patient denies travel to an Ebola-affected area in the 21 days before illness onset. Initial Sepsis Screen: Does the patient meet any 2 criteria? No. Patient's initial sepsis screen is negative. Does the patient have a suspected source of infection? Yes: Other: testes swelling. Risk Assessment: Do you want to hurt yourself or someone else? Patient reports no desire to harm self or others. Onset of symptoms was November 24, 2020. 12:32 Method Of Arrival: Ambulatory ll1 12:32 Acuity: NIHARIKA 2 ll1 Historical: - Allergies: 12:35 No Known Allergies; ll1 - PMHx: 12:35 Diverticulitis; GERD; Pancreatitis; ll1 - PSHx: 12:35 Colonostomy reversal; Hernia repair with mesh; ll1 - Immunization history:: Flu vaccine is not up to date. - Social history:: Smoking status: Patient reports the use of cigarette tobacco products, smokes one pack cigarettes per day. Screenin:00 Abuse screen: Denies threats or abuse. Denies injuries from another. Nutritional jl7 screening: No deficits noted. Tuberculosis screening: No symptoms or risk factors identified. Fall Risk None identified. Assessment: 15:10 Reassessment: MARIA ELENA Erickson at bedside discussing results and POC. jl7 Vital Signs: 12:32 BP 142 / 95; Pulse 82; Resp 17; Temp 98.0; Pulse Ox 99% ; Weight 95.25 kg; Height 6 ft. ll1 0 in. (182.88 cm); Pain 8/10; 12:32 Body Mass Index 28.48 (95.25 kg, 182.88 cm) ll1 ED Course: 12:15 Patient arrived in ED. as 12:35 Triage completed. ll1 12:35 Arm band placed on. ll1 12:59 US Scrotum Testicles In Process Unspecified. EDMS 13:33 Dre Langford NP is PHCP. pm1 13:33 Luther Bourne MD is Attending Physician. pm1 13:47 Mana Christensen RN is Primary Nurse. jl7 14:00 Patient has correct armband on for positive identification. Bed in low position. Call jl7 light in reach. Side rails up X 1. 15:10 Urine collected: clean catch specimen, clear. jl7 15:25 No provider procedures requiring assistance completed. Patient did not have IV access jl7 during this emergency room visit. Administered Medications: 14:48 Drug: [place] (HYDROcodone-acetaminophen) 10 mg-325 mg 1 tabs Route: PO; jl7 15:30 Follow up: Response: No adverse reaction; Pain is decreased jl7 Outcome: 16:12 Discharge ordered by . pm1 16:18 Discharged to home ambulatory, with family. jl7 16:18 Condition: stable 16:18 Discharge instructions given to patient, family, Instructed on discharge instructions, follow up and referral plans. Demonstrated understanding of instructions, follow-up care. 16:18 Patient left the ED. jl7 Signatures: Dispatcher [employer] Emma An as Dre Langford NP PLATE MAKER pm1 Mana Christensen RN RN jl7 Hugh Alfonso RN RN ll1
--- NOTE | 2020-12-01 16:14 | EDPHYS ---
Physician Documentation [facility] Name: Kevin Chaudhary Age: 45 yrs Sex: Male : 1975 Arrival Date: 12/01/2020 Time: 12:15 Bed 16 Private MD: ED Physician Luther Bourne HPI: 12/01 14:19 This 45 yrs old Male presents to ER via Ambulatory with complaints of pm1 Testicular Swelling. 14:19 The patient presents with swelling, of the scrotum right side. Onset: The pm1 symptoms/episode began/occurred 1 week(s) ago. Modifying factors: The symptoms are alleviated by nothing, the symptoms are aggravated by nothing. Associated signs and symptoms: Pertinent negatives: abdominal pain, constipation, dysuria, fever, nausea, vomiting. Severity of symptoms: in the emergency department the symptoms are actually worse. The patient has been recently seen by a physician: Patient was seen here 5 days ago for the same complaint. Dx with epididymitis and was discharged home to follow up with urology. Attempted to see urologist today but [facility], went to urgent care which referred him to the ER. Historical: - Allergies: 12:35 No Known Allergies; ll1 - PMHx: 12:35 Diverticulitis; GERD; Pancreatitis; ll1 - PSHx: 12:35 Colonostomy reversal; Hernia repair with mesh; ll1 - Immunization history:: Flu vaccine is not up to date. - Social history:: Smoking status: Patient reports the use of cigarette tobacco products, smokes one pack cigarettes per day. ROS: 14:19 Constitutional: Negative for fever, chills, and weight loss, Cardiovascular: Negative pm1 for chest pain, palpitations, and edema, Respiratory: Negative for shortness of breath, cough, wheezing, and pleuritic chest pain, Abdomen/GI: Negative for abdominal pain, nausea, vomiting, diarrhea, and constipation, Back: Negative for injury and pain. 14:19 MS/Extremity: Negative for injury and deformity, Skin: Negative for injury, rash, and discoloration, Neuro: Negative for headache, weakness, numbness, tingling, and seizure. 14:19 : Positive for testicular pain Negative for urinary symptoms, penile pain. 14:19 All other systems are negative. Exam: 14:19 Constitutional: This is a well developed, well nourished patient who is awake, alert, pm1 and in no acute distress. Head/Face: Normocephalic, atraumatic. 14:19 Back: No spinal tenderness. No costovertebral tenderness. Full range of motion. 14:19 Skin: Warm, dry with normal turgor. Normal color with no rashes, no lesions, and no evidence of cellulitis. MS/ Extremity: Pulses equal, no cyanosis. Neurovascular intact. Full, normal range of motion. 14:19 Cardiovascular: Exam negative for acute changes, Rate: normal, Rhythm: regular, Pulses: no pulse deficits are appreciated. 14:19 Respiratory: Exam negative for acute changes, respiratory distress, shortness of breath. 14:19 Abdomen/GI: Inspection: abdomen appears normal, Palpation: abdomen is soft and non-tender, in all quadrants. 14:19 : Male external genitalia: swelling, that is mild, left scrotal area. 14:19 Neuro: Exam negative for acute changes, Orientation: is normal, Mentation: is normal, Motor: is normal, moves all fours. Vital Signs: 12:32 BP 142 / 95; Pulse 82; Resp 17; Temp 98.0; Pulse Ox 99% ; Weight 95.25 kg; Height 6 ft. ll1 0 in. (182.88 cm); Pain 8/10; 12:32 Body Mass Index 28.48 (95.25 kg, 182.88 cm) ll1 MDM: 13:33 Patient medically screened. pm1 16:11 Data reviewed: vital signs. Data interpreted: Pulse oximetry: on room air is 99 %. pm1 Interpretation: normal. 16:11 Counseling: I had a detailed discussion with the patient and/or guardian regarding: the pm1 historical points, exam findings, and any diagnostic results supporting the discharge/admit diagnosis, lab results, radiology results, the need for outpatient follow up, for definitive care, a urologist, to return to the emergency department if symptoms worsen or persist or if there are any questions or concerns that arise at home. 12/01 14:17 Order name: Urine Microscopic Only pm1 12/01 15:17 Order name: Urine Dipstick-Ancillary; Complete Time: 16:11 EDMS 12/01 12:37 Order name: US Scrotum Testicles; Complete Time: 14:07 iw 12/01 14:17 Order name: Urine Dipstick-Ancillary (obtain specimen); Complete Time: 15:20 pm1 12/01 15:57 Order name: Urine Microscopic Only; Complete Time: 16:11 EDMS Administered Medications: 14:48 Drug: [place] (HYDROcodone-acetaminophen) 10 mg-325 mg 1 tabs Route: PO; jl7 15:30 Follow up: Response: No adverse reaction; Pain is decreased jl7 Disposition: 12/01/20 16:12 Discharged to Home. Impression: Testicular mass. - Condition is Stable. - Discharge Instructions: Testicular Self-Exam. - Medication Reconciliation Form, Thank You Letter, Antibiotic Education, Prescription Opioid Use form. - Follow up: Emergency Department; When: As needed; Reason: Worsening of condition. Follow up: Private Physician; When: 2 - 3 days; Reason: Recheck today's complaints, Continuance of care, Re-evaluation by your physician. - Problem is new. - Symptoms have improved. Signatures: Dispatcher [employer] EDNM Dre Langford NP CHEFS pm1 Mana Christensen RN RN jl7 Hugh Alfonso RN RN ll1 Corrections: (The following items were deleted from the chart) 16:18 16:12 12/01/2020 16:12 Discharged to Home. Impression: Testicular mass. Condition is jl7 Stable. Forms are Medication Reconciliation Form, Thank You Letter, Antibiotic Education, Prescription Opioid Use. Follow up: Emergency Department; When: As needed; Reason: Worsening of condition. Follow up: Private Physician; When: 2 - 3 days; Reason: Recheck today's complaints, Continuance of care, Re-evaluation by your physician. Problem is new. Symptoms have improved. pm1
[2020-12-01 16:24] VITALS: BP 142/95; TEMP 98; O2SAT 99
== END 2020-12-01 16:18 | disposition home or self-care (01) ==
LOC: ER 12:12
DX: N50.89 Other specified disorders of the male genital organs (principal); K21.9 Gastro-esophageal reflux disease without esophagitis; F17.210 Nicotine dependence, cigarettes, uncomplicated
CPT/HCPCS: 76870; 81003; 81015; 99283

== ENCOUNTER 2022-03-10 14:30 | Emergency (ER) | payer BC ==
--- OUTSIDE RECORDS SUMMARY | 2022-03-10 14:34 | XMS REPORT | Continuity of Care Document ---
:1975 Author Organization [facility] t Address 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 12-03 [facility] 00:00: Medical 00 Center No known No known Disease Unive rs active active ity of problems problems [facility] Allergies, Adverse Reactions, Alerts Allergy Allergy Status Severity Reaction(s) Onset Inactive Treating Comm ents Source Name Type Date Date Clinician No Known DA Active U 2019-0 [facility] 06[facility]14 [facility] s 00:00: [address] No Known DA Active U 0 [facility] Allergie 06-14 [facility] 00:00: [address] NO KNOWN Allergy Active [facility] Social History Social Habit Start Date Stop Date Quantity Comments Source History of tobacco Cigarette Smoker [facility] of use [facility] Cigarette 2020-12-06 2020-12-06 University of pack-years 00:00:00 00:00:00 [facility] Cigarettes smoked 2018-12-04 2018-12-04 CAMILA Mcnamara current (pack per 00:00:00 00:00:00 [facility] Center day) - Reported Tobacco use and 2018-12-04 2018-12-[address] [facility] [address] [facility] kenikolai exposure 00:00:00 00:00:00 [facility] Center Sex Ass[birth year] At [birth year] CAMILA Mcclain 00:00:00 00:00:00 [facility] Center Smoking Status Start Date Stop Date Source Current every day smoker 2020-12-06 [facility] Ordered Filled Start Stop Current Ordering Indication Dosage Frequency Signature Comments Components Source Medication Medication Date Date Medication? Clinician (SIG) Name Name glecaprevir Yes [id number] 3{tbl} Take 3 Univers -pibrentasv 3-22 tablets by it y of ir 100-40 00:00: mouth [place] mg 00 daily. Medical Branch glecaprevir Yes [id number] 3{tbl} Take 3 Univers -pibrentasv 3-22 tablets by it y of ir 100-40 00:00: mouth [place] mg 00 daily. [facility] Branch glecaprevir 2020-06 Yes [id number] 3{tbl} Take 3 Univers -pibrentasv 2-22 tablets by it y of ir 100-40 00:00: mouth [place] mg 00 daily. [facility] Branch glecaprevir 2020-06- No [id number] 3{tbl} Take 3 Univers -pibrentasv 2-22 03-22 tablets by i ty of ir 100-40 00:00: 00:00 mouth [place] mg 00 :00 daily. [facility] Branch glecaprevir 2020-06- No [id number] 3{tbl} Take 3 Univers -pibrentasv 2-08 02-03 tablets by i ty of ir 100-40 00:00: 05:59 mouth [place] mg 00 :00 daily for Medical 56 days. Branch glecaprevir 2020-06- No [id number] 3{tbl} Take 3 Univers -pibrentasv 07-21 tablets by i ty of ir 100-40 00:00: 05:59 mouth [place] mg 00 :00 daily for Medical 56 days. [place] glecaprevir 2020-06- No [id number] 3{tbl} Take 3 Univers -pibrentasv 07-21 tablets by i ty of ir 100-40 00:00: 00:00 mouth [place] mg 00 :00 daily for Medical 56 days. Branch Immunizations Ordered Filled Immunization Date Status Comments [facility] e Immunization Name Name SARS-COV-2 COVID-19 2020-12-05 Completed Unive rsity of PFIZER VACCINE 00:00:00 [facility] SARS-COV-2 COVID-19 2020-12-05 Completed Unive rsity of PFIZER VACCINE 00:00:00 [facility] SARS-COV-2 COVID-19 2020-12-05 Completed Unive rsity of PFIZER VACCINE 00:00:00 [facility] SARS-COV-2 COVID-19 2020-12-05 Completed Unive rsity of PFIZER VACCINE 00:00:00 [facility] SARS-COV-2 COVID-19 2020-12-05 Completed Unive rsity of PFIZER VACCINE 00:00:00 [facility] Procedures This patient has no known procedures. Encounters Start End Encounter Admission Attending Care Care Encounter Source Date/Time Date/Time Type Type Clinicians Facility Department ID 2019-06-17 Inpatient [facility] [id number] [facility] 09:23:00 80 [facility] [place] 2019-06-14 [facility] [id number] [facility] 10:29:00 83 [facility] [place] 2021-09-07 2021-09-07 Telephone [employer], [place] [id number] Univers 00:00:00 00:00:00 Nyasia E Y HEALTH [id number] [id number] [id number] [address] 2021-09-01 2021-09-01 Telephone [employer], UN[facility]ERS[place] [id number] Univers 00:00:00 00:00:00 Nyasia E Y HEALTH [id number] [id number] [id number] [address] 2021-06-02 2021-06-02 Telephone [place] [facility] [id number] Univers 00:00:00 00:00:00 Rogelio HEALTH [id number] [id number] [facility] [phone] [address] ([facility]) 2021-06-02 2021-06-02 [facility] [id number] Univers 00:00:00 00:00:00 Nyasia E Y HEALTH [id number] [id number] [id number] [address] 2021-05-04 2021-05-04 [facility] [id number] Univers 00:00:00 00:00:00 [facility] [place] E SPECIALTY [id number] [id number] [facility] AT [phone] [address] Results Test Description Test Time Test Comments Results Result Comments Source LIPASE 2018-12-07 07:30:00 Test Item Value Reference Range Interpretation Comme nts LIPASE (BEAKER) (test code = 749) 238 U/L 8-78 H TISSUE [id number] 08:54:00Surgical Pathology Report Case: [id number] Authorizing Provider: Stefanie Maya MD Collected: 12/05/2018 0933 Ordering Location: [address] Received: 12/05/2018 1350 Service Pathologist: Christy Perdomo MD Specimen: Biopsy, Gastric, Gastric/antrum biopsy A. STOMACH, ANTRUM, BIOPSY: -BODY/TRANSITIONAL MUCOSA WITH NO SIGNIFICANT DIAGNOSTIC ABNORMALITY - NEGATIVE FOR HELICOBACTER PYLORI ORGANISMS BY WARTHIN STARRY STAIN - NEGATIVE FOR INTESTINAL METAPLASIA, DYSPLASIA, MALIGNANCY Signing Pathologist Direct Phone Line: [phone] signed by Christy Perdomo MD on 12/06/2018 at 8:54 [id number], presence of unspecified bleedingGastric antrum biopsyThe specimen consists of three pieces of esposito tissue measuring 2 mm in greatest dimension each, submitted entirely as A1. TW/plPerformed.The interpretation of this case included the use of immunohistochemistry or special stains.Control Slides Examined: In-house known positive controls were evaluated along with the test tissue. These control slides run alongside of the patients sample show appropriate staining.Internal positive and negative controls when available are evaluated Immunohistochemistry technical testing was performed at [facility] where it was developed and its performance characteristics were determined. It has not been cleared or approved by the U.S. Food and Drug Administration. The FDA has determined that such clearance or approval is not necessary. The test is used for clinical purposes. It should not be regarded as investigational or for research. This laboratory is certified under the Clinical Laboratory Improvement Amendments of 1988 (CLIA-88) as qualified to perform high complexity clinical laboratory testing.LIPID [id number] 06:14:00 Test Item Value Reference Range Interpretation Comments TRIGLYCERIDES (BEAKER) (test code = 106 mg/dL 540) CHOLESTEROL (BEAKER) (test code = 102 mg/dL 631) HDL CHOLESTEROL (BEAKER) (test code 14 mg/dL = 976) LDL CHOLESTEROL CALCULATED (BEAKER) 67 mg/dL (test code = 633) Triglyceride Reference Range: Low Risk <150 Borderline 150-199 High Risk 200- 499 Very High Risk >=500Cholesterol Reference Range: Low Risk <200 Borderline 200-239 High Risk >240HDL Cholesterol Reference Range: Low Risk >=60 High Risk <40LDL Cholesterol Reference Range: Optimal <100 Near Optimal 100-129 Borderline 130-159 High 160-189 Very High >=190BASIC METABOLIC [id number] 06:14:00 Test Item Value Reference Range Interpretation [...] APPLICABLE FOR DIALYSIS PATIEN TS. HEPATIC FUNCTION [id number] 06:14:00 Test Item Value Reference Range Interpretation [...] 6-55 347) CBC W/PLT COUNT & AUTO [id number] 05:29:00 Test Item Value Reference Range Interpretation [...] PERCENT (BEAKER) (test code = 2801) LIPID [id number] 06:19:00 Test Item Value Reference Range Interpretation Comments TRIGLYCERIDES (BEAKER) (test code = 95 mg/dL 540) CHOLESTEROL (BEAKER) (test code = 98 mg/dL 631) HDL CHOLESTEROL (BEAKER) (test code 14 mg/dL = 976) LDL CHOLESTEROL CALCULATED (BEAKER) 65 mg/dL (test code = 633) Triglyceride Reference Range: Low Risk <150 Borderline 150-199 High Risk 200- 499 Very High Risk >=500Cholesterol Reference Range: Low Risk <200 Borderline 200-239 High Risk >240HDL Cholesterol Reference Range: Low Risk >=60 High Risk <40LDL Cholesterol Reference Range: Optimal <100 Near Optimal 100-129 Borderline 130-159 High 160-189 Very High >=190BASIC METABOLIC [id number] 06:19:00 Test Item Value Reference Range Interpretation [...] APPLICABLE FOR DIALYSIS PATIEN TS. HEPATIC FUNCTION [id number] 06:19:00 Test Item Value Reference Range Interpretation [...] 6-55 347) CBC W/PLT COUNT & AUTO [id number] 05:47:00 Test Item Value Reference Range Interpretation [...] (BEAKER) (test code = 2801) U/S, ABDOMINAL, [id number] 22:07:00Abdomen limited area? Add comment if clarification is needed.->Right upper quadrantReason for exam:->Elevated Lipase - evaluate for gallstonesFINAL REPORT INDICATION: Elevated lipase. Evaluate for gallstones. TECHNIQUE: Abdominal ultrasound limited (right upper quadrant). COMPARISON: None. [...] unremarkable.Abdominal aorta not visualized because of bowel gas. IMPRESSION: Pancreas not visualized because of bowel gas.No cholelithiasis. Signed: Davey Martini MDReport Verified Date/Time: 12/04/2018 22:07:39 Reading Location: [address] Consult Reading Room HEMOGLOBIN [id number] 09:50:00 Test Item Value Reference Range Interpretation Comments HEMOGLOBIN A1C (BEAKER) (test code = 5.0 % 4.3-6.1 368) LIPID [id number] 06:14:00 Test Item Value Reference Range Interpretation Comments TRIGLYCERIDES (BEAKER) (test code = 109 mg/dL 540) CHOLESTEROL (BEAKER) (test code = 107 mg/dL 631) HDL CHOLESTEROL (BEAKER) (test code 17 mg/dL = 976) LDL CHOLESTEROL CALCULATED (BEAKER) 68 mg/dL (test code = 633) Triglyceride Reference Range: Low Risk <150 Borderline 150-199 High Risk 200- 499 Very High Risk >=500Cholesterol Reference Range: Low Risk <200 Borderline 200-239 High Risk >240HDL Cholesterol Reference Range: Low Risk >=60 High Risk <40LDL Cholesterol Reference Range: Optimal <100 Near Optimal 100-129 Borderline 130-159 High 160-189 Very High >=190BASIC METABOLIC [id number] 06:14:00 Test Item Value Reference Range Interpretation [...] APPLICABLE FOR DIALYSIS PATIEN TS. HEPATIC FUNCTION [id number] 06:14:00 Test Item Value Reference Range Interpretation [...] (test code = 12 U/L 6-55 347) [id number] 06:14:00 Test Item Value Reference Range Interpretation Comments LIPASE (BEAKER) (test code = 749) 279 U/L 8-78 H CBC W/PLT COUNT & AUTO [id number] 05:59:00 Test Item Value Reference Range Interpretation [...] 417) IMMATURE GRANULOCYTES-RELATIVE 0 % 0-1 PERCENT (JEANNETTEAKER) (test code = 2801)
[2022-03-10] MEDS ORDERED: LIDOCAINE 1% MPF 30 ML VIAL ONE (15:13)
--- NOTE | 2022-03-10 15:55 | ER ---
Nurse's Notes [facility] Name: Kevin Chaudhary Age: 46 yrs Sex: Male : 1975 Arrival Date: 03/10/2022 Time: 14:33 Bed 12 Private MD: Diagnosis: Puncture wound with foreign body of right hand, initial encounter;Cutaneous abscess of right hand Presentation: 03/10 14:46 Chief complaint: Patient states: I think I have a wood splinter between my fingers that bm7 is infected. I tried to dig it out last night but I couldn't get it and my girlfriend made me come in today. Coronavirus screen: At this time, the client does not indicate any symptoms associated with coronavirus-19. Ebola Screen: No symptoms or risks identified at this time. Initial Sepsis Screen: Does the patient meet any 2 criteria? No. Patient's initial sepsis screen is negative. Does the patient have a suspected source of infection? No. Patient's initial sepsis screen is negative. Risk Assessment: Do you want to hurt yourself or someone else? Patient reports no desire to harm self or others. Onset of symptoms was March 10, 2022. 14:46 Method Of Arrival: Ambulatory bm7 14:46 Acuity: NIHARIKA 4 bm7 Triage Assessment: 14:47 General: Appears in no apparent distress. comfortable, Behavior is calm, cooperative, bm7 appropriate for age. Pain: Complains of pain in right hand. EENT: No deficits noted. No signs and/or symptoms were reported regarding the EENT system. Neuro: No deficits noted. Cardiovascular: No deficits noted. Respiratory: No deficits noted. GI: No deficits noted. No signs and/or symptoms were reported involving the gastrointestinal system. : No deficits noted. No signs and/or symptoms were reported regarding the genitourinary system. Derm: Skin is intact, is healthy with good turgor, Skin is dry, Skin is pink, warm \T\ dry. Musculoskeletal: No deficits noted. No signs and/or symptoms reported regarding the musculoskeletal system. Injury Description: reddened open sore between right thumb and index finger. Historical: - Allergies: 14:47 Hernia; bm7 - Home Meds: 14:47 Nexium 40 mg Oral cpDR 1 cap once daily [Active]; bm7 - PMHx: 14:47 Diverticulitis; GERD; Pancreatitis; bm7 - PSHx: 14:47 Colostomy; bm7 - Immunization history:: Adult Immunizations up to date, Client reports receiving the 2nd dose of the Covid vaccine, Client reports receiving the 1st dose of the Covid vaccine, Last tetanus immunization: unknown. - Social history:: Smoking status: Patient reports the use of cigarette tobacco products, smokes one pack cigarettes per day. - Family history:: not pertinent. - Hospitalizations: : No recent hospitalization is reported. Screenin:29 Abuse screen: Denies threats or abuse. Denies injuries from another. Nutritional hb screening: No deficits noted. Tuberculosis screening: No symptoms or risk factors identified. Fall Risk None identified. Assessment: 15:29 General: SEE TRIAGE ASSESSMENT. hb Vital Signs: 14:45 BP 150 / 100; Pulse 66; Resp 18; Temp 98.6(O); Pulse Ox 100% on R/A; Weight 97.52 kg bm7 (R); Height 6 ft. 0 in. (182.88 cm); Pain 6/10; 14:45 Body Mass Index 29.16 (97.52 kg, 182.88 cm) bm7 ED Course: 14:33 Patient arrived in ED. mr 14:45 Arm band placed on right wrist. bm7 14:47 Triage completed. bm7 14:57 Hector Ta MD is Attending Physician. rn 15:29 Patient has correct armband on for positive identification. hb Administered Medications: 15:57 Drug: Lidocaine (1 %) 1 vials {Note: administered by provider.} Volume: 5 ml; Route: hb Infiltration; Medication: 15:29 VIS not applicable for this client. hb Outcome: 15:54 Discharge ordered by . rn 16:17 Patient left the ED. hb Signatures: Gloria Villanueva mr Hector Ta MD MD rn Baxter, Heather, RN RN hb McCarthy, Brittany, RN RN bm7 Corrections: (The following items were deleted from the chart) 14:48 14:47 Allergies: Colostomy Reversal; bm7 bm7
--- NOTE | 2022-03-10 15:55 | EDPHYS ---
Physician Documentation [facility] Name: Kevin Chaudhary Age: 46 yrs Sex: Male : 1975 Arrival Date: 03/10/2022 Time: 14:33 Bed 12 Private MD: ED Physician Hector Ta HPI: 03/10 15:46 This 46 yrs old Male presents to ER via Ambulatory with complaints of hand rn pain/swelling. 15:46 The patient or guardian reports pain, swelling, tenderness. The complaints affect the rn right hand, 1st webspace. Onset: The symptoms/episode began/occurred 2 day(s) ago. Modifying factors: The symptoms are alleviated by nothing, the symptoms are aggravated by touching area. Associated signs and symptoms: Pertinent negatives: cyanosis distally, decreased sensation distally, fever. Severity of symptoms: At their worst the symptoms were moderate, in the emergency department the symptoms are unchanged. The patient has experienced a previous episode. The patient has not recently seen a physician. REports got splinter stuck in hand 6 months ago, part of mop, has had swelling and infection at that location before. PResents with increased swelling and tenderness to same location, thinks is getting infected once again.. Historical: - Allergies: 14:47 Hernia; bm7 - Home Meds: 14:47 Nexium 40 mg Oral cpDR 1 cap once daily [Active]; bm7 - PMHx: 14:47 Diverticulitis; GERD; Pancreatitis; bm7 - PSHx: 14:47 Colostomy; bm7 - Immunization history:: Adult Immunizations up to date, Client reports receiving the 2nd dose of the Covid vaccine, Client reports receiving the 1st dose of the Covid vaccine, Last tetanus immunization: unknown. - Social history:: Smoking status: Patient reports the use of cigarette tobacco products, smokes one pack cigarettes per day. - Family history:: not pertinent. - Hospitalizations: : No recent hospitalization is reported. ROS: 15:46 Constitutional: Negative for fever, chills, and weight loss, Skin: + swelling and rn tenderness right hand, 1st webspace. Exam: 15:46 Constitutional: This is a well developed, well nourished patient who is awake, alert, rn and in no acute distress. MS/ Extremity: Pulses equal, no cyanosis. Neurovascular intact. Full, normal range of motion. Equal circumference. Right hand, 1st webspace with tender nodule, no drainage, + possible fluctuance. Vital Signs: 14:45 BP 150 / 100; Pulse 66; Resp 18; Temp 98.6(O); Pulse Ox 100% on R/A; Weight 97.52 kg bm7 (R); Height 6 ft. 0 in. (182.88 cm); Pain 6/10; 14:45 Body Mass Index 29.16 (97.52 kg, 182.88 cm) bm7 Procedures: 15:46 Foreign Body Removal: splinter, from the right hand, by using a hemostat, incising to rn remove, using lidocaine 1% without epinephrine to anesthesize the area, Dressing: bandaid, The patient tolerated the removal well. 15:46 Ultrasound: Type:. rn 15:46 I \T\ D: Incision and drainage was performed for an abscess of the right hand Prepped rn with Betadine, Anesthetized with 2 ml's 1% Lidocaine. Incised with #11 blade. Drained small amount serosanguinous fluid. bloody fluid. Dressing: None the patient tolerated the procedure well. MDM: 14:57 Patient medically screened. rn 15:46 Differential diagnosis: abscess, nodule, foreign body. Data reviewed: vital signs, rn nurses notes, and as a result, I will discharge patient. Counseling: I had a detailed discussion with the patient and/or guardian regarding: the historical points, exam findings, and any diagnostic results supporting the discharge/admit diagnosis, the need for outpatient follow up, to return to the emergency department if symptoms worsen or persist or if there are any questions or concerns that arise at home. Response to treatment: the patient's symptoms have markedly improved after treatment, and as a result, I will discharge patient. Special discussion: I discussed with the patient/guardian in detail that at this point there is no indication for admission to the hospital. It is understood, however, that if the symptoms persist or worsen the patient needs to return immediately for re-evaluation. Administered Medications: 15:57 Drug: Lidocaine (1 %) 1 vials {Note: administered by provider.} Volume: 5 ml; Route: hb Infiltration; Disposition Summary: 03/10/22 15:54 Discharge Ordered Location: Home rn Problem: new rn Symptoms: have improved rn Condition: Stable rn Diagnosis - Puncture wound with foreign body of right hand, initial encounter rn - Cutaneous abscess of right hand rn Followup: rn - With: Private Physician - When: As needed - Reason: Recheck today's complaints, Re-evaluation by your physician Discharge Instructions: - Discharge Summary Sheet rn - Incision and Drainage, Care After rn - Hand or Foot Foreign Body, Adult rn Forms: - Medication Reconciliation Form rn - Thank You Letter rn - Antibiotic director learning services - Prescription Opioid Use rn Prescriptions: - Clindamycin HCl 300 mg Oral Capsule - take 1 capsule by ORAL route every 6 hours for 10 days; 40 capsule; Refills: 0, rn Product Selection Permitted Signatures: Hector Ta MD MD rn Baxter, Heather, RN RN Sharon Muniz RN RN bm7 Corrections: (The following items were deleted from the chart) 14:48 14:47 Allergies: Colostomy Reversal; bm7 bm7
[2022-03-12 09:06] VITALS: BP 150/100; TEMP 98.6; O2SAT 100
== END 2022-03-10 16:17 | disposition home or self-care (01) ==
LOC: ER 14:30
PROC: 0HCFXZZ Extirpation of Matter from Right Hand Skin, External Approach (ICD-10-PCS; principal; 2022-03-10)
PROC: 0H9FXZZ Drainage of Right Hand Skin, External Approach (ICD-10-PCS; 2022-03-10)
DX: L02.511 Cutaneous abscess of right hand (principal); S61.441A Puncture wound with foreign body of right hand, initial encounter; F17.210 Nicotine dependence, cigarettes, uncomplicated
CPT/HCPCS: 99282

== ENCOUNTER 2022-11-15 22:28 | Emergency (ER) | payer BC ==
--- NOTE | 2022-11-15 22:53 | EDPHYS ---
Physician Documentation [facility] Name: Kevin Chaudhary Age: 47 yrs Sex: Male : 1975 Arrival Date: 11/15/2022 Time: 22:28 Bed Waiting Private MD: ED Physician Ethan Del Castillo HPI: 11/15 22:40 This 47 yrs old Male presents to ER via Unassigned with complaints of LUMP sp4 UNDER ARM. 22:47 47-year-old male presents with 2 weeks of right axilla lump. Patient states he squeezed sp4 out some infectious debris. But several days ago there appeared some redness around the right axillary skin associated with pain. . Historical: - PMHx: 22:48 Diverticulitis; GERD; Pancreatitis; sp4 - PSHx: 22:48 Colostomy; sp4 - Immunization history:: Client reports receiving the 2nd dose of the Covid vaccine. - Family history:: not pertinent. - Social history:: Smoking status: Patient reports the use of cigarette tobacco products, smokes one pack cigarettes per day. ROS: 22:48 Constitutional: Negative for fever, chills, and weight loss, Eyes: Negative for injury, sp4 pain, redness, and discharge, Skin: Negative for injury, positive for pain, redness, swelling a right axillary skin Neuro: Negative for headache, weakness, numbness, tingling, and seizure. 22:48 All other systems are negative. Exam: 22:48 Constitutional: This is a well developed, well nourished patient who is awake, alert, sp4 and in no acute distress. Head/Face: Normocephalic, atraumatic. Eyes: Pupils equal round and reactive to light, extra-ocular motions intact. Lids and lashes normal. Conjunctiva and sclera are not injected. Cornea within normal limits. Periorbital areas with no swelling, redness, or edema. ENT: Nares patent. No nasal discharge, no septal abnormalities noted. Tympanic membranes are normal and external auditory canals are clear. Oropharynx with no redness, swelling, or masses, exudates, or evidence of obstruction, uvula midline. Mucous membranes moist. Neck: Trachea midline, no thyromegaly or masses palpated, and no cervical lymphadenopathy. Supple, full range of motion without nuchal rigidity, or vertebral point tenderness. No Meningismus. Chest/axilla: Normal chest wall appearance and motion. Nontender with no deformity. Positive for right axillary infected sweat gland without drainable pus pocket. Associated area of cellulitis around right axillary lesion just inferior to right axilla . Cardiovascular: Regular rate and rhythm with a normal S1 and S2. No gallops, murmurs, or rubs. Normal PMI, no JVD. No pulse deficits. Respiratory: Lungs have equal breath sounds bilaterally, clear to auscultation and percussion. No rales, rhonchi or wheezes noted. No increased work of breathing, no retractions or nasal flaring. Abdomen/GI: Soft, non-tender, with normal bowel sounds. No distension or tympany. No guarding or rebound. No evidence of tenderness throughout. Back: No spinal tenderness. No costovertebral tenderness. Skin: Warm, dry with normal turgor. Normal color with no rashes, no lesions, cellulitis of the right axillary region, MS/ Extremity: Pulses equal, no cyanosis. Neurovascular intact. Full, normal range of motion. Neuro: Awake and alert, GCS 15, oriented to person, place, time, and situation. Cranial nerves II-XII grossly intact. Motor strength 5/5 in all extremities. Sensory grossly intact. Psych: Awake, alert, with orientation to person, place and time. Behavior, mood, and affect are within normal limits Vital Signs: 22:53 BP 137 / 88; Pulse 78; Resp 17; Temp 98.2; Pulse Ox 97% ; Weight 97.52 kg; Height 6 ft. vc1 0 in. ; Pain 2/10; 22:53 Body Mass Index 29.16 (97.52 kg, 182.88 cm) vc1 22:53 Pain Scale: Adult vc1 MDM: 22:41 Patient medically screened. sp4 22:48 Differential Diagnosis altered mental status. Data reviewed: vital signs, nurses notes, sp4 old medical records. ED course: There is cellulitis just inferior to the right axilla. Small area of cellulitis at this time IV antibiotics not indicated will try p.o. course of Bactrim and Keflex for the next 10 days. Administered Medications: 22:59 Drug: Cephalexin PO 500 mg Route: PO; vc1 23:00 Follow up: Response: Medication administered at discharge. vc1 23:00 Drug: Trimethoprim-Sulfamethoxazole PO (160 mg-800 mg (DS) 1 tablet Route: PO; vc1 23:00 Follow up: Response: Medication administered at discharge. vc1 Disposition Summary: 11/15/22 22:52 Discharge Ordered Location: Home sp4 Problem: new sp4 Symptoms: are unchanged sp4 Condition: Stable sp4 Diagnosis - Cellulitis of chest wall sp4 - Cellulitis right axilla, infected sebaceous gland right axilla sp4 Followup: sp4 - With: Private Physician - When: 7 - 10 days - Reason: Recheck today's complaints Discharge Instructions: - Discharge Summary Sheet sp4 - Cellulitis, Adult sp4 Forms: - Antibiotic Education sp4 Prescriptions: - Cephalexin 500 mg Oral Capsule - take 1 capsule by ORAL route every 8 hours for 10 days; 30 capsule; Refills: 0, sp4 Product Selection Permitted - Bactrim DS 800-160 mg Oral Tablet - take 1 tablet by ORAL route every 12 hours for 5 days; 20 tablet; Refills: 0, sp4 Product Selection Permitted Signatures: Vero De Leon RN RN vc1 Ethan Del Castillo MD MD sp4
--- OUTSIDE RECORDS SUMMARY | 2022-11-15 22:58 | XMS REPORT | Continuity of Care Document ---
:1975 Author Organization [facility] t Address [address] [place] [address] [place] [id number] Care Team Providers Name Role Phone Heidi Zarate MD Primary Care Physician Fabio ACNRenato Vides Attending Clinician [place] [facility] Attending Clinician Unavailable BRADLY FRY Attending Clinician Unavailable RENATO MCCARTHY Attending Clinician Unavailable Vls-Lab Attending Clinician Unavailable Bradly Fry MD Attending Clinician [phone] Doctor Unassigned, [place] Attending Clinician Unavailable STIVEN ODELL Attending Clinician Unavailable Heidi Zarate MD Attending Clinician Blayne Ramírez MD Attending Clinician Pcp-Lab Attending Clinician Unavailable Unknown, Attending Attending Clinician Unavailable BLAYNE RAMÍREZ Attending Clinician Unavailable Carlie Ramey MD Attending Clinician CARLIE RAMEY Attending Clinician Unavailable KUSHAL BRAUN Attending Clinician Unavailable Physician, No Primary or Family Admitting Clinician Unavaila ble KUSHAL BRAUN Admitting Clinician Unavailable Payers Payer Name Policy Type Policy Number Effective Date Expiration Date S sean Problems Condition Condition Condition Status Onset Resolution Last Treating Co mments Source Name Details Category Date Date Treatment Clinician Date Gastroduod Gastroduod Disease Active [facility] No known No known Disease Unive rs active active ity of problems problems [facility] Allergies, Adverse Reactions, Alerts Allergy Allergy Status Severity Reaction(s) Onset Inactive Treating Comm ents Source Name Type Date Date Clinician No Known DA Active [facility] 06-14 [facility] 00:[facility]: Lesley 00 [facility] No Known DA Active U [facility] Allergie 06-14 [facility] 00:00: Lesley 00 [facility] NO KNOWN Allergy Active [facility] Social History Social Habit Start Date Stop Date Quantity Comments Source History of tobacco Cigarette Smoker [facility] use [facility] Cigarette 2020-12-06 2020-12-06 University of pack-years 00:00:00 00:00:00 [facility] Cigarettes smoked 2018-12-04 2018-12-[address] [facility] current (pack per 00:00:00 00:00:00 [facility] day) - Reported Tobacco use and 2018-12-04 2018-12-[address] [facility] exposure 00:00:00 00:00:00 [facility] Sex Assigned At [address] [facility] 00:00:00 00:00:00 [facility] Smoking Status Start Date Stop Date Source Current every day smoker 2020-12-06 00:00:00 Uni versity [facility] Medications Ordered Filled Start Stop Current Ordering Indication Dosage Frequency Signature Comments Components Source Medication Medication Date Date Medication? Clinician (SIG) Name Name glecaprevir Yes [id number] 3{tbl} Take 3 Univers -pibrentasv 3-22 tablets by it y of ir 100-40 00:00: mouth [place] mg 00 daily. [facility] glecaprevir Yes [id number] 3{tbl} Take 3 Univers -pibrentasv 3-22 tablets by it y of ir 100-40 00:00: mouth [place] mg 00 daily. [facility] glecaprevir 2020-06 Yes [id number] 3{tbl} Take 3 Univers -pibrentasv 2-22 tablets by it y of ir 100-40 00:00: mouth [place] mg 00 [facility]. [facility] No [id number] 3{tbl} Take 3 Univers -pibrentasv 2-22 03-22 tablets by i ty of ir 100-40 00:00: 00:00 mouth [place] mg 00 :00 [facility]. [facility] No [id number] 3{tbl} Take 3 Univers -pibrentasv 2-08 02-03 tablets by i ty of ir 100-40 00:00: 05:59 mouth [place] mg 00 :00 daily for Medical 56 days. [facility] No [id number] 3{tbl} Take 3 Univers -pibrentasv 2-08 02-03 tablets by i ty of ir 100-40 00:00: 05:59 mouth [place] mg 00 :00 daily for Medical 56 days. [facility] 2020-06- No [id number] 3{tbl} Take 3 Univers -pibrentasv 2-08 12-22 tablets by i ty of ir 100-40 00:00: 00:00 mouth [place] mg 00 :00 daily for Medical 56 days. [place] Immunizations Ordered Filled Immunization Date Status Comments [facility] e Immunization Name Name SARS-COV-2 COVID-19 2020-12-05 Completed Unive rsity of PFIZER VACCINE 00:00:00 [facility] SARS-COV-2 COVID-19 2020-12-05 Completed Unive rsity of PFIZER VACCINE 00:00:00 [facility] SARS-COV-2 COVID-19 2020-12-05 Completed Unive rsity of PFIZER VACCINE 00:00:00 [facility] SARS-COV-2 COVID-19 2020-12-05 Completed Unive rsity of PFIZER VACCINE 00:00:00 [facility] SARS-COV-2 COVID-19 2020-12-05 Completed Unive rsity of PFIZER VACCINE 00:00:00 [facility] Procedures This patient has no known procedures. Encounters Start End Encounter Admission Attending Care Care Encounter Source Date/Time Date/Time Type Type Clinicians Facility Department ID 2019-06-17 Inpatient [facility] [id number] [facility] 09:23:00 80 [facility] 2019-06-14 Inpatient [facility] [id number] [facility] 10:29:00 83 [facility] 2021-09-07 2021-09-07 [facility] [id number] Univers 00:00:00 00:00:00 Renato E Y HEALTH [id number] it[id number] [id number] [address] 2021-09-01 2021-09-01 [facility] [id number] Univers 00:00:00 00:00:00 Renato E Y HEALTH [id number] [place] [id number] [address] 2021-06-02 2021-06-02 [facility] [id number] Univers 00:00:00 00:00:00 Rogelio HEALTH [id number] it [place] [facility] [phone] [address] ([facility]) 2021-06-02 2021-06-02 [facility] [id number] Univers 00:00:00 00:00:00 Renato E Y HEALTH [id number] [place] [id number] [address] 2021-05-04 2021-05-04 [facility] [id number] Univers 00:00:00 00:00:00 [facility] Renato E SPECIALTY [id number] [id number] AT [id number] [place] kady HERNANDE[address] 2021-04-13 2021-04-13 Outpatient R ROJAS [facility] [id number] Univers 10:30:00 10:30:00 BRADLY ity [facility] 2021-03-27 2021-03-27 [facility] [id number] [facility] 11:45:00 23:59:00 Encounter Renato E SPECIALTY [id number] [place] [id number] [place] kady MARYLynette 806 [facility] 2021-03-27 2021-03-27 Outpatient R DE [facility] [id number] Univers 00:00:00 00:00:00 RENATO olivo o f [facility] 2021-03-26 2021-03-26 Outpatient R [facility] [id number] Univers 13:00:00 13:00:00 ity [facility] 2021-03-26 2021-03-26 Screen Repairer Crusher Vls-Lab [facility] [id number] Univers 12:44:16 12:59:16 Visit Renato Mccarthy SPECIALTY 350.1.13.1 0 [place] [phone] [place] kady MARYLynette 353 [facility] 2021-03-26 2021-03-26 Telephone [facility] [id number] [facility] 00:00:00 00:00:00 Renato E SPECIALTY [id number] [place] [id number] [place] kady BARROSO 072 [facility] 2021-03-24 2021-03-24 Screen Repairer Crusher Vls-Lab [facility] [id number] Univers 09:20:21 09:35:21 Visit Renato Mccarthy SPECIALTY 350.1.13.1 0 [place] [phone] [place] kady MARYLynette 353 [facility] 2021-03-24 2021-03-24 Office [facility] [id number] Univers 08:42:36 09:12:36 Visit Renato E SPECIALTY 350.1.13.10 [place] [id number] [place] bahmanandrade BARROSO 072 [facility] 2021-03-24 2021-03-24 [facility] [id number] Univers 08:30:00 08:30:00 RENATO barnes f [facility] 2021-01-08 2021-01-08 Office RENE Fry [id number] Univers 09:42:21 10:41:02 Visit [facility] 350.1.13.10 i ty of [facility] 4.2.7.2.686 Johan as [phone] [facility] [address] [place] 2021-01-08 2021-01-08 [facility] [id number] Univers 09:30:00 09:30:00 BRADLY arteagay of [facility] 2021-01-08 2021-01-08 Orders Doctor DAVIS 1.2.840.114 [id number] Univers 00:00:00 00:00:00 Only Unassigned, ALEX 350.1.13.10 ity of [place] [facility] 4.2.7.2.686 Johan as [id number] [facility] 009 Branch 2021-01-02 2021-01-02 Outpatient [facility] [id number] Univers 11:30:00 11:30:00 STIVEN olivo of [facility] 2020-12-30 2020-12-30 Outpatient [facility] [id number] Univers 14:30:00 14:30:00 RENATO bran [facility] 2020-12-17 2020-12-17 [facility] [id number] Univers 00:00:00 00:00:00 Heidi PRIMARY 350.1.13.10 [place] [id number] [place] bahmanandrade 044 Branch 2020-12-15 2020-12-15 [facility] DOUG Ramírez 1.2.840.114 [id number] Univers 11:00:00 23:59:00 Encounter Blayne [facility] 350.1.13.10 ity of CL[place] [id number] [facility] 806 Branch 2020-12-15 2020-12-15 Screen Repairer Crusher Pcp-Lab [facility] 1.2.840.114 [id number] Univers 13:38:43 13:53:43 Visit Unknown, Attending PRIMARY 350.1.13.10 [place] [id number] [place] dicak 366 Branch 2020-12-15 2020-12-15 Outpatient R DARRELL [facility] [id number] Univers 00:00:00 00:00:00 BLAYNE ity of [facility] 2020-12-07 2020-12-07 Telephone Elliot [facility] [id number] Univers 00:00:00 00:00:00 Heidi PRIMARY 350.1.13.10 [place] [id number] [place] dicak 044 Branch 2020-12-05 2020-12-05 Outpatient [facility] [id number] Univers 11:40:00 11:40:00 ity of [facility] 2020-12-05 2020-12-05 Screen Repairer Crusher Pcp-Lab [facility] [id number] [id number] Univers 11:24:19 11:39:19 Visit Carlie Ramey PRIMARY 350.1.13.1 0 [place] [id number] [place] dicak 366 Branch 2020-12-05 2020-12-05 Office Heidi Zarate [facility] 1.2.840.114 [id number] Univers 09:55:16 11:22:18 Visit Carlie Ramey PRIMARY 350.1.13.1 0 it[place] [id number] [place] dical 044 Branch 2020-12-05 2020-12-05 Outpatient R KAROLINE [facility] [id number] Univers 10:00:00 10:00:00 CARLIE lynette [facility] Results Test Description Test Time Test Comments Results Result Comments Source LIPASE 2018-12-07 07:30:00 Test Item Value Reference Range Interpretation Comme nts LIPASE (BEAKER) (test code = 749) 238 U/L 8-78 H TISSUE [id number] 08:54:00Surgical Pathology Report Case: [id number] Authorizing Provider: Stefanie Maya MD Collected: 12/05/2018 0933 Ordering Location: [address] Received: 12/05/2018 1350 Service Pathologist: Christy Perdomo MD Specimen: Biopsy, Gastric, Gastric/antrum biopsy A. STOMACH, ANTRUM, BIOPSY: - BODY/TRANSITIONAL MUCOSA WITH NO SIGNIFICANT DIAGNOSTIC ABNORMALITY - NEGATIVE FOR HELICOBACTER PYLORI ORGANISMS BY WARTHIN STARRY STAIN - NEGATIVE FOR INTESTINAL METAPLASIA, DYSPLASIA, MALIGNANCY Signing Pathologist Direct Phone Line: [phone] signed by Christy Perdomo MD on 12/06/2018 at 8:54 [id number], presence of unspecified bleedingGastric antrum biopsyThe specimen consists of three pieces of esposito tissue measuring 2 mm in greatest dimension each, submitted entirely as A1. TW/plPerformed.The interpretation of this case included the use of immunohistochemistry or special stains.Control Slides Examined: In-house known positive controls were evaluated along withthe test tissue. These control slides run alongside of the patients sample show appropriate staining. Internal positive and negative controls when available are evaluated Immunohistochemistry technicaltesting was performed at [facility], Pathology Laboratory where it was developed [...] to perform high complexity clinical laboratory testing.LIPID [id number] 06:14:00 Test Item Value Reference Range Interpretation [...] 130-159 High 160-189 Very High >=190BASIC METABOLIC [id number] 06:14:00 Test Item Value Reference Range Interpretation [...] APPLICABLE FOR DIALYSIS PATIEN TS. HEPATIC FUNCTION [id number] 06:14:00 Test Item Value Reference Range Interpretation [...] 6-55 347) CBC W/PLT COUNT & AUTO [id number] 05:29:00 Test Item Value Reference Range Interpretation [...] PERCENT (BEAKER) (test code = 2801) LIPID [id number] 06:19:00 Test Item Value Reference Range Interpretation [...] 130-159 High 160-189 Very High >=190BASIC METABOLIC [id number] 06:19:00 Test Item Value Reference Range Interpretation [...] APPLICABLE FOR DIALYSIS PATIEN TS. HEPATIC FUNCTION [id number] 06:19:00 Test Item Value Reference Range Interpretation [...] 6-55 347) CBC W/PLT COUNT & AUTO [id number] 05:47:00 Test Item Value Reference Range Interpretation [...] (BEAKER) (test code = 2801) U/S, ABDOMINAL, [id number] 22:07:00Abdomen limited area? Add comment if clarification [...] visualized because of bowel gas.No cholelithiasis. Signed: Fernando Shelton MDReport Verified Date/Time: 12/04/2018 22:07:39 Reading Location: [facility] B1 C013W Consult Reading Room HEMOGLOBIN [id number] 09:50:00 Test Item Value Reference Range Interpretation Comments HEMOGLOBIN A1C (BEAKER) (test code = 5.0 % 4.3-6.1 368) LIPID [id number] 06:14:00 Test Item Value Reference Range Interpretation [...] 130-159 High 160-189 Very High >=190BASIC METABOLIC [id number] 06:14:00 Test Item Value Reference Range Interpretation [...] APPLICABLE FOR DIALYSIS PATIEN TS. HEPATIC FUNCTION [id number] 06:14:00 Test Item Value Reference Range Interpretation [...] (test code = 12 U/L 6-55 347) [id number] 06:14:00 Test Item Value Reference Range Interpretation Comments LIPASE (BEAKER) (test code = 749) 279 U/L 8-78 H CBC W/PLT COUNT & AUTO [id number] 05:59:00 Test Item Value Reference Range Interpretation [...] 0-1 PERCENT (BEAKER) (test code = 2801) Notes Date/Time Note Provider Source 2019-06-17 09:24:00-00:00 [facility] OR A [facility] EMERGENCY PROVIDER REPORT REPORT#:[id number] REPORT STATUS: Signed DATE:06/17/19 TIME: 923 PATIENT: BELTRAN HUNTLEY UNIT #: [id number] ROOM/BED: AGE: 43 SEX: M PCP PHYS: No Primary or Family Ph ysician SERVICE AUTHOR: Keith Garcia DO * ALL edits or amendments must be made on the Frevvo/Sentrinsic document * HPI-Recheck W/B/S General Confirmed Patient Yes Patient Type New patient Initial Greet Date/Time 06/17/19923 Presentation Chief Complaint Wound check Prior Tx of Wound/Injury Wound packed Hx Obtained From Patient Onset Occurred One week ago Symptom Duration Since onset Progression since Onset Gradually improving Location LUE Severity: Current No pain currently Associated Other Pt denies other symptoms Exacerbated by Nothing Relieved by Nothing Free Text HPI Notes Free Text HPI Notes 43M presents to ED w/ CC of wound check. Pt pres ented to ED 3 days ago w/ a wound to LUE when it was incised. Pt rep orts initial injury happened 1 wk ago. He reports that wound packin g has came out last nigth and this AM so decided to come get reevaluated in ED. Pt has been taking a bx prescribed to him in ED 3 days ago. Portions of this section were scribed by Salvador Krause on 06/17/19 at 0932 Review of Systems ROS Statements All systems rev neg except as marked. Focused Review of Systems Constitutional Denies: Chills, Fever. Skin Denies: Rash, Swelling. Additional Review of Systems Eyes Denies: Swelling R, Swelling L. Respiratory Denies: Shortness of breath, Wheezing. Cardiovascular Denies: Chest pain, Palpitations. GI Denies: Nausea, Vomiting. Male Denies: Dysuria, Flank pain. Musculoskeletal Denies: Back pain, Neck pain. Allergy/Immun Denies: Itching, Sneezing. Neurologic Denies: Confusion, Dizziness. Psychiatric Denies: Agitation, Anxiety. Portions of this section were scribed by Salvador Krause on 06/17/19 at 0924 Past Medical History - Adult Stated Complaint ABCESS RECHECK Allergies Coded Allergies: No Known Allergies (06/14/19) Home Medications Reported Medications ESOMEPRAZOLE MAG THORNTON (NexIUM) (Unknown Dose) Review of Nursing Notes Rev avail, and agree Pt reports no significant: Past medical history, Past surgical history, Family history, Social history Smoking status for patients 13 years old or olde r: Unknown,if ever smoked Portions of this section were scribed by Salvador Krause on 06/17/19 at 0924 Physical Exam Vital Signs Vital Signs First Documented: Result Date Time Pulse Ox 97 06/17 922 B/P 157/94 06/17 922 B/P Mean 115 06/17 922 Temp 36.9 06/17 922 Pulse 102 06/17 922 Resp 16 06/17 922 Last Documented: Result Date Time Pulse Ox 97 06/17 0823 B/P 157/94 06/17 0823 B/P Mean 115 06/17 922 Temp 36.9 06/17 922 Pulse 102 06/17 922 Resp 16 06/17 922 Review of Vital Signs Reviewed Focused PE General/Const General/Const Awake, Alert, No acute distress Skin Skin Atraumatic, Color NL, No rash, Warm, Dry, Intact Additional PE MS Head Head Atraumatic, Normocephalic Eyes Eyes Atraumatic, PERRL, EOMI, No nystagmus Ears/Nose/Throat Ears/Nose/Throat Atraumatic, Airway patent, Muc ous membranes moist, Pharynx NL MS Neck Neck Atraumatic, Supple, No meningismus Resp/Chest Respiratory/Chest Atraumatic, Breath sounds NL, Breath sounds = bilat, No respiratory distress Cardiovascular Cardiovascular Heart rate NL, Regular rhythm, H eart sounds NL, No gallop Abdomen/GI Abdomen/GI Atraumatic, Soft, No guarding, No re bound MS Back Back Atraumatic, Inspection NL, Full range of m otion MS Upper Extrem Text/Dict Notes Well-healing wound w/ mild enduration and mild e rythema. MS Wrist/Hand Wrist/Hand Atraumatic, Inspection NL, Full rang e of motion MS Lower Extrem Lower Ext/Pelvis/MS Atraumatic, Inspection NL, Full range of motion MS Ankle/Foot Ankle/Foot Atraumatic, Inspection NL, Full rang e of motion Neurologic Neurologic Oriented X3, Speech NL, No motor def icits, No sensory deficits Portions of this section were scribed by Salvador Krause on 06/17/19 at 0932 Interpretation Diagnostics Point of Care Testing Pulse Oximetry Pulse Ox % 97 On: Room air Interpretation Interpreted by hi, Pulse oximetr y normal Time 922 Portions of this section were scribed by Salvador Krause on 06/17/19 at 0924 Patient Discharge Departure Vital Signs/Condition Vital Signs First Documented: Result Date Time Pulse Ox 97 06/17 922 B/P 157/94 06/17 922 B/P Mean 115 06/17 922 Temp 36.9 06/17 922 Pulse 102 06/17 922 Resp 16 06/17 922 Last Documented: Result Date Time Pulse Ox 97 06/17 922 B/P 157/94 06/17 922 B/P Mean 115 06/17 922 Temp 36.9 06/17 922 Pulse 102 06/17 922 Resp 16 06/17 922 All vital signs available at the time of this en try have been reviewed. Condition Stable Clinical Impression Clinical Impression Primary Impression: Encounter for evaluation of wound Disposition Decision Discharge )( Discharged to Home Yes )( Time 925 )( Date 06/17/19 Discharge/Care Plan Counseled Regarding Diagnosis, Need for follow-u p, When to return to ED Discharge Note I have spoken with the patie nt and/or caregivers. I have explained the patient's condition, diagnoses and lee atment plan based on the information available to me at this time. I have answered the patient's and/ or caregiver's questions and addressed any concerns. The patient and/or careg eliana have as good an understanding of the patient 's diagnosis, condition and treatment plan as can be expected at this point. The vital signs have bee n stable. The patient's condition is stable and appr opriate for discharge from the emergency department. The patient will pursue further outpatient evalu ation with the primary care physician or other designated or consulting phys ician as outlined in the discharge instructions. The patient and/or caregivers are agreeable to this plan of care and follow-up instructions have been exp lained in detail. The patient and/or caregivers have received these instructio ns in written format and have expressed an understanding of the discharge inst ructions. The patient and/or caregivers are aware that any significant change in condition or worsening of symptoms should prompt an immediate return to [facility] or the closest emergency department or a call to 911. Supervising Physician Note Scribe Statement Salvador Sandoval, 06/17[birth year]1903 08, scribing for and in the presence of [Dr. Garcia]. Signed By: Salvador Sandoval, 06/17/19925 Provider Scribed Statement I personally performed the s ervices described in this documentation and reviewed the documentation that was dictated to the scrib e(s) in my presence, and it accurately records my words and actions. Celena Garcia, 06/19/19 Portions of this section were scribed by Salvador Krause on 06/17/19 at 0932 Electronically Signed by Keith Garcia DO on 0 06/19/19 at 0502 [facility] #:[id number] END OF REPORT 2019-06-14 10:44:00-00:00 [facility] OR A [facility] OF [facility] EMERGENCY PROVIDER REPORT REPORT#:[id number] REPORT STATUS: Signed DATE:06/14/19 TIME: 1044 PATIENT: BELTRAN HUNTLEY UNIT #: [id number] ROOM/BED: AGE: 43 SEX: M PCP PHYS: No Primary or Family Ph ysician SERVICE AUTHOR: Zoran Vernon III DO * ALL edits or amendments must be made on the Frevvo/computer document * HPI-Rash/Abscess/Cellulitis General Confirmed Patient Yes Patient Type New patient Initial Greet Date/Time 06/14/19 1034 Presentation Chief Complaint Abscess Hx Obtained From Patient Onset Occurred Days ago Symptom Duration Since onset Progression since Onset Unchanged Location L arm Quality Painful Severity: Onset Mild Severity: Current Pain level 7 out of 10 Associated Other Pt denies other symptoms Exacerbated by Nothing Relieved by Nothing Free Text HPI Notes Free Text HPI Notes 43 y/o M presents to the ED with complaint of abscess on his L arm that onset a couple of days ago. Pt state s that he injected himself with morphine on the 04 of June and shortly after the abscess on his arm began to form. He states the area is pain rating it a 7/10 pain. He denie s any other symptoms at this time. Portions of this section were scribed by Victor M Gillespie I. on 06/14/19 at 1049 Review of Systems ROS Statements All systems rev neg except as marked. Focused Review of Systems Constitutional Denies: Chills, Fever. Eyes Denies: Blurred bilat, Discharge bilat. Ears/Nose/Throat Denies: Ear drainage bilat, Ear ringing bilat. Respiratory Denies: Cough, non-productive, Dyspnea on exerti on. Cardiovascular Denies: Chest pain, Dyspnea on exertion. GI Denies: Abdominal pain, Diarrhea. Musculoskeletal Denies: Back pain, Extremity pain. Skin Reports: Abscess. Denies: Abrasion. Allergy/Immun Denies: Allergic reaction, Anaphylaxis. Additional Review of Systems Male Denies: Dysuria, Flank pain. Hematologic Denies: Adenopathy, Bleeding. Portions of this section were scribed by Victor M Gillespie I. on 06/14/19 at 1044 Past Medical History - Adult Stated Complaint INFECTION ON ARM Allergies Coded Allergies: No Known Allergies (06/14/19) Home Medications Reported Medications ESOMEPRAZOLE MAG THORNTON (NexIUM) (Unknown Dose) Review of Nursing Notes Rev avail, and agree Pt reports no significant: Past medical history, Past surgical history, Family history Smoking status for patients 13 years old or olde r: Unknown,if ever smoked Portions of this section were scribed by Victor M Gillespie I. on 06/14/19 at 1044 Physical Exam Vital Signs Vital Signs First Documented: Result Date Time Pulse Ox 98 06/14 1029 B/P 161/95 06/14 1029 B/P Mean 117 06/14 1029 Temp 36.9 06/14 1029 Pulse 94 06/14 1029 Resp 16 06/14 1029 Last Documented: Result Date Time Pulse Ox 98 06/14 1029 B/P 161/95 06/14 1029 B/P Mean 117 06/14 1029 Temp 36.9 06/14 1029 Pulse 94 06/14 1029 Resp 16 06/14 1029 Review of Vital Signs Reviewed Focused PE General/Const General/Const Awake, Alert, No acute distress Ears/Nose/Throat Ears/Nose/Throat Atraumatic, Airway patent, Muc ous membranes moist Resp/Chest Respiratory/Chest Atraumatic, Breath sounds NL, Breath sounds = bilat Cardiovascular Cardiovascular Heart rate NL, Regular rhythm, H eart sounds NL MS Upper Extrem Upper Extremity/MS Full range of motion Text/Dict Notes 3 cm indurated abscess on L arm w/ surrounding e rythema MS Lower Extrem Lower Ext/Pelvis/MS Atraumatic, Inspection NL, Full range of motion Skin Skin Dry, Intact Text/Dict Notes 3 cm indurated abscess on L arm w/ surrounding e rythema Neurologic Neurologic Oriented X3, Speech NL, No motor def icits, CN II - XII intact Additional PE MS Head Head Atraumatic, Normocephalic Eyes Eyes Atraumatic, PERRL, EOMI Portions of this section were scribed by Victor M Gillespie I. on 06/14/19 at 1049 Procedures Incis Drainage Abscess #1 Time 1039 Procedure Performed by ED physician Consent/Setup/Site Prep Verified correct patient , Informed consent provided, Consent from patient, Hand hygiene observed, Sta nd sterile technique, Sterile drapes applied Location of Abscess L arm Skin Preparation Agent Normal saline Local Anesthesia Lidocaine 1%, 5 mL, 27g needle Incised Abscess with #11 scalpel Pus Drained Large, Purulent discharge, Bloody Irrigation Yes, Copious Post-Procedure/Complications Packing placed, Culture obtained, Dressing applied, No complications, Condition improved, To lerated procedure well, Patient stable Portions of this section were scribed by Victor M Gillespie I. on 06/14/19 at 1049 Re-Evaluation MDM ED Course Medication(s) Ordered Medication(s) Ordered: Cardiovascular Drugs Sig/Devin Start time Last Medication Dose Route Stop Time Status Admin Lidocaine HCl 20 ML X1ED STA 06/14 1036 DC / 2 LOCAL 06/14 1037 1039 Portions of this section were scribed by Victor M Gillespie I. on 06/14/19 at 1044 Patient Discharge Departure Vital Signs/Condition Vital Signs First Documented: Result Date Time Pulse Ox 98 06/14 1029 B/P 161/95 06/14 1029 B/P Mean 117 / 1029 Temp 36.9 06/14 1029 Pulse 94 01/ 1029 Resp 16 06/14 1029 Last Documented: Result Date Time Pulse Ox 98 06/14 1029 B/P 161/95 / 1029 B/P Mean 117 / 1029 Temp 36.9 06/14 1029 Pulse 94 / 1029 Resp 16 06/14 1029 All vital signs available at the time of this en try have been reviewed. Condition Improved Clinical Impression Clinical Impression Primary Impression: Abscess of left arm Disposition Decision Discharge )( Discharged to Home Yes )( Time 1045 )( Date 06/14/19 Discharge/Care Plan Counseled Regarding Diagnosi s, Prescriptions, Need for follow-up, When to return to ED Prescriptions Bactrim Keflex Prescriptions Reviewed Risks, Benefits, Alternat jonathan treatment Discharge Note I have spoken with the patie nt and/or caregivers. I have explained the patient's condition, diagnoses and lee atment plan based on the information available to me at this time. I have answered the patient's and/ or caregiver's questions and addressed any concerns. The patient and/or careg eliana have as good an understanding of the patient 's diagnosis, condition and treatment plan as can be expected at this point. The vital signs have bee n stable. The patient's condition is stable and appr opriate for discharge from the emergency department. The patient will pursue further outpatient evalu ation with the primary care physician or other designated or consulting phys ician as outlined in the discharge instructions. The patient and/or caregivers are agreeable to this plan of care and follow-up instructions have been exp lained in detail. The patient and/or caregivers have received these instructio ns in written format and have expressed an understanding of the discharge inst ructions. The patient and/or caregivers are aware that any significant change in condition or worsening of symptoms should prompt an immediate return to [facility] or the closest emergency department or a call to 911. Quality Measures BP F/U for HTN Referred for BP f/u < 4wk, F/u wi th PCP/other doc Smoking Cessation Screened, tobacco user, Tobacc o cess intervention Supervising Physician Note Scribe Statement Kalie Gillespie I., 06/14/19 1 049, scribing for and in the presence of [Dr. Vernon ]. Signed By: Kalie Gillespie I., 06/14/19 1049 Provider Scribed Statement I personally performed the s ervices described in this documentation and reviewed the documentation that was dictated to the scrib e(s) in my presence, and it accurately records my words and actions. Zoran Vernon, 06/15/19 Portions of this section were scribed by Victor M Gillespie I. on 06/14/19 at 1049 at [phone] [facility] #:[id number] END OF REPORT
--- NOTE | 2022-11-15 23:01 | ER ---
Nurse's Notes [facility] Name: Kevin Chaudhary Age: 47 yrs Sex: Male : 1975 Arrival Date: 11/15/2022 Time: 22:28 Bed Waiting Private MD: Diagnosis: Cellulitis of chest wall;Cellulitis right axilla, infected sebaceous gland right axilla Presentation: 11/15 22:53 Chief complaint: Patient states: I have a lump under my right arm. Coronavirus screen: vc1 Vaccine status: Patient reports receiving the 2nd dose of the covid vaccine. plus booster Client denies travel out of the [place] in the last 14 days. At this time, the client does not indicate any symptoms associated with coronavirus-19. Ebola Screen: Patient negative for fever greater than or equal to 101.5 degrees Fahrenheit, and additional compatible Ebola Virus Disease symptoms Patient denies exposure to infectious person. Patient denies travel to an Ebola-affected area in the 21 days before illness onset. No symptoms or risks identified at this time. Initial Sepsis Screen: Does the patient meet any 2 criteria? No. Patient's initial sepsis screen is negative. Does the patient have a suspected source of infection? Yes: Skin breakdown/wound. Risk Assessment: Do you want to hurt yourself or someone else? Patient reports no desire to harm self or others. Onset of symptoms is unknown. 22:53 Method Of Arrival: Ambulatory vc1 22:53 Acuity: NIHARIKA 4 vc1 Triage Assessment: 22:55 General: Appears in no apparent distress. uncomfortable, Behavior is calm, cooperative, vc1 appropriate for age. Pain: Complains of pain in right axilla Pain does not radiate. Pain currently is 2 out of 10 on a pain scale. EENT: No deficits noted. No signs and/or symptoms were reported regarding the EENT system. Neuro: Level of Consciousness is awake, alert, obeys commands, Oriented to person, place, time, situation, Appropriate for age. Cardiovascular: No deficits noted. Respiratory: Airway is patent Respiratory effort is even, unlabored, Respiratory pattern is regular, symmetrical. GI: No deficits noted. No signs and/or symptoms were reported involving the gastrointestinal system. : No deficits noted. No signs and/or symptoms were reported regarding the genitourinary system. Derm: Skin is red, Wound noted right axilla. Musculoskeletal: No deficits noted. No signs and/or symptoms reported regarding the musculoskeletal system. Historical: - PMHx: 22:48 Diverticulitis; GERD; Pancreatitis; sp4 - PSHx: 22:48 Colostomy; sp4 - Immunization history:: Client reports receiving the 2nd dose of the Covid vaccine. - Family history:: not pertinent. - Social history:: Smoking status: Patient reports the use of cigarette tobacco products, smokes one pack cigarettes per day. Screenin:54 [facility] ED Fall Risk Assessment (Adult) History of falling in the last 3 months, vc1 including since admission No falls in past 3 months (0 pts) Confusion or Disorientation No (0 pts) Intoxicated or Sedated No (0 pts) Impaired Gait No (0 pts) Mobility Assist Device Used No (0 pt) Altered Elimination No (0 pt) Score/Fall Risk Level 0 - 2 = Low Risk Oriented to surroundings, Maintained a safe environment, Educated pt \T\ family on fall prevention, incl call for assistance when getting out of bed. Abuse screen: Denies threats or abuse. Nutritional screening: No deficits noted. Tuberculosis screening: No symptoms or risk factors identified. Vital Signs: 22:53 BP 137 / 88; Pulse 78; Resp 17; Temp 98.2; Pulse Ox 97% ; Weight 97.52 kg; Height 6 ft. vc1 0 in. ; Pain 2/10; 22:53 Body Mass Index 29.16 (97.52 kg, 182.88 cm) vc1 22:53 Pain Scale: Adult vc1 ED Course: 22:37 Patient arrived in ED. ag3 22:40 Ethan Del Castillo MD is Attending Physician. sp4 22:54 Triage completed. vc1 22:54 Arm band placed on left wrist. vc1 23:00 No provider procedures requiring assistance completed. Patient did not have IV access vc1 during this emergency room visit. Administered Medications: 22:59 Drug: Cephalexin PO 500 mg Route: PO; vc1 23:00 Follow up: Response: Medication administered at discharge. vc1 23:00 Drug: Trimethoprim-Sulfamethoxazole PO (160 mg-800 mg (DS) 1 tablet Route: PO; vc1 23:00 Follow up: Response: Medication administered at discharge. vc1 Medication: 22:56 VIS not applicable for this client. vc1 Outcome: 22:52 Discharge ordered by . sp4 23:00 Discharged to home ambulatory. vc1 23:00 Condition: good 23:00 Discharge instructions given to patient, Instructed on discharge instructions, follow up and referral plans. medication usage, Demonstrated understanding of instructions, follow-up care, medications, Prescriptions given X 2. 23:00 Patient left the ED. vc1 Signatures: Conchis Daniel ag3 Vero De Leon RN RN vc1 Ethan Del Castillo MD MD sp4
[2022-11-15] MEDS ORDERED: CEPHALEXIN 250 MG CAP ONE (23:05)
[2022-11-15] MEDS ORDERED: SMZ./TMP. 800/160 MG TABLET ONE (23:05)
[2022-11-15 23:56] VITALS: BP 137/88; TEMP 98.2; O2SAT 97
== END 2022-11-15 23:00 | disposition home or self-care (01) ==
LOC: ER 22:28
DX: L03.112 Cellulitis of left axilla (principal); L03.313 Cellulitis of chest wall; L72.3 Sebaceous cyst; F17.210 Nicotine dependence, cigarettes, uncomplicated
CPT/HCPCS: 99283

== ENCOUNTER 2024-06-04 09:29 | Emergency (ER) | payer BC, SELFPAY ==
--- NOTE | 2024-06-04 09:45 | EDPHYS ---
Physician Documentation [facility] Name: Kevin Chaudhary Age: 48 yrs Sex: Male : 1975 Arrival Date: 06/04/2024 Time: 09:29 Bed 20 Private MD: ED Physician Shahab Lemon HPI: 06/04 09:46 This 48 yrs old Male presents to ER via Unassigned with complaints of abscess tooth. sb4 09:46 The patient presents with broken tooth/teeth, pain, redness, swelling. The problem is sb4 located in the lower left second bicuspid. Onset: The symptoms/episode began/occurred last night. Associated signs and symptoms: Pertinent positives: pain, swelling, facial, mandibular, Pertinent negatives: fever, inability to eat, nausea, vomiting. has a known cracked tooth, started hurting last night, woke up with a swollen jaw. called dentist, cannot get him for a few days due to the holidays, was told to come to the ED. no trismus,fever. Historical: - Allergies: 09:49 No Known Allergies; rs5 - PMHx: 09:49 Diverticulitis; GERD; Pancreatitis; rs5 - PSHx: 09:49 Colostomy; rs5 - Immunization history:: Adult Immunizations up to date. - Infectious Disease History:: Denies. - Social history:: Smoking status: Patient denies any tobacco usage or history of. ROS: 09:46 Constitutional: Negative for fever, chills, and weight loss, sb4 09:46 ENT: Positive for dental pain, 09:46 All other systems are negative, Exam: 09:46 Constitutional: This is a well developed, well nourished patient who is awake, alert, sb4 and in no acute distress. Eyes: Extra-ocular motions intact. Periorbital areas with no swelling, redness, or edema. ENT: Mucous membranes moist. Respiratory: No increased work of breathing, no retractions or nasal flaring. Skin: Warm, dry with normal turgor. Normal color with no rashes, no lesions, and no evidence of cellulitis. 09:46 Head/face: Noted is swelling, that is mild, of the left jaw, 09:46 ENT: Dental exam: dental caries, diffusely, fractured teeth are noted, specifically the lower left second bicuspid, gum swelling, that is moderate, pain, Vital Signs: 09:47 BP 135 / 81; Pulse 74; Resp 17; Temp 98; Pulse Ox 99% on R/A; rs5 09:50 BP 134 / 77; Pulse 70; Resp 17; Pulse Ox 99% on R/A; rs5 MDM: 09:40 Medical Screening Exam initiated sb4 09:46 Data reviewed: vital signs, nurses notes, and as a result, I will discharge patient. sb4 Counseling: I had a detailed discussion with the patient and/or guardian regarding the historical points, exam findings, and any diagnostic results supporting the discharge/admit diagnosis, the presence of at least one elevated blood pressure reading (>120/80) during this emergency department visit, the need for outpatient follow up, a dentist, to return to the emergency department if symptoms worsen or persist or if there are any questions or concerns that arise at home. Administered Medications: No medications were administered Disposition Summary: 06/04/24 09:44 Discharge Ordered Notes: Location: Home sb4 Problem: new sb4 Symptoms: are unchanged sb4 Condition: Stable sb4 Diagnosis - Periapical abscess without sinus sb4 Followup: sb4 - With: Pelon Valverde DDS - When: 2 - 3 days - Reason: Recheck today's complaints, Re-evaluation by your physician Discharge Instructions: - Discharge Summary Sheet sb4 - Dental Pain, [id number] sb4 - Dental Abscess, [id number] sb4 Forms: - Antibiotic Education sb4 - Patient Portal Instructions sb4 - Leadership Thank You Letter sb4 Prescriptions: - Amoxicillin 875 mg Oral Tablet - take 1 tablet ORAL route every 12 hours for 10 days; 20 tablet; Refills: 0, sb4 Product Selection Permitted - Ibuprofen 800 mg Oral Tablet - take 1 tablet ORAL route every 8 hours As needed take with food; 30 tablet; sb4 Refills: 0, Product Selection Permitted Addendum: 06/07/2024 12:42 Co-signature as Attending Physician, Shahab Lemon MD I agree with the assessment and c [place] plan of care. Signatures: Shahab Lemon MD MD cha Brown, Sophia, PAEsequielC PAEsequielC sb4 Keith Cintron, RN RN rs5
--- NOTE | 2024-06-04 09:58 | ER ---
Nurse's Notes [facility] Name: Kevin Chaudhary Age: 48 yrs Sex: Male : 1975 Arrival Date: 06/04/2024 Time: 09:29 Bed 20 Private MD: Diagnosis: Periapical abscess without sinus Presentation: 06/04 09:47 Chief complaint: Patient states: Left sided jaw pain that started this morning. Pt rs5 states "I have a broken tooth on the left side of my jaw and I haven't been able to see a dentist yet.". Coronavirus screen: At this time, the client does not indicate any symptoms associated with coronavirus-19. Ebola Screen: No symptoms or risks identified at this time. Initial Sepsis Screen: Does the patient meet any 2 criteria? No. Patient's initial sepsis screen is negative. Does the patient have a suspected source of infection? No. Patient's initial sepsis screen is negative. Risk Assessment: Do you want to hurt yourself or someone else? Patient reports no desire to harm self or others. Onset of symptoms was June 04, 2024. 09:47 Method Of Arrival: Ambulatory rs5 09:47 Acuity: NIHARIKA 4 rs5 Triage Assessment: 09:44 General: Appears in no apparent distress. uncomfortable, Behavior is calm, cooperative. rs5 Historical: - Allergies: 09:49 No Known Allergies; rs5 - PMHx: 09:49 Diverticulitis; GERD; Pancreatitis; rs5 - PSHx: 09:49 Colostomy; rs5 - Immunization history:: Adult Immunizations up to date. - Infectious Disease History:: Denies. - Social history:: Smoking status: Patient denies any tobacco usage or history of. Screenin:44 [facility] ED Fall Risk Assessment (Adult) History of falling in the last 3 months, rs5 including since admission No falls in past 3 months (0 pts) Confusion or Disorientation No (0 pts) Intoxicated or Sedated No (0 pts) Impaired Gait No (0 pts) Mobility Assist Device Used No (0 pt) Altered Elimination No (0 pt) Score/Fall Risk Level 0 - 2 = Low Risk Oriented to surroundings, Maintained a safe environment. Abuse screen: Denies threats or abuse. Nutritional screening: No deficits noted. Tuberculosis screening: No symptoms or risk factors identified. Assessment: 09:44 General: Appears in no apparent distress. uncomfortable, Behavior is calm, cooperative. rs5 Pain: Complains of pain in left lower jaw Pain currently is 5 out of 10 on a pain scale. Quality of pain is described as aching, Is continuous. Neuro: Level of Consciousness is awake, alert, obeys commands, Oriented to person, place, time, situation. Cardiovascular: Patient's skin is warm and dry. Respiratory: Airway is patent Respiratory effort is even, unlabored, Respiratory pattern is regular, symmetrical. GI: Abdomen is round non-distended, Abd is soft and non tender X 4 quads. : No signs and/or symptoms were reported regarding the genitourinary system. EENT: Reports pain in left lower jaw. Derm: Skin is intact, Skin is pink, warm \\T\\ dry. Musculoskeletal: Range of motion: intact in all extremities. 09:50 Reassessment: Patient and/or family updated on plan of care and expected duration. Pain rs5 level reassessed. Patient is alert, oriented x 3, equal unlabored respirations, skin warm/dry/pink. Vital Signs: 09:47 BP 135 / 81; Pulse 74; Resp 17; Temp 98; Pulse Ox 99% on R/A; rs5 09:50 BP 134 / 77; Pulse 70; Resp 17; Pulse Ox 99% on R/A; rs5 ED Course: 09:33 Patient arrived in ED. al6 09:34 Luciana Trammell [facility]C [facility] sb4 09:34 Shahab Lemon MD is Attending Physician. sb4 09:44 Pelon Valverde DDS is Referral Physician. sb4 09:44 Patient has correct armband on for positive identification. Placed in gown. Bed in low rs5 position. Call light in reach. Side rails up X2. 09:44 Arm band placed on right wrist. rs5 09:44 No provider procedures requiring assistance completed. rs5 09:47 Keith Cintron, TRAY is Primary Nurse. rs5 09:49 Triage completed. rs5 09:55 Provided Education on: discharge instructions . rs5 09:55 Patient did not have IV access during this emergency room visit. rs5 Administered Medications: No medications were administered Medication: 09:50 VIS not applicable for this client. rs5 Outcome: 09:44 Discharge ordered by . sb4 09:55 Discharged to home ambulatory, rs5 09:55 Condition: stable rs5 09:55 Discharge instructions given to patient, family, Instructed on discharge instructions, follow up and referral plans. medication usage, Demonstrated understanding of follow-up care, medications, 09:57 Patient left the ED. rs5 Signatures: Luciana Trammell PA-C PAAna sb4 Keith Cintron RN RN rs5 Marie Cox6
[2024-06-04 10:05] VITALS: BP 135/81; TEMP 98; O2SAT 99
== END 2024-06-04 09:57 | disposition home or self-care (01) ==
LOC: ER 09:29
DX: K04.7 Periapical abscess without sinus (principal)
CPT/HCPCS: 99282